=== PATIENT | female | born 1945 | race Caucasian/White ===

== ENCOUNTER 2021-08-12 11:54 | Emergency (ER) | payer MEDICARE, MEDICAID, SELFPAY | END 2021-08-12 13:46 | disposition left against medical advice (07) | PROVIDERS: Emergency Provider Emergency Medicine; PCP Internal Medicine | DX: R22.0 Localized swelling, mass and lump, head (principal) ==

== ENCOUNTER 2021-08-12 15:00 | Emergency (ER) | payer MEDICARE, MEDICAID, SELFPAY ==
[2021-08-12 16:47] VITALS: BP 153/55; PULSE 92; RESP 18; TEMP 36.8; O2SAT 100; BMI 20.2
--- NOTE | 2021-08-12 18:40 | ED_ITS ---
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 Per staff they noticed that her right-sided face was swollen. They deny any known injury or trauma. They did notice at will she was eating her breakfast she was grimacing while she was chewing. They deny any fevers, chills, difficulty breathing or difficulty swallowing. Related Data Previous Rx's Medication Instructions Recorded clindamycin HCl 300 mg capsule 300 mg PO TID #21 cap 08/12/21 Allergies Allergy/AdvReac Type Severity Reaction Status Date / Time JULIET Inhibitors Allergy Unknown UNKNOWN Verified 08/12/21 16:44 [JULIET INHIBITORS] Review of Systems Review of Systems: Yes all other systems are reviewed and are negative Constitutional: Constitutional: Reports no additional constitutional complaints, Denies body ache(s), Denies chills, Denies fever(s), Denies headache(s) and Denies weakness Eyes: Eyes: Reports no additional eye complaints and Denies change in vision ENT: Reports system reviewed and no additional complaints, except as documented, Reports dental pain, Denies dizziness, Reports facial pain, Denies headache(s), Denies nasal congestion, Denies nasal discharge and Denies neck pain Cardiovascular: Cardiovascular: Reports no additional cardiovascular complaints, Denies chest pain, Denies leg edema and Denies dyspnea Respiratory: Respiratory: Reports no additional respiratory complaints, Denies cough and Denies dyspnea Gastrointestinal: Gastrointestinal: Reports no additional gastrointestinal complaints, Denies abdominal pain, Denies diarrhea, Denies nausea and Denies vomiting Genitourinary: Genitourinary: Reports no additional female genitourinary complaints and Denies urinary incontinence Musculoskeletal: Musculoskeletal: Reports no additional musculoskeletal complaints, Denies back pain, Denies arthralgias, Denies joint swelling, Denies neck pain, Denies numbness and Denies tingling Integumentary/Breasts: Skin/Breast: Reports system reviewed and no additional complaints, except as docu and Denies rash Neurologic: Reports system reviewed and no additional complaints, except as d ocumented, Denies dizziness, Denies headache(s), Denies numbness, Denies tingling and Denies weakness [facility] Past Medical History Attestation statement: The following information was validated with the patient. Source: old records reviewed and nursing notes reviewed Medical History COVID-19 Diabetes Hyperlipidemia Hypertension Intellectual disability Osteoporosis Seizures Swallowing difficulty Social History Social History Advance Directives: No Advance Directives Information Provided: No Physical Exam Vital Signs: Vital Signs: Last Vital Signs Temp 98.2 F 08/12/21 16:47 Pulse 92 08/12/21 16:47 Resp 18 08/12/21 16:47 BP 153/55 H 08/12/21 16:47 Pulse Ox 100 08/12/21 16:47 BMI result Body Mass Index 20.2 Const: General: cooperative, healthy appearing, comfortable and no acute distress Limitations: no limitations HENMT: Other: Extensive dental caries. To the right cheek there is slight swelling and there is tenderness on exam. Unable to elicit which tooth is bothering the patient. There is no obvious fluctuance or induration that is concerning for an abscess. No trismus. Head: Yes normal to inspection Ears: hearing grossly normal bilaterally General nose exam: Normal external nose present Face and sinus: Yes normal facial exam Mouth: Normal oral and palatal mucosa present Throat: Yes posterior oropharynx normal Eyes: General: appearance normal, both eyes and all related structures Pupils: Equal, round and reactive pupils present Neck: Neck: Yes normal visual inspection, Yes full ROM and Yes no lymphadenopathy Chest: Chest palpation & inspection: normal inspection of the chest Resp: Effort & Inspection: normal respiratory effort Auscultation: clear to auscultation bilaterally Cardio: Rate: regular rate Rhythm: regular rhythm Peripheral pulses: Peripheral pulses 2+ throughout GI: Inspection: Yes normal to inspection Palpation (GI): Soft to palpation and nontender Auscultation: normal bowel sounds Back/Spine/Pelvis: Thoracic/Lumbar Spine: thoracic and lumbar spine normal to inspection Skin: General skin exam: no rashes or lesions noted Neuro: General: moves all extremities Cranial nerves: Yes Equal, round and reactive pupils present Extrem: General: Yes normal to inspection, Yes no pedal edema and Yes no calf tenderness Course Course Course Narrative: 75-year-old female nonverbal from a retirement with reports of right-sided facial swelling and some dental pain with chewing. Exam patien t had extensive dental caries. She does slight swelling and tenderness to the right cheek with no obvious abscess. Likely local cellulitis secondary to a dental infection. No fever. Patient is well-appearing and at her baseline per staff. Will start her on a course of antibiotics and have her follow-up with the dental clinic. Reviewed worrisome signs and symptoms of when to return to the emergency department. Comfortable discharge home. Medical Decision Making Medical Records Medical records reviewed: Yes I reviewed the patient's medical records. Lab Data Lab results reviewed: Yes I reviewed the patient's lab results. Discharge Plan Discharge Clinical Impression: Dental infection, Facial cellulitis Patient Disposition: Home, Self-Care Instructions: Cellulitis (ED), Toothache (ED) Additional Instructions: See dental clinic list soft diet take the antibiotic with food Prescriptions: New clindamycin HCl 300 mg capsule 300 mg PO TID Qty: 21 RF: 0 Referrals: Physician,Unknown J [Primary Care Provider] - 2 days
== END 2021-08-12 19:27 | disposition home or self-care (01) ==
LOC: HO.ED 18:38
PROVIDERS: Emergency Provider Emergency Medicine
DX: K04.7 Periapical abscess without sinus (principal); L03.211 Cellulitis of face; K02.9 Dental caries, unspecified
CPT/HCPCS: 99283

== ENCOUNTER 2021-11-21 16:04 | Outpatient (REF) | payer MEDICARE, MEDICAID, SELFPAY ==
[2021-11-21 17:35] LABS: Alanine Aminotransferase 16 U/L (0-31); Albumin Level 4.3 g/dL (3.5-5.0); Alkaline Phosphatase 87 U/L (39-117); Aspartate Amino Transferase 19 U/L (5-31); Bilirubin Direct < 0.2 mg/dL (0.0-0.5); Bilirubin Total 0.3 mg/dL (0.0-1.0); Total Protein 7.9 g/dL (6.5-8.0)
[2021-11-21 17:47] LABS: Phenytoin Dilantin 3.2 ug/mL (10.0-20.0)
== END 2021-11-21 16:05 | disposition home or self-care (01) ==
LOC: HO.LAB 16:04
PROVIDERS: PCP Internal Medicine; Visit Provider Psychiatry & Neurology Neurology
DX: G40.909 Epilepsy, unspecified, not intractable, without status epilepticus (principal); Z79.899 Other long term (current) drug therapy
CPT/HCPCS: 36415; 80076; 80185

== ENCOUNTER 2022-02-04 18:23 | Emergency (ER) | payer MEDICARE, MEDICAID, SELFPAY ==
[2022-02-04 18:27] VITALS: BP 175/71; PULSE 92; RESP 18; TEMP 37.2; O2SAT 98; BMI 20.6
[2022-02-04 18:56] LABS: MANUAL DIFF FLAG NO
[2022-02-04 19:07] LABS: Basophils Percent Auto 0.7 % (0-2); Eosinophils Absolute Auto 0.2 X10*3/uL (0.0-0.4); Eosinophils Percent Auto 3.3 % (0-4); Hematocrit 31.9 % (37.0-47.0); Hemoglobin 10.8 g/dl (12.0-16.0); Imm Gran Abs Auto 0.01 X10*3/uL (0.00-0.03); Imm Gran Pct Auto 0.2 % (0.0-0.4); Lymphocytes Absolute Auto 1.8 X10*3/uL (1.2-4.9); Lymphocytes Percent Auto 29.7 % (20-40); Mean Corpuscular HGB Conc 33.9 g/dl (31.0-35.0); Mean Corpuscular Hemoglobin 30.7 pg (27.0-33.0); Mean Corpuscular Volume 90.6 fL (80.0-98.0); Mean Platelet Volume 9.5 fL (9.4-12.3); Monocytes Absolute Auto 0.6 X10*3/uL (0.1-1.2); Monocytes Percent Auto 10.1 % (2-11); Neutrophils Absolute Auto 3.4 x10*3/uL (2.0-8.3); Platelet Count 310 X10*3/uL (160-400); Red Blood Count 3.52 X10*6/uL (4.20-5.50); Red Cell Distribution Width 12.2 % (11.0-16.0)
[2022-02-04 19:13] LABS: Alanine Aminotransferase 18 U/L (0-31); Alkaline Phosphatase 89 U/L (39-117); Anion Gap 18 (12-20); Aspartate Amino Transferase 19 U/L (5-31); Bilirubin Total 0.2 mg/dL (0.0-1.0); Blood Urea Nitrogen 15 mg/dL (9-16); Calcium 9.4 mg/dL (8.4-10.2); Carbon Dioxide 23 mmol/L (22-29); Chloride 92 mmol/L (96-108); Creatinine Clr Calc Pharmacy 35.5; Estimated Glomerular Filt Rate 52; Glucose Random 208 mg/dL (60-115); Potassium 4.4 mmol/L (3.3-5.1); Sodium 129 mmol/L (135-145); Total Protein 7.1 g/dL (6.5-8.0)
[2022-02-04 21:44] LABS: Appearance Urine HAZY; Color Urine YELLOW; Glucose Urine UA NEG (NEG); Leukocyte Esterase Urine 3+ (NEG); Nitrite Urine NEG (NEG); UACC Culture Trigger YES; Urine Blood NEG (NEG); Urine Ketones NEG (NEG); Urine Protein NEG (NEG-TRACE)
[2022-02-04 21:51] LABS: Bacteria Urine 4+ /LPF
[2022-02-04 21:52] LABS: Squamous Epithelial Cell Urine 2+ /LPF; WBC Clumps Urine NOTED
[2022-02-04 21:53] LABS: WBC Urine 30-49 /HPF (0-4)
[2022-02-04 21:54] LABS: RBC Urine 0-2 /HPF (0)
--- NOTE | 2022-02-04 22:02 | ED.FEMALEGU ---
HPI - Female Genitourinary General Chief complaint: Urogenital-Female Stated complaint: pain while urinating Time Seen by Provider: 02/04/22 21:01 Source: patient Mode of arrival: ambulatory Limitations: no limitations History of Present Illness HPI Narrative: 76 yold female presents to the ED dysuria as per daughter. Daughter states also increas urinary frequency. Patient states also midl abdominal cramping. Symptoms started today. Daughter and patient denies any chills, fever, chills, nausea, vomitting, or flank pain. Related Data Previous Rx's Medication Instructions Recorded clindamycin HCl 300 mg capsule 300 mg PO TID #21 cap 08/12/21 cefpodoxime 100 mg tablet 100 mg PO Q12H 7 Days #14 tab 02/04/22 Allergies Allergy/AdvReac Type Severity Reaction Status Date / Time JULIET Inhibitors Allergy Unknown UNKNOWN Verified 02/04/22 18:26 [JULIET INHIBITORS] Review of Systems Review of Systems: dysuria Yes all other systems are reviewed and are negative PMFSH Past Medical History Medical History COVID-19 Diabetes Hyperlipidemia Hypertension Intellectual disability Osteoporosis Seizures Swallowing difficulty Social History Social History Advance Directives: No Advance Directives Information Provided: No Physical Exam Vital Signs: Vital Signs: Last Vital Signs Temp 97.8 F 02/04/22 23:01 Pulse 76 02/04/22 23:01 Resp 16 02/04/22 23:01 BP 118/61 02/04/22 23:01 Pulse Ox 99 02/04/22 23:01 BMI result Body Mass Index 20.6 Const: General: cooperative, healthy appearing, comfortable, no acute distress, well developed, alert, awake and Physically active Orientation/consciousness: oriented to time and patient oriented x3 HEENT: Head: Yes normal to inspection, Yes No palpable skull fracture present, Yes normocephalic, Yes atraumatic, No abrasion, No Acrocyanosis present, No Coffey's sign, No contusion, No cranial bruits, No hematoma, No laceration, No occipital foramen tenderness, No palpable skull fracture, No raccoon eyes, No scalp lesion, No scalp tenderness, No Temporal artery tenderness present and No periorbital ecchymosis Eyes: General: appearance normal, both eyes and all related structures Neck: Neck: Yes normal visual inspection, Yes full ROM, Yes no lymphadenopathy, Yes no meningeal signs, Yes trachea midline, Yes supple, No anterior neck swelling and No tender Chest: Chest palpation & inspection: normal inspection of the chest and normal palpation of entire chest wall Resp: Effort & Inspection: normal respiratory effort and able to speak in complete sentences Auscultation: clear to auscultation bilaterally Cardio: Jugular venous distension: no JVD Heart sounds: S1 normal heart sound present and S2 normal heart sound present GI: Inspection: Yes normal to inspection and No abdominal wall ecchymosis Palpation (GI): Soft to palpation, not firm, nontender, no guarding and not rigid : General: No CVA tenderness and Yes no CVA tenderness Back/Spine/Pelvis: Back: no CVA tenderness, No CVA tenderness and No back tenderness Skin: General skin exam: no rashes or lesions noted and elasticity normal Neuro: General: oriented to time, patient oriented x3, gait normal, no meningeal signs and CN's II-XI intact bilaterally Cranial nerves: Yes CN's II-XII intact bilaterally Extrem: General: Yes normal to inspection, Yes full ROM, Yes capillary refill normal and Yes normal exam except as noted Psych: Appearance: grossly normal, well kempt and not disheveled Course Course Course Narrative: labs and UA ordered Reevaluation(s) Reevaluation #1: Labs are at baseline. UA shows UTI. patient discharged with antibiotics Time: 22:23 MDM - Female Genitourinary MDM Narrative Medical decision making narrative: UTI Lab Data Result diagrams: 02/04/22 18:51 02/04/22 18:51 Labs: Lab Results 02/04/22 02/04/22 02/04/22 Range/Units 18:51 18:51 21:39 WBC 6.0 (4.8-10.8) X10*3/uL RBC 3.52 L (4.20-5.50) X10*6/uL Hgb 10.8 L (12.0-16.0) g/dl Hct 31.9 L (37.0-47.0) % MCV 90.6 (80.0-98.0) fL MCH 30.7 (27.0-33.0) pg MCHC 33.9 (31.0-35.0) g/dl RDW 12.2 (11.0-16.0) % Plt Count 310 (160-400) X10*3/uL MPV 9.5 (9.4-12.3) fL Immature Gran % (Auto) 0.2 (0.0-0.4) % Neut % (Auto) 56.0 (45-73) % Lymph % (Auto) 29.7 (20-40) % [place] % (Auto) 10.1 (2-11) % Eos % (Auto) 3.3 (0-4) % Baso % (Auto) 0.7 (0-2) % Lymph # (Auto) 1.8 (1.2-4.9) X10*3/uL [place] # (Auto) 0.6 (0.1-1.2) X10*3/uL Eos # (Auto) 0.2 (0.0-0.4) X10*3/uL Baso # (Auto) 0.0 (0.0-0.2) X10*3/uL Abs Immat Gran (auto) 0.01 (0.00-0.03) X10*3/uL Absolute Neuts (auto) 3.4 (2.0-8.3) x10*3/uL Absolute Nucleated RBC 0.000 (0.0-0.012) X10*3/uL Nucleated RBC % (auto) 0.0 (0.0-0.2) /100WBC Sodium 129 L (135-145) mmol/L Potassium 4.4 (3.3-5.1) mmol/L Chloride 92 L (96-108) mmol/L Carbon Dioxide 23 (22-29) mmol/L Anion Gap 18 (12-20) BUN 15 (9-16) mg/dL Creatinine 1.03 (0.5-1.4) mg/dL Estim Creat Clear Calc 35.5 Estimated GFR 52 Random Glucose 208 H (60-115) mg/dL Calcium 9.4 (8.4-10.2) mg/dL Total Bilirubin 0.2 (0.0-1.0) mg/dL AST 19 (5-31) U/L ALT 18 (0-31) U/L Alkaline Phosphatase 89 (39-117) U/L Total Protein 7.1 (6.5-8.0) g/dL Albumin 4.0 (3.5-5.0) g/dL Urine Color YELLOW Urine Appearance HAZY Urine pH 6.0 (5.0-8.0) Ur Specific [place] 1.010 (1.005-1.025) Urine Protein NEG (NEG-TRACE) MG/DL Urine Glucose (UA) NEG (NEG) MG/DL Urine Ketones NEG (NEG) MG/DL Urine Blood NEG (NEG) Urine Nitrite NEG (NEG) Ur Leukocyte Esterase 3+ H (NEG) Urine RBC 0-2 (0) /HPF Urine WBC 30-49 H (0-4) /HPF Urine WBC Clumps NOTED Ur Squamous Epith Cells 2+ /LPF Urine Bacteria 4+ /LPF Discharge Plan Discharge Clinical Impression: Urinary tract infection Patient Disposition: Home, Self-Care Instructions: Urinary Tract Infection in Women (ED) Additional Instructions: You have a urine infection. You will be discharged with antibiotics. Return to the ED immediately for any abdominal pain, hematuria, dysuria, flank pain, fever, chills, nausea, vomitting, or any other concerning symptoms. Please follow up with PCP. ELEMENTARY LIBRARIAN can give patient medication. Prescriptions: New cefpodoxime 100 mg tablet 100 mg PO Q12H 7 Days Qty: 14 0RF Rx Instructions: must administer with a meal/food No Action clindamycin HCl 300 mg capsule 300 mg PO TID Qty: 21 0RF Interventions: ED Discharge Assessment Last Done: 02/04/22 23:02 Discharge Date/Time: 02/04/22 23:03 Print Language: Thai
[2022-02-04 23:01] VITALS: BP 118/61; PULSE 76; RESP 16; TEMP 36.6; O2SAT 99
== END 2022-02-04 23:03 | disposition home or self-care (01) ==
PROVIDERS: Emergency Provider Internal Medicine
DX: N39.0 Urinary tract infection, site not specified (principal); B96.20 Unspecified Escherichia coli [E. coli] as the cause of diseases classified elsewhere; E11.9 Type 2 diabetes mellitus without complications; I10 Essential (primary) hypertension; E78.5 Hyperlipidemia, unspecified
CPT/HCPCS: 36415; 51701; 80053; 81001; 85025; 87086; 87088; 87186; 99284

== ENCOUNTER 2022-03-13 16:49 | Emergency (ER) | payer MEDICARE, MEDICAID, SELFPAY ==
[2022-03-13 17:32] VITALS: BP 169/73; PULSE 91; RESP 18; TEMP 36.9; O2SAT 98; BMI 22.2
[2022-03-13 17:58] LABS: Hematocrit 32.1 % (37.0-47.0); Hemoglobin 10.5 g/dl (12.0-16.0); Mean Corpuscular HGB Conc 32.7 g/dl (31.0-35.0); Mean Corpuscular Hemoglobin 30.4 pg (27.0-33.0); Mean Platelet Volume 9.7 fL (9.4-12.3); Platelet Count 294 X10*3/uL (160-400); Red Blood Count 3.45 X10*6/uL (4.20-5.50); Red Cell Distribution Width 12.2 % (11.0-16.0); White Blood Count 6.1 X10*3/uL (4.8-10.8)
[2022-03-13 17:59] LABS: Anion Gap 17 (12-20); Blood Urea Nitrogen 23 mg/dL (9-16); Calcium 9.3 mg/dL (8.4-10.2); Carbon Dioxide 25 mmol/L (22-29); Chloride 93 mmol/L (96-108); Creatinine Clr Calc Pharmacy 28.6; Estimated Glomerular Filt Rate 45; Glucose Random 240 mg/dL (60-115); Potassium 4.7 mmol/L (3.3-5.1); Sodium 130 mmol/L (135-145)
[2022-03-13 18:06] LABS: B Type Natriuretic Peptide 13 pg/mL (<100); Troponin-I High Sensitivity < 3.5 ng/L (<3.5-17.0)
--- NOTE | 2022-03-13 22:51 | ECG_ITS ---
Test Reason : LETHAGRY Blood Pressure : / mmHG Vent. Rate : 083 BPM Atrial Rate : 083 BPM P-R Int : 156 ms QRS Dur : 062 ms QT Int : 362 ms P-R-T Axes : 039 018 052 degrees QTc Int : 425 ms Normal sinus rhythm Low voltage QRS Cannot rule out Anterior infarct , age undetermined Abnormal ECG When compared with ECG of 22-MAY-2020 10:37, ST elevation now present in Inferior leads Referred By: Tawnya Ryan Electronically Signed By:KARINA DAILY MD
--- NOTE | 2022-03-13 23:35 | ED.GENADULT ---
HPI - General Adult General Chief complaint: General Medical Stated complaint: dehydration Time Seen by Provider: 03/13/22 22:50 Source: patient, account leader and other Mode of arrival: EMS History of Present Illness HPI narrative: 76-year-old female who is [facility] in [facility] for several days of noticing that the patient has not been eating or drinking and has exhibited decreased urine output but PROCESSING MGR who is at her bedside states that she is at her baseline mentation although less active. Patient gives an affirmative when she is asked about fever, chills, abdominal pain, nausea/vomiting. Related Data Previous Rx's Medication Instructions Recorded clindamycin HCl 300 mg capsule 300 mg PO TID #21 caps 08/12/21 cefpodoxime 100 mg tablet 100 mg PO Q12H 7 days #14 tabs 02/04/22 cefdinir 300 mg capsule 300 mg PO BID 5 days #10 caps 03/14/22 Allergies Allergy/AdvReac Type Severity Reaction Status Date / Time JULIET Inhibitors Allergy Unknown UNKNOWN Verified 02/04/22 18:26 [JULIET INHIBITORS] Review of Systems Review of Systems: Pertinent positives and negatives as stated in the HPI 10 point review of systems is otherwise negative. [facility] Past Medical History Source: nursing notes reviewed Medical History COVID-19 Diabetes Hyperlipidemia Hypertension Intellectual disability Osteoporosis Seizures Swallowing difficulty Social History Social History Advance Directives: No Physical Exam ED Vital Signs: Vital Signs - 24 hr 03/13/22 17:32 Temperature 98.4 F Pulse Rate 91 Respiratory Rate 18 Blood Pressure 169/73 H Pulse Oximetry 98 Oxygen Delivery Method Room Air BMI result Body Mass Index 22.2 VITAL SIGNS: Reviewed. GENERAL: Well developed, well nourished, in no acute distress. HEAD: Normocephalic/atraumatic EYES: PERRLA, EOMI EARS: Ext canals without abnormality OROPHARYNX: no oral lesions noted, posterior pharynx clear, dry mucosa NECK: Supple, no adenopathy LUNGS: Normal breath sounds. No adventitious sounds or accessory muscle use. SpO2<98> CARDIOVASCULAR: Regular rate and rhythm without noted murmurs, no JVD or lower extremity edema. ABDOMEN: Soft, tenderness on palpation without rebound, non-distended with bowel sounds. MUSCULOSKELETAL: No tenderness, deformities, or effusions noted on gross inspection. EXTREMITIES: No cyanosis, clubbing or edema. SKIN: Inspection of the skin reveals no rashes NEUROLOGIC: Alert and oriented x 4. Strength and sensation to light touch were grossly intact x 4. Course Course Course Narrative: 76-year-old female with history and clinical presentation most consistent with UTI suspect concomitant dehydration. Patient also has multiple dental caries and minimal amount of teeth. No obvious dental infection noted. Review of all investigations significant for UTI and dehydration. Patient to receive 1 L of IV fluids and initial antibiotics. Both the patient and the research group director were informed of results and the plan. [facility] facility with remaining course of antibiotics. Medical Decision Making Lab Data Result diagrams: 03/13/22 17:37 03/13/22 17:37 Labs: Lab Results 03/13/22 03/13/22 03/13/22 Range/Units 17:37 17:37 17:37 WBC 6.1 (4.8-10.8) X10*3/uL RBC 3.45 L (4.20-5.50) X10*6/uL Hgb 10.5 L (12.0-16.0) g/dl Hct 32.1 L (37.0-47.0) % MCV 93.0 (80.0-98.0) fL MCH 30.4 (27.0-33.0) pg MCHC 32.7 (31.0-35.0) g/dl RDW 12.2 (11.0-16.0) % Plt Count 294 (160-400) X10*3/uL MPV 9.7 (9.4-12.3) fL Absolute Nucleated RBC 0.000 (0.0-0.012) X10*3/uL Nucleated RBC % (auto) 0.0 (0.0-0.2) /100WBC Sodium 130 L (135-145) mmol/L Potassium 4.7 (3.3-5.1) mmol/L Chloride 93 L (96-108) mmol/L Carbon Dioxide 25 (22-29) mmol/L Anion Gap 17 (12-20) BUN 23 H D (9-16) mg/dL Creatinine 1.16 (0.5-1.4) mg/dL Estim Creat Clear Calc 28.6 Estimated GFR 45 Random Glucose 240 H (60-115) mg/dL Calcium 9.3 (8.4-10.2) mg/dL Troponin I High Sens < 3.5 (<3.5-17.0) ng/L B-Natriuretic Peptide 13 (<100) pg/mL Urine Color Urine Appearance Urine pH (5.0-8.0) Ur Specific [place] (1.005-1.025) Urine Protein (NEG-TRACE) MG/DL Urine Glucose (UA) (NEG) MG/DL Urine Ketones (NEG) MG/DL Urine Blood (NEG) Urine Nitrite (NEG) Ur Leukocyte Esterase (NEG) Urine RBC (0) /HPF Urine WBC (0-4) /HPF Urine WBC Clumps Ur Squamous Epith Cells /LPF Urine Bacteria /LPF 03/14/22 Range/Units 00:37 WBC (4.8-10.8) X10*3/uL RBC (4.20-5.50) X10*6/uL Hgb (12.0-16.0) g/dl Hct (37.0-47.0) % MCV (80.0-98.0) fL MCH (27.0-33.0) pg MCHC (31.0-35.0) g/dl RDW (11.0-16.0) % Plt Count (160-400) X10*3/uL MPV (9.4-12.3) fL Absolute Nucleated RBC (0.0-0.012) X10*3/uL Nucleated RBC % (auto) (0.0-0.2) /100WBC Sodium (135-145) mmol/L Potassium (3.3-5.1) mmol/L Chloride (96-108) mmol/L Carbon Dioxide (22-29) mmol/L Anion Gap (12-20) BUN (9-16) mg/dL Creatinine (0.5-1.4) mg/dL Estim Creat Clear Calc Estimated GFR Random Glucose (60-115) mg/dL Calcium (8.4-10.2) mg/dL Troponin I High Sens (<3.5-17.0) ng/L B-Natriuretic Peptide (<100) pg/mL Urine Color YELLOW Urine Appearance CLOUDY Urine pH 6.0 (5.0-8.0) Ur Specific [place] 1.015 (1.005-1.025) Urine Protein NEG (NEG-TRACE) MG/DL Urine Glucose (UA) NEG (NEG) MG/DL Urine Ketones NEG (NEG) MG/DL Urine Blood NEG (NEG) Urine Nitrite POS H (NEG) Ur Leukocyte Esterase 2+ H (NEG) Urine RBC 0 (0) /HPF Urine WBC 15-29 H (0-4) /HPF Urine WBC Clumps NOTED Ur Squamous Epith Cells 2+ /LPF Urine Bacteria 4+ /LPF ECG Data Attestation: I personally reviewed and interpreted this ECG as follows: Prior ECG tracings: available for review Interpretation: NSR, HR -83, no STEMI, CA/QRS/QTC is within normal limits. Discharge Plan Discharge Clinical Impression: Dehydration, Acute UTI Patient Disposition: Still a Patient Instructions: Dehydration (ED), Urinary Tract Infection in Older Adults (ED) Additional Instructions: 1. Reanudar todos los medicamentos caseros seg?n lo prescrito. Contin?e bebiendo prakash agua. 2. Complete todo el ciclo de antibi?ticos. Prescriptions: New cefdinir 300 mg capsule 300 mg PO BID 5 Days Qty: 10 0RF No Action clindamycin HCl 300 mg capsule 300 mg PO TID Qty: 21 0RF cefpodoxime 100 mg tablet 100 mg PO Q12H 7 Days Qty: 14 0RF Rx Instructions: must administer with a meal/food Referrals: Antoine Dominguez III, MD [Primary Care Provider] - Print Language: Libyan
[2022-03-14 00:46] LABS: Appearance Urine CLOUDY; Color Urine YELLOW; Glucose Urine UA NEG (NEG); Leukocyte Esterase Urine 2+ (NEG); Nitrite Urine POS (NEG); Specific Gravity - Urine 1.015 (1.005-1.025); UACC Culture Trigger YES; Urine Blood NEG (NEG); Urine Ketones NEG (NEG); Urine Protein NEG (NEG-TRACE)
[2022-03-14 00:51] LABS: Bacteria Urine 4+ /LPF; RBC Urine 0 /HPF (0); Squamous Epithelial Cell Urine 2+ /LPF; WBC Clumps Urine NOTED
[2022-03-14] MEDS: 0.9 % Sodium Chloride 1,000 ML 999 ML IV (00:52)
[2022-03-14] MEDS: cefTRIAXone sodium 1 GM in 0.9 % Sodium Chloride 50 ML IV (01:52)
[2022-03-14 02:52] VITALS: BP 170/75; PULSE 84; TEMP 36.2; O2SAT 99
== END 2022-03-14 03:20 | disposition home or self-care (01) ==
PROVIDERS: Student in an Organized Health Care Education/Training Program; Emergency Provider Internal Medicine; PCP Internal Medicine
DX: N39.0 Urinary tract infection, site not specified (principal); E86.0 Dehydration; R06.02 Shortness of breath; Z79.899 Other long term (current) drug therapy
CPT/HCPCS: 36415; 80048; 81001; 83880; 84484; 85027; 87086; 87088; 87186; 93005; 96361; 96374; 99284; 99285; J0696

== ENCOUNTER 2022-07-16 17:01 | Emergency (ER) | payer MEDICARE, MEDICAID, SELFPAY ==
[2022-07-16] VITALS (7 sets, daily range): BP systolic 127–203; BP diastolic 46–105; PULSE 78–106; RESP 16–18; TEMP 36.4–36.9; O2SAT 98–100; BMI 21.4
--- NOTE | ~2022-07-16 | CT_ITS ---
EXAMINATION: NONCONTRAST HEAD CT NONCONTRAST CERVICAL SPINE CT INDICATION INFORMATION: Status post fall with head/neck injury COMPARISON: Head and C-spine CT 06/25/2019 TECHNIQUE: Separate noncontrast CT examinations of the head and cervical spine were performed. Coronal and sagittal images were created for each examination at the technologist workstation. This CT examination was performed using dose optimization techniques as appropriate, variously including the following: *Automated exposure control *Adjustment of mA and/or kV according to patient size (this includes techniques or standardized protocols for targeted exams where dose is matched to indication/reason for exam; i.e. extremities or head) *Use of iterative reconstruction technique DLP: 980 mGy-cm FINDINGS: HEAD: Unchanged 1.7 cm distally calcified extra-axial lesion overlying the posterior left temporal lobe, likely meningioma. No other intra or extra-axial fluid collection, hemorrhage, or mass. No ventriculomegaly. No midline shift or herniation. Basal cisterns are patent. Maurer-white matter differentiation is maintained. No territorial encephalomalacia. Some partial ossification of the falx cerebri and extending along the tentorial leaflets noted. Proportional prominence of the ventricles and sulcal spaces is consistent with mild volume loss. Patchy periventricular and deep white matter hypoattenuation is consistent with mild small vessel ischemic changes. No calvarial fracture or soft tissue abnormality. Hyperostosis interna. Mucosal thickening in the ethmoid and sphenoid sinuses. Mastoid air cells normally aerated. Status post bilateral lens extractions. Severe degenerative change at the left TMJ. CERVICAL SPINE: Alignment: Patient's head/neck is held in extension. No subluxation. Vertebra: No acute fracture. No prevertebral soft tissue swelling. Degenerative disc disease: Severe cervical spondylosis at C6-C7 characterized by severe disc height loss and endplate sclerosis and abundant endplate proliferative change. Bulky anterior endplate osteophytes projecting leftward at C5-C6. Advanced multilevel facet arthrosis bilaterally. Other findings: No cervical lymphadenopathy. Visualized major salivary glands and thyroid gland are unremarkable. Visualized lung apices are clear. CT/CT cervical spine wo IV con IMPRESSION: 1. No intracranial hemorrhage, calvarial fracture, or other acute intracranial abnormality. 2. No traumatic subluxation or acute cervical spine fracture. 3. Unchanged 1.7 cm calcified extra-axial lesion overlying the posterior left temporal lobe, likely calcified meningioma.
--- NOTE | ~2022-07-16 | CT_ITS ---
EXAMINATION: CT CHEST, ABDOMEN AND PELVIS WITHOUT CONTRAST. CLINICAL INFORMATION: Reason for Exam s/p fall c back/coccyx injury . COMPARISON: No pertinent prior studies are available for comparison. TECHNIQUE: Multidetector volumetric imaging was performed from the thoracic inlet through the pubic symphysis without contrast. Sagittal and coronal reformatted images were obtained on the technologist workstation. This CT examination was performed using dose optimization techniques as appropriate, variously including the following: *Automated exposure control *Adjustment of mA and/or kV according to patient size (this includes techniques or standardized protocols for targeted exams where dose is matched to indication/reason for exam; i.e. extremities or head) *Use of iterative reconstruction technique Total exam dose-length product 506 mGy-cm FINDINGS: CHEST: VASCULAR: The aorta is unremarkable; no evidence of aneurysm or periaortic hemorrhage. The central pulmonary arteries enhance normally. AORTIC ISTHMUS: Normal. MEDIASTINUM: No mediastinal fluid or hematoma. Heart size normal. No hilar or mediastinal lymphadenopathy. LUNG: No nodules, mass, or focal consolidation. PLEURA: No pleural effusion. No pneumothorax. No pleural mass or thickening. CHEST WALL/AXILLA: Unremarkable. ABDOMEN/PELVIS : LIVER : The liver is normal in size, shape, and attenuation. No focal hepatic lesion or biliary ductal dilatation is present. GALLBLADDER, AND BILIARY TREE The gallbladder is unremarkable with no evidence of radiopaque gallstones, gallbladder wall thickening, or obvious pericholecystic inflammatory changes. PANCREAS: Normal; no mass or surrounding fluid. SPLEEN: Normal size. No focal lesion. ADRENAL GLANDS: Normal; no mass. KIDNEYS AND URETERS: The kidneys are normal in size, shape, and attenuation. No hydronephrosis, hydroureter, or calculi. URINARY BLADDER: No focal mass or wall thickening seen. No bladder calculi. GASTROINTESTINAL TRACT: Stomach and small bowel non-dilated. No colonic wall thickening or pericolonic inflammatory changes. Normal appendix. VASCULAR STRUCTURES: There is no evidence of aortic or iliac injury. The inferior vena cava is intact. ACTIVE BLEEDING: No hematomas LYMPH NODES: No lymphadenopathy. PELVIC VISCERA: The vagina is distended with fluid and outlining cervix. The uterus is unremarkable. An abnormal adnexal mass is not seen. FREE FLUID: None. ABDOMINAL WALL: No significant hernia is appreciated. OSSEOUS STRUCTURES : No clavicle or scapula fracture. No displaced rib fracture seen. No sternal fracture seen.Degenerative changes are present throughout the spine. Pars defects are seen at L4 with mild grade 1 anterolisthesis. Normal sagittal alignment of the thoracic and lumbar spine. Vertebral body and disc heights are maintained; no compression fracture. No sacral, coccygeal or pelvic fracture, The visualized hips are intact. CT/CT abdomen pelvis wo IV con IMPRESSION: No evidence of an acute traumatic injury in the chest abdomen or pelvis. Incidental findings described above including degenerative changes in the spine and a fluid-filled vagina.
--- NOTE | 2022-07-16 17:25 | ECG_ITS ---
Test Reason : FALL Blood Pressure : / mmHG Vent. Rate : 084 BPM Atrial Rate : 084 BPM P-R Int : 178 ms QRS Dur : 060 ms QT Int : 360 ms P-R-T Axes : 063 027 049 degrees QTc Int : 425 ms Normal sinus rhythm RSR' or QR pattern in V1 suggests right ventricular conduction delay Low voltage QRS Borderline ECG When compared with ECG of 14-MAR-2022 00:12, No significant change was found Referred By: Shaye Arambula Electronically Signed By:RODRIGUE ROBLES MD
--- NOTE | 2022-07-16 17:28 | ED_ITS ---
HPI - Fall General Chief Complaint: Fall <BOAZ Dover - Last Filed: 07/16/22 19:02> Stated Complaint: mechanical fall hit head (-) thinners <BOAZ Dover - Last Filed: 07/16/22 19:02> Time Seen by Provider: 07/16/22 17:13 <BOAZ Dover - Last Filed: 07/16/22 19:02> Source: patient and EMS <BOAZ Dover Last Filed: 07/16/22 19:02> Mode of arrival: EMS <BOAZ Dover - Last Filed: 07/16/22 19:02> Limitations: other (patient is nonverbal and her language was nauruan ) <BOAZ Dover Last Filed: 07/16/22 19:02> History of Present Illness HPI Narrative: 76yoF who is nonverbal at baseline currently residing at [facility] c PMHx of non-insulin dependent diabetes, HTN, HLD, seizure disorder who is presenting to the ED via EMS after she had a fall prior to arrival at the [facility] that was witnessed by 1 of the caretakers. The product technician who is now at bedside reports that the patient usually uses a walker while she is in the [facility] and she can only use a wheelchair for transfers usually when she has to go to an appointment and they tried to limit the wheelchair usage while in the [facility]. Although the patient has been asking for the wheelchair since this morning. The product technician with getting her up and bring her to the living area and noticed that she has had a smell of poop so she checked her diaper and she noticed that the patient has some diarrhea and when she went to bring her to the bathroom to change her the patient just fell on her butt and then fell back and hit her head. She did not lose consciousness. There was no prolonged down time. She is not on any blood thinners. She reports she is at baseline at this time. Although the product technician at bedside reports that she may have some general weakness and that is why she has been asking for her wheelchair or has not been feeling well she believes. Lease Administration Supervisor reports that the patient has been coughing and she believes she has a chronic cough no new cough. She has not had any fevers that they have noticed, she has not been spitting up any mucus, she does not have any nasal congestion or rhinorrhea, she does not have any obvious chest pain or shortness of breath or abdominal pain. She did have 2 episodes of diarrhea today prior to arrival. They deny any other symptoms complaints or concerns at this time. Patient is noted to be hypertensive. She appears to be on hydrochlorothiazide and losartan [facility] staff member is calling [facility] to ensure that the patient received her blood pressure medication this morning. 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) <BOAZ Dover - Last Filed: 07/16/22 19:02> Fall witnessed: yes, by living facility staff <BOAZ Dover - Last Filed: 07/16/22 19:02> Place fall occurred: other (pt resides in [facility] ) <BOAZ Dover - Last Filed: 07/16/22 19:02> Loss of consciousness: none <BOAZ Dover - Last Filed: 07/16/22 19:02> Prolonged down time: no <BOAZ Dover - Last Filed: 07/16/22 19:02> Symptoms prior to fall: none <BOAZ Dover - Last Filed: 07/16/22 19:02> Context: other (see above ) <BOAZ Dover - Last Filed: 07/16/22 19:02> Location of injury: head, back and buttocks <BOAZ Dover Last Filed: 07/16/22 19:02> Related Data Home Medications: Previous Rx's Medication Instructions Recorded clindamycin HCl 300 mg capsule 300 mg PO TID #21 caps 08/12/21 cefpodoxime 100 mg tablet 100 mg PO Q12H 7 days #14 tabs 02/04/22 cefdinir 300 mg capsule 300 mg PO BID 5 days #10 caps 03/14/22 cefpodoxime 100 mg tablet 100 mg PO Q12H 7 days #14 tabs 07/17/22 <BOAZ Dover - Last Filed: 07/16/22 19:02> Allergies/Adverse Reactions: Allergies Allergy/AdvReac Type Severity Reaction Status Date / Time JULIET Inhibitors Allergy Unknown UNKNOWN Verified 07/16/22 17:34 [JULIET INHIBITORS] <BOAZ Dover - Last Filed: 07/16/22 19:02> Review of Systems Review of Systems: Constitutional : No Weight loss, No Fever, No Chills, No Night Sweats, No Fatigue, No Malaise ENT/Mouth : No Hearing loss, No Ear Pain, No Nasal Congestion, No Sinus Pain, No Hoarseness, No sore throat, No Rhinorrhea, No Swallowing Difficulty Eyes: No Eye Pain, No Swelling, No Redness, No Foreign Body, No Discharge, No Vision Changes Cardiovascular : No Chest Pain, No SOB, No Dyspnea on Exertion, No Orthopnea, No Edema, No Palpitations Respiratory : No Cough, No Sputum, No Wheezing, No Smoke Exposure, No Dyspnea Gastrointestinal : + Diarrhea, No Nausea, No Vomiting, No Constipation, No abdominal Pain, No Hematochezia, No Melena Genitourinary : no irregular bleeding, No Dysuria, No Urinary Frequency, No Hematuria, No Urinary Incontinence, No Urgency, No Flank Pain, No Urinary Flow Changes, No Hesitancy Musculoskeletal : No joint pain, No Myalgias, No Joint Swelling Skin : No Skin Lesions, No rash Neuro : + General weakness, No Focal weakness, No Numbness, No Paresthesias, No Loss of Consciousness, No Dizziness, No Headache Psych : No Anxiety/Panic, No Depression, No SI/HI/AH/VH, No Social Issues, Heme/Lymph: No Bruising, No Bleeding,No Lymphadenopathy Endocrine : No Polyuria, No Polydipsia, No Temperature Intolerance <BOAZ Dover - Last Filed: 07/16/22 19:02> Yes all other systems are reviewed and are negative <BOAZ Dover - Last Filed: 07/16/22 19:02> [facility] Past Medical History Source: old records reviewed, nursing notes reviewed and other (obtained from assisted staff member ) <BOAZ Dover - Last Filed: 07/16/22 19:02> Medical History: Medical History COVID-19 Diabetes Hyperlipidemia Hypertension Intellectual disability Osteoporosis Seizures Swallowing difficulty <BOAZ Dover - Last Filed: 07/16/22 19:02> Social History Social History: Social History Advance Directives: Yes Advance Directives Information Provided: No Advance Directives on File: No <BOAZ Dover - Last Filed: 07/16/22 19:02> Physical Exam Vital Signs: Vital Signs: Last Vital Signs Temp 97.7 F 07/17/22 00:00 Pulse 81 07/17/22 00:00 Resp 10 L 07/17/22 00:00 BP 141/56 H 07/17/22 00:00 Pulse Ox 97 07/17/22 00:00 O2 Del Method 07/17/22 00:00 BMI result Body Mass Index 21.4 vital signs have been reviewed as normal and appeared to be correct. Blood pressure 203/105. Heart rate normal. Respiration rate normal. Temperature normal. Oxygen saturation normal. <BOAZ Dover - Last Filed: 07/16/22 19:02> Vital Signs: Last Vital Signs Temp 97.7 F 07/17/22 00:00 Pulse 81 07/17/22 00:00 Resp 10 L 07/17/22 00:00 BP 141/56 H 07/17/22 00:00 Pulse Ox 97 07/17/22 00:00 O2 Del Method 07/17/22 00:00 BMI result Body Mass Index 21.4 <BOAZ Marinelli - Last Filed: 07/17/22 02:07> Appearance: Alert. Nonverbal at baseline per [facility] staff member.. No acute distress. No signs of trauma. Head: Normal external exam. Normocephalic. Atraumatic. No Coffey signs noted. No raccoon eyes noted Eyes: PERRLA. EOMI. Conjunctiva and sclera normal. Eyelids normal. ENT: EAC normal. TM's Normal. No septal hematoma noted. No hemotympanum noted. Pharynx normal. Uvula midline. Moist mucous membranes. No lesions/ulcerations or masses noted on the tongue. Normal voice. No trismus noted. No drooling noted. No muffled voice noted. Neck: Normal inspection. Neck supple. FROM. No adenopathy. Thyroid Normal. No tracheal deviation noted. No crepitus is noted. No meningeal signs. No neck mass noted. No signs of trauma noted. CVS: Normal heart rate and rhythm. Heart sound normal. Pulses normal throughout. No murmurs/rales/gallops. Respiratory: No respiratory distress. Painless inspiration. Breath sounds normal. No wheezes/rales/rhonchi noted. Chest nontender. No crepitus is noted. No accessory muscle usage noted or decreased air movement noted. No signs of trauma. Abdomen: Soft and nontender. Nondistended. No guarding. No rigidity. Bowel sounds normal in all 4 quadrants. No distention noted. No organomegaly noted. No visible injury noted. No rebound tenderness. Negative Rovsing sign. Negative obturator's sign. Negative psoas sign. Negative Martinez sign. Back: No CVA tenderness. Full range of motion noted. Nontender. No signs of trauma. Patient neuro intact bilaterally and distally on all 4 extremities. Patient's reflexes intact bilaterally and distally on all 4 extremities. No rashes/lesion/induration/fluctuance or signs of infection noted. Skin: Skin warm and dry. Normal skin color. Normal skin turgor. Psoriasis rash noted No rashes/lesions/lacerations noted. Extremities: No lower extremity edema. No calf tenderness is noted. Extremities exhibit normal range of motion and nontender. Neuro: Alert and awake and responsive. No motor deficit. No sensory deficit. Reflexes normal. No focal neuro deficits noted. CN's II-XII intact bilaterally? Vascular: + radial pulses/+ 2 distal pedal pulses/+2 dorsalis pedis b/l. Normal cap refill. No cyanosis noted to upper extremity nails and lower extremity toes nails. 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 assisted staff member reports that she fell on her buttocks and then fell back. She did not have any prolonged down time and she did not lose consciousness. She is not on any blood thinners. assisted staff manager appointment reports that she is unsure if he took her blood pressure medication this morning as patient is noted to be hypertensive. assisted staff member reports that she is at baseline. Al though she feels like she might have some general weakness or possible UTI, due to she has been asking for her wheelchair today and she normally only uses a wheelchair when she is out of the home or for transfers she normally walks with a walker. Plan: Labs, EKG, CT scan of brain/cervical spine/chest/abdomen pelvis with IV contrast, blood cultures, lactic acid, COVID/RSV/flu swab, obtain a UA by straight cath. Provide a L of fluids and re-evaluate. <BOAZ Dover - Last Filed: 07/16/22 19:02> Reevaluation(s) Reevaluation #1: - labs return patient with a mild baseline anemia which is improved when compared to prior with an H&H of 11.3/33.3. - Sodium 133. - Chloride 91. - BUN 20. - Random glucose 177. - Lactic acid 3.5. - Calcium 10.3. - Troponin 4.6. - therefore patient will have a repeat troponin. - CT scan of brain/cervical spine revealed chronic changes. - CT scan abdomen pelvis without IV contrast and CT scan of chest revealed chronic changes no acute processes noted. - still awaiting EKG, UA, COVID/RSV/flu swab. Sign out to WALDO Murphy. <BOAZ Dover - Last Filed: 07/16/22 19:02> Time: 18:53 <BOAZ Dover - Last Filed: 07/16/22 19:02> Reevaluation #2: Second troponin negative. Images negative for any trauma. Lactic acid negative. UA shows UTI. Patient to be discharged with antibiotics. Family member will being patient back to [facility]. <BOAZ Marinelli - Last Filed: 07/17/22 02:07> Time: 01:51 <BOAZ Marinelli - Last Filed: 07/17/22 02:07> Medications Administered Discontinued Medications Generic Name Dose Route Start Last Admin Trade Name Freq PRN Reason Stop Dose Admin Sodium Chloride 1,000 mls @ 999 mls/hr 07/16/22 18:45 07/16/22 21:36 Ns IVCONT 07/16/22 19:45 Infused .Q1H1M EDUARDO Infusion Ceftriaxone Sodium 1 gm/ 50 mls @ 100 mls/hr 07/16/22 20:01 07/17/22 00:02 Sodium Chloride IV 07/16/22 20:30 Infused ONCE ONE Infusion Labetalol HCl 20 mg 07/16/22 19:20 07/16/22 19:35 Labetalol Hcl 100 Mg/20 Ml Vial IVPUSH 07/16/22 19:21 20 mg ONCE ONE Administration <BOAZ Dover - Last Filed: 07/16/22 19:02> Medications Administered Discontinued Medications Generic Name Dose Route Start Last Admin Trade Name Freq PRN Reason Stop Dose Admin Sodium Chloride 1,000 mls @ 999 mls/hr 07/16/22 18:45 07/16/22 21:36 Ns IVCONT 07/16/22 19:45 Infused .Q1H1M EDUARDO Infusion Ceftriaxone Sodium 1 gm/ 50 mls @ 100 mls/hr 07/16/22 20:01 07/17/22 00:02 Sodium Chloride IV 07/16/22 20:30 Infused ONCE ONE Infusion Labetalol HCl 20 mg 07/16/22 19:20 07/16/22 19:35 Labetalol Hcl 100 Mg/20 Ml Vial IVPUSH 07/16/22 19:21 20 mg ONCE ONE Administration <BOAZ Marinelli - Last Filed: 07/17/22 02:07> [facility] - Fall Medical Records Attestation: I reviewed the patient's medical records. <BOAZ Dover - Last Filed: 07/16/22 19:02> Lab Data Attestation: I reviewed the patient's lab results. <BOAZ Dover - Last Filed: 07/16/22 19:02> Result diagrams: : 07/16/22 18:11 07/16/22 18:11 <BOAZ Dover - Last Filed: 07/16/22 19:02> Labs: Lab Results 07/16/22 07/16/22 07/16/22 Range/Units 18:11 18:11 18:11 WBC 8.2 (4.8-10.8) X10*3/uL RBC 3.64 L (4.20-5.50) X10*6/uL Hgb 11.3 L (12.0-16.0) g/dl Hct 33.3 L (37.0-47.0) % MCV 91.5 (80.0-98.0) fL MCH 31.0 (27.0-33.0) pg MCHC 33.9 (31.0-35.0) g/dl RDW 11.8 (11.0-16.0) % Plt Count 386 D (160-400) X10*3/uL MPV 9.4 (9.4-12.3) fL Immature Gran % (Auto) 0.5 H (0.0-0.4) % Neut % (Auto) 74.8 H (45-73) % Lymph % (Auto) 16.3 L (20-40) % Potter % (Auto) 7.5 (2-11) % Eos % (Auto) 0.5 (0-4) % Baso % (Auto) 0.4 (0-2) % Lymph # (Auto) 1.3 (1.2-4.9) X10*3/uL Potter # (Auto) 0.6 (0.1-1.2) X10*3/uL Eos # (Auto) 0.0 (0.0-0.4) X10*3/uL Baso # (Auto) 0.0 (0.0-0.2) X10*3/uL Abs Immat Gran (auto) 0.04 H (0.00-0.03) X10*3/uL Absolute Neuts (auto) 6.2 (2.0-8.3) x10*3/uL Absolute Nucleated RBC 0.000 (0.0-0.012) X10*3/uL Nucleated RBC % (auto) 0.0 (0.0-0.2) /100WBC PT 11.1 (10.0-13.1) SEC INR 1.0 (0.9-1.1) Sodium 133 L (135-145) mmol/L Potassium 4.5 (3.3-5.1) mmol/L Chloride 91 L (96-108) mmol/L Carbon Dioxide 29 (22-29) mmol/L Anion Gap 18 (12-20) BUN 20 H (9-16) mg/dL Creatinine 0.91 (0.5-1.4) mg/dL Estim Creat Clear Calc 36.6 Estimated GFR 60 Random Glucose 177 H (60-115) mg/dL Lactic Acid (0.5-2.0) mmol/L Lactic Acid F/U @ 2Hr (0.5-2.0) mmol/L Calcium 10.3 H D (8.4-10.2) mg/dL Magnesium 1.6 (1.6-2.6) mg/dL Total Bilirubin 0.2 (0.0-1.0) mg/dL AST 16 (5-31) U/L ALT 14 (0-31) U/L Alkaline Phosphatase 111 D (39-117) U/L Total Creatine Kinase 32 (26-140) U/L Troponin I High Sens (<3.5-17.0) ng/L Total Protein 7.8 (6.5-8.0) g/dL Albumin 4.5 (3.5-5.0) g/dL Urine Color Urine Appearance Urine pH (5.0-9.0) Ur Specific [place] (1.005-1.025) Urine Protein (Neg-Trace) mg/dL Urine Glucose (UA) (Negative) mg/dL Urine Ketones (Negative) mg/dL Urine Blood (Negative) Urine Nitrite (Negative) Ur Leukocyte Esterase (Negative) Urine RBC (0-2) /HPF Urine WBC (0-5) /HPF Ur Squamous Epith Cells (0-2) /HPF Urine Bacteria (None Seen) Hyaline Casts (0-2) /LPF Influenza Type A (PCR) (Negative) Influenza Type B (PCR) (Negative) RSV RNA Qual (PCR) (Negative) SARS-CoV-2 RNA (RT-PCR) (Negative) 07/16/22 07/16/22 07/16/22 Range/Units 18:11 18:11 18:13 WBC (4.8-10.8) X10*3/uL RBC (4.20-5.50) X10*6/uL Hgb (12.0-16.0) g/dl Hct (37.0-47.0) % MCV (80.0-98.0) fL MCH (27.0-33.0) pg MCHC (31.0-35.0) g/dl RDW (11.0-16.0) % Plt Count (160-400) X10*3/uL MPV (9.4-12.3) fL Immature Gran % (Auto) (0.0-0.4) % Neut % (Auto) (45-73) % Lymph % (Auto) (20-40) % Potter % (Auto) (2-11) % Eos % (Auto) (0-4) % Baso % (Auto) (0-2) % Lymph # (Auto) (1.2-4.9) X10*3/uL Potter # (Auto) (0.1-1.2) X10*3/uL Eos # (Auto) (0.0-0.4) X10*3/uL Baso # (Auto) (0.0-0.2) X10*3/uL Abs Immat Gran (auto) (0.00-0.03) X10*3/uL Absolute Neuts (auto) (2.0-8.3) x10*3/uL Absolute Nucleated RBC (0.0-0.012) X10*3/uL Nucleated RBC % (auto) (0.0-0.2) /100WBC PT (10.0-13.1) SEC INR (0.9-1.1) Sodium (135-145) mmol/L Potassium (3.3-5.1) mmol/L Chloride (96-108) mmol/L Carbon Dioxide (22-29) mmol/L Anion Gap (12-20) BUN (9-16) mg/dL Creatinine (0.5-1.4) mg/dL Estim Creat Clear Calc Estimated GFR Random Glucose (60-115) mg/dL Lactic Acid 3.5 H* (0.5-2.0) mmol/L Lactic Acid F/U @ 2Hr (0.5-2.0) mmol/L Calcium (8.4-10.2) mg/dL Magnesium (1.6-2.6) mg/dL Total Bilirubin (0.0-1.0) mg/dL AST (5-31) U/L ALT (0-31) U/L Alkaline Phosphatase (39-117) U/L Total Creatine Kinase (26-140) U/L Troponin I High Sens 4.6 (<3.5-17.0) ng/L Total Protein (6.5-8.0) g/dL Albumin (3.5-5.0) g/dL Urine Color Urine Appearance Urine pH (5.0-9.0) Ur Specific [place] (1.005-1.025) Urine Protein (Neg-Trace) mg/dL Urine Glucose (UA) (Negative) mg/dL Urine Ketones (Negative) mg/dL Urine Blood (Negative) Urine Nitrite (Negative) Ur Leukocyte Esterase (Negative) Urine RBC (0-2) /HPF Urine WBC (0-5) /HPF Ur Squamous Epith Cells (0-2) /HPF Urine Bacteria (None Seen) Hyaline Casts (0-2) /LPF Influenza Type A (PCR) NEGATIVE (Negative) Influenza Type B (PCR) NEGATIVE (Negative) RSV RNA Qual (PCR) NEGATIVE (Negative) SARS-CoV-2 RNA (RT-PCR) NEGATIVE (Negative) 07/16/22 07/16/22 07/16/22 Range/Units 21:52 22:37 22:37 WBC (4.8-10.8) X10*3/uL RBC (4.20-5.50) X10*6/uL Hgb (12.0-16.0) g/dl Hct (37.0-47.0) % MCV (80.0-98.0) fL MCH (27.0-33.0) pg MCHC (31.0-35.0) g/dl RDW (11.0-16.0) % Plt Count (160-400) X10*3/uL MPV (9.4-12.3) fL Immature Gran % (Auto) (0.0-0.4) % Neut % (Auto) (45-73) % Lymph % (Auto) (20-40) % Potter % (Auto) (2-11) % Eos % (Auto) (0-4) % Baso % (Auto) (0-2) % Lymph # (Auto) (1.2-4.9) X10*3/uL Potter # (Auto) (0.1-1.2) X10*3/uL Eos # (Auto) (0.0-0.4) X10*3/uL Baso # (Auto) (0.0-0.2) X10*3/uL Abs Immat Gran (auto) (0.00-0.03) X10*3/uL Absolute Neuts (auto) (2.0-8.3) x10*3/uL Absolute Nucleated RBC (0.0-0.012) X10*3/uL Nucleated RBC % (auto) (0.0-0.2) /100WBC PT (10.0-13.1) SEC INR (0.9-1.1) Sodium (135-145) mmol/L Potassium (3.3-5.1) mmol/L Chloride (96-108) mmol/L Carbon Dioxide (22-29) mmol/L Anion Gap (12-20) BUN (9-16) mg/dL Creatinine (0.5-1.4) mg/dL Estim Creat Clear Calc Estimated GFR Random Glucose (60-115) mg/dL Lactic Acid (0.5-2.0) mmol/L Lactic Acid F/U @ 2Hr 1.7 (0.5-2.0) mmol/L Calcium (8.4-10.2) mg/dL Magnesium (1.6-2.6) mg/dL Total Bilirubin (0.0-1.0) mg/dL AST (5-31) U/L ALT (0-31) U/L Alkaline Phosphatase (39-117) U/L Total Creatine Kinase (26-140) U/L Troponin I High Sens 6.0 (<3.5-17.0) ng/L Total Protein (6.5-8.0) g/dL Albumin (3.5-5.0) g/dL Urine Color Yellow Urine Appearance Cloudy Urine pH 7.5 (5.0-9.0) Ur Specific [place] 1.010 (1.005-1.025) Urine Protein Negative (Neg-Trace) mg/dL Urine Glucose (UA) Negative (Negative) mg/dL Urine Ketones Negative (Negative) mg/dL Urine Blood Negative (Negative) Urine Nitrite Positive H (Negative) Ur Leukocyte Esterase Large (3+) H (Negative) Urine RBC 3-5 H (0-2) /HPF Urine WBC >50 H (0-5) /HPF Ur Squamous Epith Cells 6-10 (0-2) /HPF Urine Bacteria 4+ (None Seen) Hyaline Casts 0-2 (0-2) /LPF Influenza Type A (PCR) (Negative) Influenza Type B (PCR) (Negative) RSV RNA Qual (PCR) (Negative) SARS-CoV-2 RNA (RT-PCR) (Negative) <BOAZ Dover - Last Filed: 07/16/22 19:02> Lab Results 07/16/22 07/16/22 07/16/22 Range/Units 18:11 18:11 18:11 WBC 8.2 (4.8-10.8) X10*3/uL RBC 3.64 L (4.20-5.50) X10*6/uL Hgb 11.3 L (12.0-16.0) g/dl Hct 33.3 L (37.0-47.0) % MCV 91.5 (80.0-98.0) fL MCH 31.0 (27.0-33.0) pg MCHC 33.9 (31.0-35.0) g/dl RDW 11.8 (11.0-16.0) % Plt Count 386 D (160-400) X10*3/uL MPV 9.4 (9.4-12.3) fL Immature Gran % (Auto) 0.5 H (0.0-0.4) % Neut % (Auto) 74.8 H (45-73) % Lymph % (Auto) 16.3 L (20-40) % Potter % (Auto) 7.5 (2-11) % Eos % (Auto) 0.5 (0-4) % Baso % (Auto) 0.4 (0-2) % Lymph # (Auto) 1.3 (1.2-4.9) X10*3/uL Potter # (Auto) 0.6 (0.1-1.2) X10*3/uL Eos # (Auto) 0.0 (0.0-0.4) X10*3/uL Baso # (Auto) 0.0 (0.0-0.2) X10*3/uL Abs Immat Gran (auto) 0.04 H (0.00-0.03) X10*3/uL Absolute Neuts (auto) 6.2 (2.0-8.3) x10*3/uL Absolute Nucleated RBC 0.000 (0.0-0.012) X10*3/uL Nucleated RBC % (auto) 0.0 (0.0-0.2) /100WBC PT 11.1 (10.0-13.1) SEC INR 1.0 (0.9-1.1) Sodium 133 L (135-145) mmol/L Potassium 4.5 (3.3-5.1) mmol/L Chloride 91 L (96-108) mmol/L Carbon Dioxide 29 (22-29) mmol/L Anion Gap 18 (12-20) BUN 20 H (9-16) mg/dL Creatinine 0.91 (0.5-1.4) mg/dL Estim Creat Clear Calc 36.6 Estimated GFR 60 Random Glucose 177 H (60-115) mg/dL Lactic Acid (0.5-2.0) mmol/L Lactic Acid F/U @ 2Hr (0.5-2.0) mmol/L Calcium 10.3 H D (8.4-10.2) mg/dL Magnesium 1.6 (1.6-2.6) mg/dL Total Bilirubin 0.2 (0.0-1.0) mg/dL AST 16 (5-31) U/L ALT 14 (0-31) U/L Alkaline Phosphatase 111 D (39-117) U/L Total Creatine Kinase 32 (26-140) U/L Troponin I High Sens (<3.5-17.0) ng/L Total Protein 7.8 (6.5-8.0) g/dL Albumin 4.5 (3.5-5.0) g/dL Urine Color Urine Appearance Urine pH (5.0-9.0) Ur Specific [place] (1.005-1.025) Urine Protein (Neg-Trace) mg/dL Urine Glucose (UA) (Negative) mg/dL Urine Ketones (Negative) mg/dL Urine Blood (Negative) Urine Nitrite (Negative) Ur Leukocyte Esterase (Negative) Urine RBC (0-2) /HPF Urine WBC (0-5) /HPF Ur Squamous Epith Cells (0-2) /HPF Urine Bacteria (None Seen) Hyaline Casts (0-2) /LPF Influenza Type A (PCR) (Negative) Influenza Type B (PCR) (Negative) RSV RNA Qual (PCR) (Negative) SARS-CoV-2 RNA (RT-PCR) (Negative) 07/16/22 07/16/22 07/16/22 Range/Units 18:11 18:11 18:13 WBC (4.8-10.8) X10*3/uL RBC (4.20-5.50) X10*6/uL Hgb (12.0-16.0) g/dl Hct (37.0-47.0) % MCV (80.0-98.0) fL MCH (27.0-33.0) pg MCHC (31.0-35.0) g/dl RDW (11.0-16.0) % Plt Count (160-400) X10*3/uL MPV (9.4-12.3) fL Immature Gran % (Auto) (0.0-0.4) % Neut % (Auto) (45-73) % Lymph % (Auto) (20-40) % Potter % (Auto) (2-11) % Eos % (Auto) (0-4) % Baso % (Auto) (0-2) % Lymph # (Auto) (1.2-4.9) X10*3/uL Potter # (Auto) (0.1-1.2) X10*3/uL Eos # (Auto) (0.0-0.4) X10*3/uL Baso # (Auto) (0.0-0.2) X10*3/uL Abs Immat Gran (auto) (0.00-0.03) X10*3/uL Absolute Neuts (auto) (2.0-8.3) x10*3/uL Absolute Nucleated RBC (0.0-0.012) X10*3/uL Nucleated RBC % (auto) (0.0-0.2) /100WBC PT (10.0-13.1) SEC INR (0.9-1.1) Sodium (135-145) mmol/L Potassium (3.3-5.1) mmol/L Chloride (96-108) mmol/L Carbon Dioxide (22-29) mmol/L Anion Gap (12-20) BUN (9-16) mg/dL Creatinine (0.5-1.4) mg/dL Estim Creat Clear Calc Estimated GFR Random Glucose (60-115) mg/dL Lactic Acid 3.5 H* (0.5-2.0) mmol/L Lactic Acid F/U @ 2Hr (0.5-2.0) mmol/L Calcium (8.4-10.2) mg/dL Magnesium (1.6-2.6) mg/dL Total Bilirubin (0.0-1.0) mg/dL AST (5-31) U/L ALT (0-31) U/L Alkaline Phosphatase (39-117) U/L Total Creatine Kinase (26-140) U/L Troponin I High Sens 4.6 (<3.5-17.0) ng/L Total Protein (6.5-8.0) g/dL Albumin (3.5-5.0) g/dL Urine Color Urine Appearance Urine pH (5.0-9.0) Ur Specific [place] (1.005-1.025) Urine Protein (Neg-Trace) mg/dL Urine Glucose (UA) (Negative) mg/dL Urine Ketones (Negative) mg/dL Urine Blood (Negative) Urine Nitrite (Negative) Ur Leukocyte Esterase (Negative) Urine RBC (0-2) /HPF Urine WBC (0-5) /HPF Ur Squamous Epith Cells (0-2) /HPF Urine Bacteria (None Seen) Hyaline Casts (0-2) /LPF Influenza Type A (PCR) NEGATIVE (Negative) Influenza Type B (PCR) NEGATIVE (Negative) RSV RNA Qual (PCR) NEGATIVE (Negative) SARS-CoV-2 RNA (RT-PCR) NEGATIVE (Negative) 07/16/22 07/16/22 07/16/22 Range/Units 21:52 22:37 22:37 WBC (4.8-10.8) X10*3/uL RBC (4.20-5.50) X10*6/uL Hgb (12.0-16.0) g/dl Hct (37.0-47.0) % MCV (80.0-98.0) fL MCH (27.0-33.0) pg MCHC (31.0-35.0) g/dl RDW (11.0-16.0) % Plt Count (160-400) X10*3/uL MPV (9.4-12.3) fL Immature Gran % (Auto) (0.0-0.4) % Neut % (Auto) (45-73) % Lymph % (Auto) (20-40) % [place] % (Auto) (2-11) % Eos % (Auto) (0-4) % Baso % (Auto) (0-2) % Lymph # (Auto) (1.2-4.9) X10*3/uL [place] # (Auto) (0.1-1.2) X10*3/uL Eos # (Auto) (0.0-0.4) X10*3/uL Baso # (Auto) (0.0-0.2) X10*3/uL Abs Immat Gran (auto) (0.00-0.03) X10*3/uL Absolute Neuts (auto) (2.0-8.3) x10*3/uL Absolute Nucleated RBC (0.0-0.012) X10*3/uL Nucleated RBC % (auto) (0.0-0.2) /100WBC PT (10.0-13.1) SEC INR (0.9-1.1) Sodium (135-145) mmol/L Potassium (3.3-5.1) mmol/L Chloride (96-108) mmol/L Carbon Dioxide (22-29) mmol/L Anion Gap (12-20) BUN (9-16) mg/dL Creatinine (0.5-1.4) mg/dL Estim Creat Clear Calc Estimated GFR Random Glucose (60-115) mg/dL Lactic Acid (0.5-2.0) mmol/L Lactic Acid F/U @ 2Hr 1.7 (0.5-2.0) mmol/L Calcium (8.4-10.2) mg/dL Magnesium (1.6-2.6) mg/dL Total Bilirubin (0.0-1.0) mg/dL AST (5-31) U/L ALT (0-31) U/L Alkaline Phosphatase (39-117) U/L Total Creatine Kinase (26-140) U/L Troponin I High Sens 6.0 (<3.5-17.0) ng/L Total Protein (6.5-8.0) g/dL Albumin (3.5-5.0) g/dL Urine Color Yellow Urine Appearance Cloudy Urine pH 7.5 (5.0-9.0) Ur Specific [place] 1.010 (1.005-1.025) Urine Protein Negative (Neg-Trace) mg/dL Urine Glucose (UA) Negative (Negative) mg/dL Urine Ketones Negative (Negative) mg/dL Urine Blood Negative (Negative) Urine Nitrite Positive H (Negative) Ur Leukocyte Esterase Large (3+) H (Negative) Urine RBC 3-5 H (0-2) /HPF Urine WBC >50 H (0-5) /HPF Ur Squamous Epith Cells 6-10 (0-2) /HPF Urine Bacteria 4+ (None Seen) Hyaline Casts 0-2 (0-2) /LPF Influenza Type A (PCR) (Negative) Influenza Type B (PCR) (Negative) RSV RNA Qual (PCR) (Negative) SARS-CoV-2 RNA (RT-PCR) (Negative) <BOAZ Marinelli - Last Filed: 07/17/22 02:07> Imaging Data CT scan of head/cervical spine/chest and abdomen pelvis without IV contrast: Attestation: I personally reviewed and interpreted this imaging study as follows: <BOAZ Dover - Last Filed: 07/16/22 19:02> Radiologist's impression: FINDINGS: HEAD: Unchanged 1.7 cm distally calcified extra-axial lesion overlying the posterior left temporal lobe, likely meningioma. No other intra or extra-axial fluid collection, hemorrhage, or mass. No ventriculomegaly. No midline shift or herniation. Basal cisterns are patent. Maurer-white matter differentiation is maintained. No territorial encephalomalacia. Some partial ossification of the falx cerebri and extending along the tentorial leaflets noted. ?Proportional prominence of the ventricles and sulcal spaces is consistent with mild volume loss. Patchy periventricular and deep white matter hypoattenuation is consistent with mild small vessel ischemic changes. No calvarial fracture or soft tissue abnormality. Hyperostosis interna. Mucosal thickening in the ethmoid and sphenoid sinuses. Mastoid air cells normally aerated. Status post bilateral lens extractions. Severe degenerative change at the left TMJ. CERVICAL SPINE: Alignment: Patient's head/neck is held in extension. No subluxation. Vertebra: No acute fracture. No prevertebral soft tissue swelling. Degenerative disc disease: Severe cervical spondylosis at C6-C7 characterized by severe disc height loss and endplate sclerosis and abundant endplate proliferative change. Bulky anterior endplate osteophytes projecting leftward at C5-C6. Advanced multilevel facet arthrosis bilaterally. Other findings: No cervical lymphadenopathy. Visualized major salivary glands and thyroid gland are unremarkable. Visualized lung apices are clear. CT/CT head/brain wo IV con IMPRESSION: 1.? No intracranial hemorrhage, calvarial fracture, or other acute intracranial abnormality. 2.? No traumatic subluxation or acute cervical spine fracture. 3.? Unchanged 1.7 cm calcified extra-axial lesion overlying the posterior left temporal lobe, likely calcified meningioma. FINDINGS: CHEST: VASCULAR: The aorta is unremarkable; no evidence of aneurysm or periaortic hemorrhage.? The central pulmonary arteries enhance normally. AORTIC ISTHMUS: Normal. MEDIASTINUM: No mediastinal fluid or hematoma. Heart size normal. No hilar or mediastinal lymphadenopathy. LUNG: No nodules, mass, or focal consolidation. PLEURA: No pleural effusion. No pneumothorax.? No pleural mass or thickening. CHEST WALL/AXILLA: Unremarkable. ABDOMEN/PELVIS : LIVER : The liver is normal in size, shape, and attenuation. No focal hepatic lesion or biliary ductal dilatation is present.? GALLBLADDER, AND BILIARY TREE The gallbladder is unremarkable with no evidence of radiopaque gallstones, gallbladder wall thickening, or obvious pericholecystic inflammatory changes. PANCREAS: Normal; no mass or surrounding fluid.? SPLEEN: Normal size.? No focal lesion.? ADRENAL GLANDS: Normal; no mass.? KIDNEYS AND URETERS: The kidneys are normal in size, shape, and attenuation. No hydronephrosis, hydroureter, or calculi. ? URINARY BLADDER: No focal mass or wall thickening seen.? No bladder calculi.? GASTROINTESTINAL TRACT: Stomach and small bowel non-dilated.? No colonic wall thickening or pericolonic inflammatory changes.? Normal appendix. VASCULAR STRUCTURES: There is no evidence of aortic or iliac injury. The inferior vena cava is intact. ACTIVE BLEEDING: No hematomas LYMPH NODES: No lymphadenopathy. ? PELVIC VISCERA: The vagina is distended with fluid and outlining cervix. The uterus is unremarkable. An abnormal adnexal mass is not seen. FREE FLUID: None. ABDOMINAL WALL: No significant hernia is appreciated.? OSSEOUS STRUCTURES : No clavicle or scapula fracture.? No displaced rib fracture seen. No sternal fracture seen.Degenerative changes are present throughout the spine. Pars defects are seen at L4 with mild grade 1 anterolisthesis. Normal sagittal alignment of the thoracic and lumbar spine.? Vertebral body and disc heights are maintained; no compression fracture. ? No sacral, coccygeal or pelvic fracture,? The visualized hips are intact. CT/CT chest wo IV con IMPRESSION: No evidence of an acute traumatic injury in the chest abdomen or pelvis. Incidental findings described above including degenerative changes in the spine and a fluid-filled vagina. ? <BOAZ Dover Last Filed: 07/16/22 19:02> Discharge Plan Discharge Clinical Impression: Fall, UTI (urinary tract infection), Hypertension <BOAZ Dover Last Filed: 07/16/22 19:02> Patient Disposition: Home, Self-Care <BOAZ Dover Last Filed: 07/16/22 19:02> Instructions: Urinary Tract Infection in Women (ED), Hypertension (ED), Fall Prevention (ED) <BOAZ Dover Last Filed: 07/16/22 19:02> Additional Instructions: Return to the ED for any abdominal pain, fever, chills, flank pain, nausea, vomiting, abdominal pain, altered mental status, slurred speech, facial droop, paralysis of extremities, chest pain, shortness of breath, headache, or any other concerning symptoms. Please follow-up with primary care provider <BOAZ Dover Last Filed: 07/16/22 19:02> Prescriptions: New cefpodoxime 100 mg tablet 100 mg PO Q12H 7 Days Qty: 14 0RF Rx Instructions: must administer with a meal/food No Action clindamycin HCl 300 mg capsule 300 mg PO TID Qty: 21 0RF cefpodoxime 100 mg tablet 100 mg PO Q12H 7 Days Qty: 14 0RF Rx Instructions: must administer with a meal/food cefdinir 300 mg capsule 300 mg PO BID 5 Days Qty: 10 0RF <BOAZ Dover Last Filed: 07/16/22 19:02> Print Language: Burkinan <BOAZ Dover Last Filed: 07/16/22 19:02>
--- NOTE | 2022-07-16 17:35 | PC.NURSE ---
Away for imaging. Will obtain EKG & labs upon return to [facility] [place]. Provider aware of elevated BP.
[2022-07-16 18:16] LABS: MANUAL DIFF FLAG NO
[2022-07-16 18:20] LABS: Prothrombin Time 11.1 SEC (10.0-13.1)
[2022-07-16 18:25] LABS: Basophils Percent Auto 0.4 % (0-2); Eosinophils Percent Auto 0.5 % (0-4); Hematocrit 33.3 % (37.0-47.0); Hemoglobin 11.3 g/dl (12.0-16.0); Imm Gran Abs Auto 0.04 X10*3/uL (0.00-0.03); Imm Gran Pct Auto 0.5 % (0.0-0.4); Lymphocytes Absolute Auto 1.3 X10*3/uL (1.2-4.9); Lymphocytes Percent Auto 16.3 % (20-40); Mean Corpuscular HGB Conc 33.9 g/dl (31.0-35.0); Mean Corpuscular Volume 91.5 fL (80.0-98.0); Mean Platelet Volume 9.4 fL (9.4-12.3); Monocytes Absolute Auto 0.6 X10*3/uL (0.1-1.2); Monocytes Percent Auto 7.5 % (2-11); Neutrophils Absolute Auto 6.2 x10*3/uL (2.0-8.3); Neutrophils Percent Auto 74.8 % (45-73); Platelet Count 386 X10*3/uL (160-400); Red Blood Count 3.64 X10*6/uL (4.20-5.50); Red Cell Distribution Width 11.8 % (11.0-16.0); White Blood Count 8.2 X10*3/uL (4.8-10.8)
--- OUTSIDE RECORDS SUMMARY | 2022-07-16 18:31 | XMS_ITS | Encounter Summary ---
:1945 Author Care Team Providers Name Role Phone Antoine Dominguez MD Primary Care Provider [phone] Reason for Visit vomiting x 1, ?abd pain vs nauseaNausea/ Vomiting Assessment and Plan Assessment Note Overview/History: 76 year old female known to but new t o provider with a history of NIDDM, HTN, HLD, osteoporosis, seizure disorder being seen today for vomiting x 1 yesterday after lunch while at day program. After t his she has been eating and drinking at her baseline with no additional vomiting. No diarrheanauseous, no fever. States at times feels nauseous, stomach aches or . Staff is concerned as they she is wait ing for dental surgery to remove multipl e fractured teeth; complains of sore throat. Does have not have any order for Tylenol so no meds given for discomfort. Urinating at baseline without incident. No grimacing with eating, urinating, reposi tioning. COVID test yesterday and today neg (rapid) Exam: Non-toxic female, in no acute dist ress; follows commands, answers simple questions; afebrile, VS WNL; Moist mucus membranes; Multiple fractures and decayed teeth but no signs of acute infection/ab cess; very difficult to visualize pharyn x but no erythema, exudate or swelling appreciated; no cervical adenopathy; Breathsounds bilat clear; S1S2 regular; abd soft, no grimacing with palpation all quad rants, no rebound, no [place]; + BS ; tr jg pretibial edema Vital Signs: 120/70; 89; 18; 98.6; 97% DDx considered, but not limited to: -Viral gastroenteritis: considered but n ot likely as x 1; eating and drinking without incident -COVID: considered due to complaints/att ends community day program -Group A strep: considered due to compla ints of sore throat but not likely as eating and drinking without sign of pain, no significant erythem -Dental abscess: considered due to appea evelin of teeth but not present on exam Work up/Results: Group A strep and COVID PCR sent Plan/Discussion: -Pharyngitis: Ordered Tylenol 160/5ml: 15ml Q6prn pain Monitor temp BID next 3 days Strep and COVID send out Follow up with PCP 3-5 days, sooner if a ny signs of increased abd pain, fever, vomiting Proper Personal Protective Equipment (PP E), including gloves, eye protection and masks were donned and doffed appropriately and all equipment cleaned using approved technique with germicidal disposable wipes prior to and after care of this pa tient according to [facility]'s infection prevention protocols. Time On Scene with Patient: 01:15:24 1. Acute pharyngitis ? streptococcus group A, culture, throa t ? acetaminophen 160 mg/5 mL (5 mL) oral solution ? unlisted lab - covid-19 (novel prieto virus) PCR Discussion Note: None recorded.Patient educational handouts: No information available. Plan of Care Patient Instructions All the above instructions written out in staff paperwork Reminders Provider Appointments None recorded. ? ? Lab Streptococcus Group a, 05/13/2022 [facility] Reference Culture, Throat Laboratories ? Unlisted Lab 05/13/2022 [facility] Refere mte Laboratories Referral None recorded. ? ? Procedures None recorded. ? ? Surgeries None recorded. ? ? Imaging None recorded. ? ? Medications Name Start Date ? ? acetaminophen 160 mg/5 mL (5 mL) oral solution ? Take 15 mL every 6 hours by oral route as needed. alendronate 70 mg tablet ? Take 1 tablet every week by oral route. cetirizine 10 mg tablet ? Children's Acetaminophen 160 mg/5 mL oral liquid ? TAKE 15 MLS EVERY 8 HOURS BY ORAL ROUTE NEEDED FOR 14 DAYS. fluticasone propionate 50 mcg/actuation nasal spray,oliveros spension ? glimepiride 2 mg tablet ? hydrochlorothiazide 25 mg tablet ? ketoconazole 2 % shampoo ? losartan 100 mg tablet ? metformin 1,000 mg tablet ? phenytoin sodium extended 100 mg capsule ? pravastatin 40 mg tablet ? Medications Administered None recorded. Vitals Blood Pressure 120/70 mm[Hg] Results Lab Results Date Name Specimen Result Interpretation Description Value Range Status Address ? 05/13/2022 Covid-19 (Novel ? Covid-19 ? (neg) F inal [facility] Coronavirus) PCR Result Reference PCR Laboratori es: [address], [place] ? ? ? Covid-19 nasal ? Final [facility] PCR Specimen Refe rence Source Laboratori es: [address], [place] 05/13/2022 Streptococcus ? Specimen throat swab ? Final [facility] Group a, Description Ref erence Culture, Throat L aboratories: [address], [place] ? ? ? Special none ? Final [facility] Requests Referenc e Laboratori es: [address], [place] ? ? ? Culture no group A ? Final [facility] felix beta Reference hemolytic Laborat ories: streptococci [address], [place] ? ? ? Report final ? Final [facility] Status 05/16/2022 Refere nce Laboratori es: [address], [place] Allergies Code Code System Name Reaction Severity Onset Jg Inhibitors Angioedema ? ? Problems None recorded. Procedures Notes: no known surgeries Vaccine List Notes: COVID vaccinated, needs Boster Social History Tobacco Smoking Status Never Smoker Does this patient have a PCP? Y Fall Risk: In your opinion (provider), N does the home or patient potentially predispose them to an increase fall risk? What is your code status? Full Code ADL: Do you need help with daily Y activities such as bathing, preparing meals, dressing, or cleaning? Within the past 12 months, the food No you bought just didn't last and you didn't have money to get more. We know from many of our patients that No covering all of their costs can be difficult at times. This can cause stress and impact health. In the past year, have you been unable to get any of the following when it was really needed? Do you have an advanced directive? Y Do you use any illicit or recreational N drugs? Would you like help connecting to None resources? What is your level of alcohol None consumption? Fall Risk: Do you feel unsteady when Y No vinay: walks with walker standing or walking? wheelchair if long distances Social Support: Do you feel safe? Y Has lack of transportation kept you No from medical appointments, meetings, work, or from getting things needed for daily living? Within the past 12 months, you worried No that your food would run out before you got money to buy more. Do you or have you ever used any other N forms of tobacco or nicotine? Excessive Alcohol or Drug Use N Functional Status Unknown. Past Encounters 05/13/2022 Acute Pharyngitis Patricia Minaya, [employer] MACHINE: [place] [address], Ph. [phone] History of Present Illness Note: <div>76 year old female known to but new to provider with a history of NIDDM, HTN, HLD, osteoporosis, seizure disorder being seen today for vomiting x 1 yesterday after lunch while at day program. After this she has been eating and drinking at her baseline with no additional vomiting. No diarrheanauseous, no fever. States at times feels nauseous, stomach aches or . Staff is concerned as they she is waiting for dental surgery to remove multiple fractured teeth; complains of sore throat. Does have not have any order for Tylenol so no meds given for discomfort. Urinating at baseline without incident. No grimacing with eating, urinating, repositioning. COVID test yesterday and today neg (rapi d)</div> Review of Systems ? *NEW General Adult ROS - Reported By: Patient Constitutional: Constitutional no fever, no chills, normal appetite Nose and Sinuses: Nose and Sinuses no rhinorrh ea Mouth and Throat: Mouth and Throat sore throat ; ? tooth ache Cardiovascular: Cardiovascular: no chest ren n; baseline pedal edema Respiratory: Respiratory: no shortness of breath, no cough Gastrointestinal: GI: no diarrhea, no melena, vomiting; X1 Urinary: Urinary no dysuria, no frequ ency, no urgency Musculoskeletal: Musculoskeletal: no extremit y pain Neurological: Neurological no headache Physical Exam ? General Adult Exam - _Upda ted01/16 Reported By: Patient Constitutional: General Appearance: healthy- appearing, well-nourished, well-developed. Level of Dis tress: NAD. Ambulation: ; in recliner Psychiatric: Mental Status: active and al ert Eyes: Lids and Conjunctivae: non-i njected, no discharge ENMT: Ears: TMs clear. Nose: nasal passages clear, no nasal discharge. Oropharynx: moist mucous membranes, no erythema, no exudates, tonsils not enlarg ed Neck: Neck: supple. Lymph Nodes: n o cervical LAD Pulmonary: Respiratory effort: no dyspn ea. Auscultation: breath sounds normal, good air movement, n o wheezing, no rales/crackles, no rhonchi Cardiovascular System: Heart Auscultation: RRR, nor mal S1, normal S2. Pulses including femoral / pedal: n ormal throughout Gastrointestinal: Bowel Sounds: normal. Inspec tion and Palpation: soft, non-distended, no tenderness , no guarding, no rebound tenderness; no gandhi's Musculoskeletal:: Joints, Bones, and Muscles: normal movement of all extremities. Extremities: no cyanosis; trace pretibial Skin: Inspection and palpation: ; pink, warm, dry
--- OUTSIDE RECORDS SUMMARY | 2022-07-16 18:31 | XMS_ITS | Continuity of Care Document ---
:1945 Author Organization [facility] Address [address] [place] [address]- Care Team Providers Name Role Phone Antoine Dominguez III, MD Primary Care Physician Encounter [facility] [place] Date(s): 06/14/22 - 07/14/22 [facility] [address] [place] [address]- Attending Physician: Francisco Gonzalez Admitting Physician: AdmtrFrancisco Referring Physician: Admtr, Ar8 Allergies, Adverse Reactions, Alerts No Known Allergies Patient Care team information Care Team PersonnelName: Antoine Dominguez III, MD Position: [facility] Ambulatory (view) Member Role: PCP Address: Address: [address] [place] [id number]
--- OUTSIDE RECORDS SUMMARY | 2022-07-16 18:31 | XMS_ITS | Continuity of Care Document ---
:1945 Author Organization [facility] Address [address] [place] [address]- Care Team Providers Name Role Phone Antoine Dominguez III, MD Primary Care Physician [place] [facility] Date[place] 06/14/22 - 06/21/22 [facility] [address] [place] [address]- Attending Physician: Omar Umana DO Referring Physician: Antoine Dominguez III, MD Allergies, Adverse Reactions, Alerts No Known Allergies Medications hydrocortisone 1% topical cream 1 application, Topically, 2 times a day, for 14 days, apply to scalp apply in a thin film to the affected skin and rub in gently and completely, # 45 Gm, 0 Refills, Acute 06/28/22 14:42:00 EDT, 06/14/22 14:42:00 EDT, Cream, [id number], [place]... Start Date: 06/14/22 Stop Date: 06/28/22 Status: Ordered Vital Signs Most recent to oldest [Reference Range]: 1 Oxygen Saturation [94-100 %] 100 % (06/14/22 2:19 PM) Pulse Rate [55-90 bpm] 96 bpm *H* (06/14/22 2:19 PM) Blood Pressure [90-138/55-84 mm Hg] 135/56 mm Hg (06/14/22 2:19 PM) Temperature [96.8-100.4 DegF] 97.8 DegF (06/14/22 2:19 PM) Mode of Delivery (Oxygen) Room air (06/14/22 2:19 PM) Blood pressure sites Arm, left (06/14/22 2:19 PM) Temperature Route Temporal (06/14/22 2:19 PM) Weight Obtained Via Standing scale (06/14/22 2:19 PM) Dry Weight Obtained Via Standing scale (06/14/22 2:19 PM) Patient Care team information PersonnelName: Alberto CAMARENA MD, Antoine Wolf Address: Address: [address] [place] [id number]
--- OUTSIDE RECORDS SUMMARY | 2022-07-16 18:31 | XMS_ITS ---
:1945 Author Care Team Providers Name Role Phone SHREYAS AMAYA MD Primary Care Provider [phone] Allergies Code Code System Name Reaction Severity Status Onset Jg Inhibitors Angioedema ? Active ? Medications Name Status Start Date Stop Date ? ? acetaminophen 160 mg/5 mL (5 mL) oral solution Active ? Not available Take 15 mL every 6 hours by oral route as needed. alendronate 70 mg tablet Active ? Not katt ilable amoxicillin 500 mg capsule Completed ? 11/17 TAKE 1 CAPSULE BY MOUTH EVERY 8 HOURS U NTIL FINISHED NEED INSURANCE/CHECK cetirizine 10 mg tablet Active ? Not avai lable Children's Acetaminophen 160 mg/5 mL oral liquid Active ? Not available TAKE 15 MLS EVERY 8 HOURS BY ORAL ROUTE NEEDED FOR 14 DAYS. clindamycin HCl 300 mg capsule Completed ? 0 04/07/2022 diclofenac 1 % topical gel Completed ? 05/13 APPLY 2 GRAMS TO THE AFFECTED AREA(S) B Y TOPICAL ROUTE 4 TIMES PER DAY NEEDED FOR PAIN FOR 5 DAYS fluticasone propionate 50 mcg/actuation nasal Active ? Not available spray,suspension glimepiride 2 mg tablet Active ? Not avai lable hydrochlorothiazide 25 mg tablet Active ? Not available ketoconazole 2 % shampoo Active ? Not katt ilable losartan 100 mg tablet Active ? Not avail able metformin 1,000 mg tablet Active ? Not av ailable penicillin V potassium 500 mg tablet Completed ? 04/07/2022 phenytoin sodium extended 100 mg capsule Active ? Not available pravastatin 40 mg tablet Active ? Not katt ilable Problems None recorded. Procedures Date Name Performed by ? 04/07/2022 XR, Pelvis, 3 or More View [facility] ([facility] [employer]) [address] [place] [id number] (Work Place) 04/07/2022 XR, Lumbosacral Spine, 2 or 3 View [facility] ([facility] [employer]) [address] [place] [address] (Work Place) Notes: no known surgeries Results Lab Results Date Name Specimen Result Interpretation Description Value Range Status Address ? 05/13/2022 Covid-19 (Novel ? Covid-19 ? (neg) F inal [facility] Coronavirus) PCR Result Reference PCR Laboratori es: [address], [place] ? ? ? Covid-19 nasal ? Final [facility] PCR Specimen Refe rence Source Laboratori es: [address], [place] 05/13/2022 Streptococcus ? Specimen throat swab ? Final [facility] Group a, Description Ref erence Culture, Throat L aboratories: [address], [place] ? ? ? Special none ? Final [facility] Requests Referenc e Laboratori es: [address], [place] ? ? ? Culture no group A ? Final [facility] felix beta Reference hemolytic Laborat ories: streptococci [address], [place] ? ? ? Report final ? Final [facility] Status 05/16/2022 Refere nce Laboratori es: [address], [place] Past Encounters 05/13/2022 Acute Pharyngitis Patricia Minaya [employer]ER SUPERVISOR: [address] [place] [address], Ph. 04/07/2022 Low Back Strain; Low Back Pain; Osteopor osis Lisha Horne PA: [address] [place] [address], Ph. 11/17/2021 Toothache Nita Bernardo PA: [address] [place] [address], Ph. [phone] Social History Tobacco Smoking Status Never Smoker Vaccine List Notes: COVID vaccinated, needs Prakasher Plan of Care Patient Instructions All the above instructions written out in staff paperwork start diclofenac gel and tylenol for pa in as directed will obtain xray of lumbar spine and pel vis to evaluation further for fracture rest if xray is without evidence of fracture contact primary care for physical therapy referral follow up if worse or if additional symp toms or if not improving in 5-7 days Reminders Provider Appointments None recorded. ? ? Lab None recorded. ? ? Referral None recorded. ? ? Procedures None recorded. ? ? Surgeries None recorded. ? ? Imaging None recorded. ? ? Vitals 05/13/2022 04:03PM D06 Established Patient Blood Pressure 120/70 mm[Hg] 04/07/2022 11:50AM D06 New Patient Blood Pressure 144/68 mm[Hg] 11/17/2021 11:36AM D06 New Patient Blood Pressure 144/76 mm[Hg]
--- OUTSIDE RECORDS SUMMARY | 2022-07-16 18:31 | XMS_ITS | Continuity of Care Document ---
:1945 Author Organization [facility] Address [address] [place] [id number]- Care Team Providers Name Role Phone Alberto CAMARENA MD, Antoine Wolf Primary Care Physician [place] [facility] [place]15[place] - 08/14/[address] [address]- Attending Physician: Francisco Gonzalez Admitting Physician: Francisco Gonzalez Referring Physician: Francisco Gonzalez
--- OUTSIDE RECORDS SUMMARY | 2022-07-16 18:31 | XMS_ITS | Continuity of Care Document ---
:1945 Author Organization [facility] Address [address] [place] [address]- Care Team Providers Name Role Phone Alberto CAMARENA MD, Antoine Wolf Primary Care Physician Encounter [facility] [place] Date(s): 07/09/21 - 08/14/[address] [address]- Attending Physician: Antoine Dominguez III, MD Admitting Physician: Antoine Dominguez III, MD Referring Physician: Antoine Dominguez III, MD
[2022-07-16 18:33] LABS: Alanine Aminotransferase 14 U/L (0-31); Albumin Level 4.5 g/dL (3.5-5.0); Alkaline Phosphatase 111 U/L (39-117); Anion Gap 18 (12-20); Aspartate Amino Transferase 16 U/L (5-31); Bilirubin Total 0.2 mg/dL (0.0-1.0); Blood Urea Nitrogen 20 mg/dL (9-16); Calcium 10.3 mg/dL (8.4-10.2); Carbon Dioxide 29 mmol/L (22-29); Chloride 91 mmol/L (96-108); Creatinine Clr Calc Pharmacy 36.6; Estimated Glomerular Filt Rate 60; Glucose Random 177 mg/dL (60-115); Lactic Acid 3.5 mmol/L (0.5-2.0); Magnesium 1.6 mg/dL (1.6-2.6); Potassium 4.5 mmol/L (3.3-5.1); Sodium 133 mmol/L (135-145); Total Protein 7.8 g/dL (6.5-8.0)
[2022-07-16 18:39] LABS: Troponin-I High Sensitivity 4.6 ng/L (<3.5-17.0)
[2022-07-16 19:13] LABS: Influenza A PCR NEGATIVE (Negative); Influenza B PCR NEGATIVE (Negative); Resp Syncy Virus RNA Qual PCR NEGATIVE (Negative); SARS COV2 PCR INHOUSE NEGATIVE (Negative)
[2022-07-16] MEDS: Labetalol HCL 100 MG/20 ML VIAL 20 MG IVPUSH (19:35)
[2022-07-16] MEDS: 0.9 % Sodium Chloride 1,000 ML 999 ML IVCONT (19:35)
[2022-07-16 20:14] LABS: Reflex Lactate? Lactic Acid Added
--- NOTE | 2022-07-16 20:29 | PC.NURSE ---
lactic was due at 2014 but iv fluids were not finished. I spoke with both the provider and the nurse. per provider no lactic until two bags of fluids are done . RN aware
--- NOTE | 2022-07-16 21:03 | PC.NURSE ---
Instructed by provider (BOAZ Jolley) to hold drawing repeat lactic acid level until Normal Saline completely infuses. IV running slowly. Pressure bag applied.
[2022-07-16] MEDS: cefTRIAXone sodium 1 GM in 0.9 % Sodium Chloride 50 ML IV (21:36)
--- NOTE | 2022-07-16 22:02 | PC.NURSE ---
Bladder scan: 261ml. Straight catheter inserted and drained 260ml of pale yellow/clear urine. Urine specimen collected & sent to lab for analysis. Awaiting results. Pt tolerated procedure well. Normal saline has infused, antibiotics infusing as ordered. IV access in left wrist patent & functioning well. custodial staff member (Maddy) at bedside.
[2022-07-16 22:10] LABS: Appearance Urine Cloudy; Color Urine Yellow; Glucose Urine UA Negative (Negative); Leukocyte Esterase Urine Large (3+) (Negative); Nitrite Urine Positive (Negative); PH 7.5 (5.0-9.0); UMIC TRIGGER UACC YES; Urine Blood Negative (Negative); Urine Ketones Negative (Negative); Urine Protein Negative (Neg-Trace)
[2022-07-16 22:36] LABS: Bacteria Urine 4+ (None Seen); Hyaline Casts Urine 0-2 /LPF (0-2); UACC Culture Trigger YES; WBC Urine >50 /HPF (0-5)
[2022-07-16 22:54] LABS: ~Lactic Acid-LAB USE ONLY 1.7 mmol/L (0.5-2.0)
[2022-07-17] VITALS: BP 141/56; PULSE 81; RESP 10; TEMP 36.5; O2SAT 97
[2022-07-17 02:40] VITALS: BP 121/64; PULSE 69; RESP 16; TEMP 36.7; O2SAT 95
== END 2022-07-17 02:44 | disposition home or self-care (01) ==
PROVIDERS: Physician Assistant; Physician Assistant Medical; Emergency Provider Emergency Medicine Emergency Medical Services; PCP Internal Medicine
DX: I10 Essential (primary) hypertension (principal); N39.0 Urinary tract infection, site not specified; B96.20 Unspecified Escherichia coli [E. coli] as the cause of diseases classified elsewhere; R53.1 Weakness; R19.7 Diarrhea, unspecified; Z20.822 Contact with and (suspected) exposure to COVID-19; Z91.81 History of falling; E11.9 Type 2 diabetes mellitus without complications; E78.5 Hyperlipidemia, unspecified
CPT/HCPCS: 0241U; 36415; 51701; 51798; 70450; 71250; 72125; 74176; 80053; 81001; 81003; 82550; 83605; 83735; 84484; 85025; 85610; 87040; 87086; 87088; 87186; 93005; 96361; 96365; 96366; 96375; 99285; J0696

== ENCOUNTER 2022-08-30 13:04 | Emergency (ER) | payer MEDICARE, MEDICAID, SELFPAY ==
--- NOTE | ~2022-08-30 | XR_ITS ---
EXAMINATION: XR chest 2V CLINICAL INFORMATION: Reason for Exam cough / SOB COMPARISON: 2019 TECHNIQUE: XR chest 2V Lungs and Bethanie: Both lungs are clear. Pleura: Normal. Costophrenic angles are sharp. No pneumothorax. Heart: The heart is normal in size. Mediastinum: The mediastinum is within normal limits.. Bones: Skeletal structures included are normal for patient's age. XR/XR chest 2V IMPRESSION: No radiographic evidence of acute infiltrates or failure.
--- NOTE | 2022-08-30 13:10 | ED.GENADULT ---
HPI - General Adult General Chief complaint: Upper Respiratory Symptoms <BOAZ Renee - Last Filed: 08/30/22 13:12> Stated complaint: respiratory issues <BOAZ Renee - Last Filed: 08/30/22 13:12> Time Seen by Provider: 08/30/22 15:39 <BOAZ Renee - Last Filed: 08/30/22 13:12> Source: patient <BOAZ Renee - Last Filed: 08/30/22 13:12> Mode of arrival: wheelchair <BOAZ Renee - Last Filed: 08/30/22 13:12> Limitations: no limitations <BOAZ Renee - Last Filed: 08/30/22 13:12> language barrier (Turkmen-speaking/non verbal at baseline ) <BOAZ Dover - Last Filed: 08/30/22 17:41> History of Present Illness HPI narrative: 76yoF who is nonverbal at baseline currently residing at detention c PMHx of non-insulin dependent diabetes, HTN, HLD, seizure disorder who is presenting to the ED c spiral gear generator at bedside from detention after the detention noticed over the past 2-3 days that she has had decreased appetite generalized fatigue/malaise, nasal congestion/rhinorrhea with a productive cough therefore they sent her here for further evaluation treatment. They deny any measured fevers. They report that she has not fallen. They deny any recent travel or sick contacts that they are aware of. <BOAZ Dover - Last Filed: 08/30/22 17:41> MD complaint: URI symptoms <BOAZ Dover - Last Filed: 08/30/22 17:41> Onset (ago): day(s) (For the past few days worse today) <BOAZ Dover - Last Filed: 08/30/22 17:41> Related Data Home medications: Previous Rx's Medication Instructions Recorded clindamycin HCl 300 mg capsule 300 mg PO TID #21 caps 08/12/21 cefpodoxime 100 mg tablet 100 mg PO Q12H 7 days #14 tabs 02/04/22 cefdinir 300 mg capsule 300 mg PO BID 5 days #10 caps 03/14/22 cefpodoxime 100 mg tablet 100 mg PO Q12H 7 days #14 tabs 07/17/22 oseltamivir 75 mg capsule (Tamiflu) 75 mg PO BID 5 days #10 caps 08/30/22 <BOAZ Renee - Last Filed: 08/30/22 13:12> Allergies/adverse reactions: Allergies Allergy/AdvReac Type Severity Reaction Status Date / Time JULIET Inhibitors Allergy Unknown UNKNOWN Verified 08/30/22 13:09 [JULIET INHIBITORS] <BOAZ Renee - Last Filed: 08/30/22 13:12> Review of Systems Review of Systems: Constitutional : + chills/fatigue/malaise, No Weight loss, No Fever ENT/Mouth : No Hearing loss, No Ear Pain, + Nasal Congestion, No Sinus Pain, No Hoarseness, No sore throat, + Rhinorrhea, No Swallowing Difficulty Eyes: No Eye Pain, No Swelling, No Redness, No Foreign Body, No Discharge, No Vision Changes Cardiovascular : No Chest Pain, No SOB, No Dyspnea on Exertion, No Orthopnea, No Edema, No Palpitations Respiratory : + Cough, + Sputum, No Wheezing, No Smoke Exposure, No Dyspnea Gastrointestinal : No Nausea, No Vomiting, No Diarrhea, No Constipation, No abdominal Pain, No Hematochezia, No Melena Genitourinary : no irregular bleeding, No Dysuria, No Urinary Frequency, No Hematuria, No Urinary Incontinence, No Urgency, No Flank Pain, No Urinary Flow Changes, No Hesitancy Musculoskeletal : No joint pain, + Myalgias, No Joint Swelling Skin : No Skin Lesions, No rash Neuro : No Weakness, No Numbness, No Paresthesias, No Loss of Consciousness, No Dizziness, No Headache Psych : No Anxiety/Panic, No Depression, No SI/HI/AH/VH, No Social Issues, Heme/Lymph: No Bruising, No Bleeding,No Lymphadenopathy Endocrine : No Polyuria, No Polydipsia, No Temperature Intolerance <BOAZ Dover - Last Filed: 08/30/22 17:41> Yes all other systems are reviewed and are negative <BOAZ Dover - Last Filed: 08/30/22 17:41> [facility] Past Medical History Attestation statement: The following information was validated with the patient. <BOAZ Dover - Last Filed: 08/30/22 17:41> Source: old records reviewed, nursing notes reviewed and other (from caregiver at detention ) <BOAZ Dover - Last Filed: 08/30/22 17:41> Medical History: Medical History COVID-19 Diabetes Hyperlipidemia Hypertension Intellectual disability Osteoporosis Seizures Swallowing difficulty <BOAZ Renee - Last Filed: 08/30/22 13:12> Social History Social History: Social History Advance Directives: Yes Advance Directives Information Provided: Yes Advance Directives on File: No <BOAZ Renee - Last Filed: 08/30/22 13:12> Physical Exam ED Vital Signs: Vital Signs - 24 hr 08/30/22 13:11 Temperature 97.9 F Pulse Rate 99 Respiratory Rate 16 Blood Pressure 148/88 H Pulse Oximetry 98 Oxygen Delivery Method Room Air BMI result Body Mass Index 22.2 <BOAZ Renee - Last Filed: 08/30/22 13:12> Vital Signs - 24 hr 08/30/22 13:11 Temperature 97.9 F Pulse Rate 99 Respiratory Rate 16 Blood Pressure 148/88 H Pulse Oximetry 98 Oxygen Delivery Method Room Air BMI result Body Mass Index 22.2 vital signs have been reviewed as normal and appeared to be correct. Blood pressure normal. Heart rate normal. Respiration rate normal. Temperature normal. Oxygen saturation normal. <BOAZ Dover - Last Filed: 08/30/22 17:41> Appearance: Alert. Nonverbal at baseline per detention staff member. No signs of trauma. No acute distress. Head: Normal external exam. Normocephalic. Atraumatic. Eyes: PERRLA. EOMI. Conjunctiva and sclera normal. Eyelids normal. ENT: EAC normal. TM's Normal. Pharynx normal. Uvula midline. Moist mucous membranes. No lesions/ulcerations or masses noted on the tongue. Normal voice. No trismus noted. No drooling noted. No muffled voice noted. Neck: Normal inspection. Neck supple. FROM. No adenopathy. Thyroid Normal. No tracheal deviation noted. No crepitus is noted. No meningeal signs. No neck mass noted. No signs of trauma noted. CVS: Normal heart rate and rhythm. Heart sound normal. Pulses normal throughout. No murmurs/rales/gallops. Respiratory: No respiratory distress. Painless inspiration. Breath sounds normal. No wheezes/rales/rhonchi noted. Chest nontender. No crepitus is noted. No signs of trauma noted. No accessory muscle usage noted or decreased air movement noted. No signs of trauma. Abdomen: Soft and nontender. Bowel sounds normal in all 4 quadrants. No distention noted. No organomegaly noted. No visible injury noted. Back: No CVA tenderness. Full range of motion noted. Nontender. No signs of trauma. Patient neuro intact bilaterally and distally on all 4 extremities. Patient's reflexes intact bilaterally and distally on all 4 extremities. No rashes/lesion/induration/fluctuance or signs of infection noted. Skin: Skin warm and dry. Normal skin color. Normal skin turgor. No rashes/lesions/lacerations noted. Extremities: No lower extremity edema. No calf tenderness is noted. Extremities exhibit normal range of motion and nontender. Neuro: Oriented X 3. No motor deficit. No sensory deficit. Reflexes normal. No focal neuro deficits noted. CN's II-XII intact bilaterally? Vascular: + radial pulses. Normal cap refill. No cyanosis noted to upper extremity nails. <BOAZ Dover - Last Filed: 08/30/22 17:41> Course Course Course Narrative: RME performed by Ashanti Aggarwal PA-C. Patient is a 76 year old female presenting to the emergency department with a cough. Patient lives in a detention and is here with staff. Staff states that someone else in the house has bronchitis. Labs, imaging, and COVID/Influenza/RSV ordered. Patient placed back in the waiting room pending results and room availability. <BOAZ Renee - Last Filed: 08/30/22 13:12> Reevaluation(s) Reevaluation #1: 76yoF who is nonverbal at baseline currently residing at detention c PMHx of non-insulin dependent diabetes, HTN, HLD, seizure disorder who is presenting to the ED c spiral gear generator at bedside from detention after the detention noticed over the past 2-3 days that she has had decreased appetite generalized fatigue/malaise, nasal congestion/rhinorrhea with a productive cough therefore they sent her here for further evaluation treatment. They deny any measured fevers. They report that she has not fallen. They deny any recent travel or sick contacts that they are aware of. Patient's blood sugar was 57 therefore we gave her p.o. fluids and a sandwich and she ate that and drink the fluids. Otherwise labs are reviewed patient mild baseline anemia which is similar compared to prior. Chronic hyponatremia at 01:31 this is similar compared to prior. Chloride 95. BUN 17. Otherwise all other labs are within normal limits. Patient is positive for influenza negative for COVID/RSV/strep. Patient's chest x-ray within normal limits no acute processes noted I noticed that the patient has had UTIs in the past although detention staff member reports that she has not been complaining of urinary symptoms she has not fallen otherwise she is at her baseline. I did perform a bladder scan and she had 0 mL in her urine although she did use the bathroom approximately once or twice and we are unable to get the urine due to patient had some loose stools. Therefore at this time patient most likely only influenza A. Will DC home with Tamiflu and instructions return if any new or worsening symptoms to follow up with primary care provider. Patient with staff member at bedside understand agree this plan. <BOAZ Dovre - Last Filed: 08/30/22 17:41> Time: 17:39 <BOAZ Dover - Last Filed: 08/30/22 17:41> Medical Decision Making Lab Data MDM Lab Attestation statement: I reviewed the patient's lab results. <BOAZ Dover - Last Filed: 08/30/22 17:41> Result Diagrams: 08/30/22 14:26 08/30/22 14:26 <BOAZ Renee - Last Filed: 08/30/22 13:12> Labs: Lab Results 08/30/22 08/30/22 08/30/22 Range/Units 14:26 14:26 14:26 WBC 5.9 (4.8-10.8) X10*3/uL RBC 3.71 L (4.20-5.50) X10*6/uL Hgb 11.4 L (12.0-16.0) g/dl Hct 34.2 L (37.0-47.0) % MCV 92.2 (80.0-98.0) fL MCH 30.7 (27.0-33.0) pg MCHC 33.3 (31.0-35.0) g/dl RDW 12.1 (11.0-16.0) % Plt Count 281 D (160-400) X10*3/uL MPV 9.5 (9.4-12.3) fL Immature Gran % (Auto) 0.2 (0.0-0.4) % Neut % (Auto) 59.1 (45-73) % Lymph % (Auto) 25.2 (20-40) % Andrews % (Auto) 13.3 H (2-11) % Eos % (Auto) 1.7 (0-4) % Baso % (Auto) 0.5 (0-2) % Lymph # (Auto) 1.5 (1.2-4.9) X10*3/uL Andrews # (Auto) 0.8 (0.1-1.2) X10*3/uL Eos # (Auto) 0.1 (0.0-0.4) X10*3/uL Baso # (Auto) 0.0 (0.0-0.2) X10*3/uL Abs Immat Gran (auto) 0.01 (0.00-0.03) X10*3/uL Absolute Neuts (auto) 3.5 (2.0-8.3) x10*3/uL Absolute Nucleated RBC 0.000 (0.0-0.012) X10*3/uL Nucleated RBC % (auto) 0.0 (0.0-0.2) /100WBC Sodium 131 L (135-145) mmol/L Potassium 4.1 (3.3-5.1) mmol/L Chloride 95 L (96-108) mmol/L Carbon Dioxide 25 (22-29) mmol/L Anion Gap 15 (12-20) BUN 17 H (9-16) mg/dL Creatinine 0.79 (0.5-1.4) mg/dL Estim Creat Clear Calc 42.1 Estimated GFR > 60 POC Glucose (60-115) mg/dL Random Glucose 57 L* (60-115) mg/dL Calcium 9.7 (8.4-10.2) mg/dL Magnesium 1.6 (1.6-2.6) mg/dL Total Bilirubin 0.3 (0.0-1.0) mg/dL AST 22 (5-31) U/L ALT 18 (0-31) U/L Alkaline Phosphatase 98 (39-117) U/L Total Protein 7.3 (6.5-8.0) g/dL Albumin 4.2 (3.5-5.0) g/dL Influenza Type A (PCR) (Negative) Influenza Type B (PCR) (Negative) RSV RNA Qual (PCR) (Negative) SARS-CoV-2 RNA (RT-PCR) (Negative) S. pyogenes GrpA REESE Negative (Negative) 08/30/22 08/30/22 Range/Units 14:26 17:45 WBC (4.8-10.8) X10*3/uL RBC (4.20-5.50) X10*6/uL Hgb (12.0-16.0) g/dl Hct (37.0-47.0) % MCV (80.0-98.0) fL MCH (27.0-33.0) pg MCHC (31.0-35.0) g/dl RDW (11.0-16.0) % Plt Count (160-400) X10*3/uL MPV (9.4-12.3) fL Immature Gran % (Auto) (0.0-0.4) % Neut % (Auto) (45-73) % Lymph % (Auto) (20-40) % Andrews % (Auto) (2-11) % Eos % (Auto) (0-4) % Baso % (Auto) (0-2) % Lymph # (Auto) (1.2-4.9) X10*3/uL Andrews # (Auto) (0.1-1.2) X10*3/uL Eos # (Auto) (0.0-0.4) X10*3/uL Baso # (Auto) (0.0-0.2) X10*3/uL Abs Immat Gran (auto) (0.00-0.03) X10*3/uL Absolute Neuts (auto) (2.0-8.3) x10*3/uL Absolute Nucleated RBC (0.0-0.012) X10*3/uL Nucleated RBC % (auto) (0.0-0.2) /100WBC Sodium (135-145) mmol/L Potassium (3.3-5.1) mmol/L Chloride (96-108) mmol/L Carbon Dioxide (22-29) mmol/L Anion Gap (12-20) BUN (9-16) mg/dL Creatinine (0.5-1.4) mg/dL Estim Creat Clear Calc Estimated GFR POC Glucose 256 H (60-115) mg/dL Random Glucose (60-115) mg/dL Calcium (8.4-10.2) mg/dL Magnesium (1.6-2.6) mg/dL Total Bilirubin (0.0-1.0) mg/dL AST (5-31) U/L ALT (0-31) U/L Alkaline Phosphatase (39-117) U/L Total Protein (6.5-8.0) g/dL Albumin (3.5-5.0) g/dL Influenza Type A (PCR) POSITIVE A (Negative) Influenza Type B (PCR) NEGATIVE (Negative) RSV RNA Qual (PCR) NEGATIVE (Negative) SARS-CoV-2 RNA (RT-PCR) NEGATIVE (Negative) S. pyogenes GrpA REESE (Negative) <BOAZ Renee - Last Filed: 08/30/22 13:12> Lab Results 08/30/22 08/30/22 08/30/22 Range/Units 14:26 14:26 14:26 WBC 5.9 (4.8-10.8) X10*3/uL RBC 3.71 L (4.20-5.50) X10*6/uL Hgb 11.4 L (12.0-16.0) g/dl Hct 34.2 L (37.0-47.0) % MCV 92.2 (80.0-98.0) fL MCH 30.7 (27.0-33.0) pg MCHC 33.3 (31.0-35.0) g/dl RDW 12.1 (11.0-16.0) % Plt Count 281 D (160-400) X10*3/uL MPV 9.5 (9.4-12.3) fL Immature Gran % (Auto) 0.2 (0.0-0.4) % Neut % (Auto) 59.1 (45-73) % Lymph % (Auto) 25.2 (20-40) % Andrews % (Auto) 13.3 H (2-11) % Eos % (Auto) 1.7 (0-4) % Baso % (Auto) 0.5 (0-2) % Lymph # (Auto) 1.5 (1.2-4.9) X10*3/uL Andrews # (Auto) 0.8 (0.1-1.2) X10*3/uL Eos # (Auto) 0.1 (0.0-0.4) X10*3/uL Baso # (Auto) 0.0 (0.0-0.2) X10*3/uL Abs Immat Gran (auto) 0.01 (0.00-0.03) X10*3/uL Absolute Neuts (auto) 3.5 (2.0-8.3) x10*3/uL Absolute Nucleated RBC 0.000 (0.0-0.012) X10*3/uL Nucleated RBC % (auto) 0.0 (0.0-0.2) /100WBC Sodium 131 L (135-145) mmol/L Potassium 4.1 (3.3-5.1) mmol/L Chloride 95 L (96-108) mmol/L Carbon Dioxide 25 (22-29) mmol/L Anion Gap 15 (12-20) BUN 17 H (9-16) mg/dL Creatinine 0.79 (0.5-1.4) mg/dL Estim Creat Clear Calc 42.1 Estimated GFR > 60 POC Glucose (60-115) mg/dL Random Glucose 57 L* (60-115) mg/dL Calcium 9.7 (8.4-10.2) mg/dL Magnesium 1.6 (1.6-2.6) mg/dL Total Bilirubin 0.3 (0.0-1.0) mg/dL AST 22 (5-31) U/L ALT 18 (0-31) U/L Alkaline Phosphatase 98 (39-117) U/L Total Protein 7.3 (6.5-8.0) g/dL Albumin 4.2 (3.5-5.0) g/dL Influenza Type A (PCR) (Negative) Influenza Type B (PCR) (Negative) RSV RNA Qual (PCR) (Negative) SARS-CoV-2 RNA (RT-PCR) (Negative) S. pyogenes GrpA REESE Negative (Negative) 08/30/22 08/30/22 Range/Units 14:26 17:45 WBC (4.8-10.8) X10*3/uL RBC (4.20-5.50) X10*6/uL Hgb (12.0-16.0) g/dl Hct (37.0-47.0) % MCV (80.0-98.0) fL MCH (27.0-33.0) pg MCHC (31.0-35.0) g/dl RDW (11.0-16.0) % Plt Count (160-400) X10*3/uL MPV (9.4-12.3) fL Immature Gran % (Auto) (0.0-0.4) % Neut % (Auto) (45-73) % Lymph % (Auto) (20-40) % Andrews % (Auto) (2-11) % Eos % (Auto) (0-4) % Baso % (Auto) (0-2) % Lymph # (Auto) (1.2-4.9) X10*3/uL Andrews # (Auto) (0.1-1.2) X10*3/uL Eos # (Auto) (0.0-0.4) X10*3/uL Baso # (Auto) (0.0-0.2) X10*3/uL Abs Immat Gran (auto) (0.00-0.03) X10*3/uL Absolute Neuts (auto) (2.0-8.3) x10*3/uL Absolute Nucleated RBC (0.0-0.012) X10*3/uL Nucleated RBC % (auto) (0.0-0.2) /100WBC Sodium (135-145) mmol/L Potassium (3.3-5.1) mmol/L Chloride (96-108) mmol/L Carbon Dioxide (22-29) mmol/L Anion Gap (12-20) BUN (9-16) mg/dL Creatinine (0.5-1.4) mg/dL Estim Creat Clear Calc Estimated GFR POC Glucose 256 H (60-115) mg/dL Random Glucose (60-115) mg/dL Calcium (8.4-10.2) mg/dL Magnesium (1.6-2.6) mg/dL Total Bilirubin (0.0-1.0) mg/dL AST (5-31) U/L ALT (0-31) U/L Alkaline Phosphatase (39-117) U/L Total Protein (6.5-8.0) g/dL Albumin (3.5-5.0) g/dL Influenza Type A (PCR) POSITIVE A (Negative) Influenza Type B (PCR) NEGATIVE (Negative) RSV RNA Qual (PCR) NEGATIVE (Negative) SARS-CoV-2 RNA (RT-PCR) NEGATIVE (Negative) S. pyogenes GrpA REESE (Negative) <BOAZ Dover - Last Filed: 08/30/22 17:41> Independent Interpretation Interpretation: Chest x-ray TECHNIQUE: XR chest 2V Lungs and Bethanie: Both lungs are clear. Pleura: Normal. Costophrenic angles are sharp. No pneumothorax. Heart: The heart is normal in size. Mediastinum: The mediastinum is within normal limits.. Bones: Skeletal structures included are normal for patient's age. XR/XR chest 2V IMPRESSION: No radiographic evidence of acute infiltrates or failure. <BOAZ Dover - Last Filed: 08/30/22 17:41> Radiology Impression Discussion of test interpretation with radiology: I have reviewed the radiologist's reading. <BOAZ Dover - Last Filed: 08/30/22 17:41> Independent Historian Clinical information obtained from an independent historian. History obtained from or confirmed by: Other ([facility] staff member) <BOAZ Dover - Last Filed: 08/30/22 17:41> External Record Review External record reviewed: Inpatient record, Office record, Outpatient record, Prior outpatient labs, Prior outpatient radiology, Primary care record and Outside ED record <BOAZ Dover Last Filed: 08/30/22 17:41> Prescription Management I considered prescription management with: Antibiotic <BOAZ Dover Last Filed: 08/30/22 17:41> Discharge Plan Discharge Clinical Impression: Influenza A <BOAZ Renee - Last Filed: 08/30/22 13:12> Patient Disposition: Home, Self-Care <BOAZ Renee - Last Filed: 08/30/22 13:12> Instructions: Influenza (ED) <BOAZ Renee - Last Filed: 08/30/22 13:12> Prescriptions: New oseltamivir [Tamiflu] 75 mg capsule 75 mg PO BID 5 Days Qty: 10 0RF No Action clindamycin HCl 300 mg capsule 300 mg PO TID Qty: 21 0RF cefpodoxime 100 mg tablet 100 mg PO Q12H 7 Days Qty: 14 0RF Rx Instructions: must administer with a meal/food cefdinir 300 mg capsule 300 mg PO BID 5 Days Qty: 10 0RF cefpodoxime 100 mg tablet 100 mg PO Q12H 7 Days Qty: 14 0RF Rx Instructions: must administer with a meal/food <BOAZ Renee - Last Filed: 08/30/22 13:12> Referrals: Antoine Dominguez III, MD [Primary Care Provider] - 5 days <BOAZ Renee - Last Filed: 08/30/22 13:12> Interventions: ED Discharge Assessment Last Done: 08/30/22 17:58 <BOAZ Renee - Last Filed: 08/30/22 13:12> Discharge Date/Time: 08/30/22 17:59 <BOAZ Renee - Last Filed: 08/30/22 13:12>
[2022-08-30 13:11] VITALS: BP 148/88; PULSE 99; RESP 16; TEMP 36.6; O2SAT 98; BMI 22.2
[2022-08-30 14:36] LABS: MANUAL DIFF FLAG NO
[2022-08-30 14:37] LABS: Basophils Percent Auto 0.5 % (0-2); Eosinophils Absolute Auto 0.1 X10*3/uL (0.0-0.4); Eosinophils Percent Auto 1.7 % (0-4); Hematocrit 34.2 % (37.0-47.0); Hemoglobin 11.4 g/dl (12.0-16.0); Imm Gran Abs Auto 0.01 X10*3/uL (0.00-0.03); Imm Gran Pct Auto 0.2 % (0.0-0.4); Lymphocytes Absolute Auto 1.5 X10*3/uL (1.2-4.9); Lymphocytes Percent Auto 25.2 % (20-40); Mean Corpuscular HGB Conc 33.3 g/dl (31.0-35.0); Mean Corpuscular Hemoglobin 30.7 pg (27.0-33.0); Mean Corpuscular Volume 92.2 fL (80.0-98.0); Mean Platelet Volume 9.5 fL (9.4-12.3); Monocytes Absolute Auto 0.8 X10*3/uL (0.1-1.2); Monocytes Percent Auto 13.3 % (2-11); Neutrophils Absolute Auto 3.5 x10*3/uL (2.0-8.3); Neutrophils Percent Auto 59.1 % (45-73); Platelet Count 281 X10*3/uL (160-400); Red Blood Count 3.71 X10*6/uL (4.20-5.50); Red Cell Distribution Width 12.1 % (11.0-16.0); White Blood Count 5.9 X10*3/uL (4.8-10.8)
[2022-08-30 15:00] LABS: IDNOW Serial# 08D9AD1C; Strep A Nucleic Acid Negative (Negative)
[2022-08-30 15:15] LABS: Influenza A PCR POSITIVE (Negative); Influenza B PCR NEGATIVE (Negative); Resp Syncy Virus RNA Qual PCR NEGATIVE (Negative); SARS COV2 PCR INHOUSE NEGATIVE (Negative)
[2022-08-30 15:26] LABS: Alanine Aminotransferase 18 U/L (0-31); Albumin Level 4.2 g/dL (3.5-5.0); Alkaline Phosphatase 98 U/L (39-117); Anion Gap 15 (12-20); Aspartate Amino Transferase 22 U/L (5-31); Bilirubin Total 0.3 mg/dL (0.0-1.0); Blood Urea Nitrogen 17 mg/dL (9-16); Calcium 9.7 mg/dL (8.4-10.2); Carbon Dioxide 25 mmol/L (22-29); Chloride 95 mmol/L (96-108); Creatinine Clr Calc Pharmacy 42.1; Estimated Glomerular Filt Rate > 60; Glucose Random 57 mg/dL (60-115); Magnesium 1.6 mg/dL (1.6-2.6); Potassium 4.1 mmol/L (3.3-5.1); Sodium 131 mmol/L (135-145); Total Protein 7.3 g/dL (6.5-8.0)
--- NOTE | 2022-08-30 15:39 | PC.NURSE ---
pt POC 57, pt alert and at baseline- pt given orange juice and florentin crackers- eating without difficulty
[2022-08-30 17:49] LABS: Glucose, Whole Blood 256 mg/dL (60-115)
== END 2022-08-30 17:59 | disposition home or self-care (01) ==
PROVIDERS: Physician Assistant Medical; Emergency Provider Emergency Medicine; PCP Internal Medicine
DX: J11.1 Influenza due to unidentified influenza virus with other respiratory manifestations (principal); E11.9 Type 2 diabetes mellitus without complications; I10 Essential (primary) hypertension; E78.5 Hyperlipidemia, unspecified; Z20.822 Contact with and (suspected) exposure to COVID-19; F79 Unspecified intellectual disabilities; Z87.440 Personal history of urinary (tract) infections
CPT/HCPCS: 0241U; 51798; 71046; 80053; 82947; 83735; 85025; 87651; 99282; 99283

== ENCOUNTER 2022-10-31 18:39 | Inpatient (IN) | payer MEDICARE, MEDICAID, SELFPAY ==
--- NOTE | ~2022-10-31 | XR_ITS ---
EXAMINATION: XR CHEST CLINICAL INFORMATION: Fever COMPARISON: 08/30/2022 TECHNIQUE: Frontal view of the chest was obtained. FINDINGS: The lungs are hypoinflated which limits evaluation. No definite consolidation is seen. No evidence of pneumothorax, significant pleural effusion, or overt pulmonary edema. The cardiomediastinal contour is unremarkable. Degenerative changes are noted in the spine. XR/XR chest 1V IMPRESSION: Low lung volumes without definite consolidation.
[2022-10-31 18:45] VITALS: BP 110/47; BP 137/68; PULSE 105; PULSE 108; RESP 16; TEMP 37.2; O2SAT 97; BMI 23.6
[2022-10-31 21:45] VITALS: BP 113/47; PULSE 103; RESP 24; TEMP 38.9; O2SAT 95
[2022-10-31 21:58] LABS: Hematocrit 30.9 % (37.0-47.0); Hemoglobin 10.7 g/dl (12.0-16.0); Imm Gran Abs Auto 0.01 X10*3/uL (0.00-0.03); Imm Gran Pct Auto 0.3 % (0.0-0.4); MANUAL DIFF FLAG SCAN; Mean Corpuscular HGB Conc 34.6 g/dl (31.0-35.0); PLT CLUMP 1; SCAN SMEAR FLAG 1
[2022-10-31 22:00] LABS: Eosinophils Absolute Auto 0.6 X10*3/uL (0.0-0.4); Eosinophils Percent Auto 15.1 % (0-4); Lymphocytes Absolute Auto 0.3 X10*3/uL (1.2-4.9); Lymphocytes Percent Auto 8.9 % (20-40); Mean Corpuscular Hemoglobin 30.5 pg (27.0-33.0); Mean Platelet Volume 10.2 fL (9.4-12.3); Monocytes Absolute Auto 0.5 X10*3/uL (0.1-1.2); Neutrophils Absolute Auto 2.5 x10*3/uL (2.0-8.3); Neutrophils Percent Auto 63.7 % (45-73); Red Blood Count 3.51 X10*6/uL (4.20-5.50); Red Cell Distribution Width 12.2 % (11.0-16.0)
[2022-10-31 22:09] LABS: Platelet Count 173 X10*3/uL (160-400)
[2022-10-31 22:10] LABS: White Blood Count 3.8 X10*3/uL (4.8-10.8)
--- NOTE | 2022-10-31 22:19 | ECG_ITS ---
Test Reason : WEAKNESS Blood Pressure : / mmHG Vent. Rate : 103 BPM Atrial Rate : 103 BPM P-R Int : 150 ms QRS Dur : 064 ms QT Int : 316 ms P-R-T Axes : 044 019 057 degrees QTc Int : 413 ms Sinus tachycardia Otherwise normal ECG When compared with ECG of 16-JUL-2022 20:02, No significant change was found Referred By: Ayala Hodge Electronically Signed By:KARINA DAILY MD
[2022-10-31 22:20] LABS: SLIDE REVIEW VERIFIED
--- NOTE | 2022-10-31 22:22 | ED_ITS ---
HPI - General Adult General Chief complaint: General Medical Stated complaint: Not eating/ weak Time Seen by Provider: 10/31/22 19:54 Source: EMS and other ([facility] staff) Mode of arrival: EMS Limitations: altered mental status History of Present Illness HPI narrative: [facility] a [facility]. Patient usually he is able to answer yes no questions, assist the staff to switch her from a wheelchair to bed. Over last 5 days, patient has been too weak to do so. Five days ago, patient was diagnosed with a UTI, treated with Bactrim. However, the staff has noticed that the patient is not improving and actually getting much weaker. Yesterday, patient had 1 episode of diarrhea, no vomiting. Today, patient has not been answering any questions, she is awake. Patient usually get s very excited about drinking coffee. However, today she was trying to reach but unable to lift a cup due to weakness. Related Data Previous Rx's Medication Instructions Recorded clindamycin HCl 300 mg capsule 300 mg PO TID #21 caps 08/12/21 cefpodoxime 100 mg tablet 100 mg PO Q12H 7 days #14 tabs 02/04/22 cefdinir 300 mg capsule 300 mg PO BID 5 days #10 caps 03/14/22 cefpodoxime 100 mg tablet 100 mg PO Q12H 7 days #14 tabs 07/17/22 oseltamivir 75 mg capsule (Tamiflu) 75 mg PO BID 5 days #10 caps 08/30/22 Allergies Allergy/AdvReac Type Severity Reaction Status Date / Time JULIET Inhibitors Allergy Unknown UNKNOWN Verified 08/30/22 13:09 [JULIET INHIBITORS] Review of Systems Review of Systems: Yes Unobtainable due to mental condition [facility] Past Medical History Medical History COVID-19 Diabetes Hyperlipidemia Hypertension Intellectual disability Osteoporosis Seizures Swallowing difficulty Social History Social History Advance Directives: No Advance Directives Information Provided: Yes Physical Exam ED Vital Signs: Vital Signs - 24 hr 10/31/22 18:45 Temperature 98.9 F Pulse Rate 105 H Respiratory Rate 16 Blood Pressure 110/47 L Pulse Oximetry 97 Oxygen Delivery Method Room Air BMI result Body Mass Index 23.6 Const Other: Appearance: Alert. Lethargic, opens her eyes on command. Eyes: Pupils equal, round and reactive to light. ENT: Pharynx normal. Oral mucosa seems a bit dry Neck: Normal inspection. Neck supple. No lymph nodes noted. No crepitus CVS: Normal heart rate and rhythm. Pulses normal. Normal S1 and S2 Respiratory: No respiratory distress. Breath sounds normal. No Wheezing. No rales Abdomen: Soft and nontender. No rigidity. No distention. Skin: Skin very warm to touch. Suspect patient has fever Extremities: No lower extremity edema. No Lacerations. No Rash Neuro: Unable to participate in cranial nerve assessment Psych: calm Course Course Course Narrative: -all of patient's vitals, labs pending. Medical Decision Making Medical Decision Making [facility] Narrative: -22:15 I was informed by the patient's nurse that the patient has a fever, rectal temperature of 102 degrees. -patient being given 2 L of normal saline. All of the labs are pending. Patient likely has a UTI. Patient covered with ceftriaxone -patient had a sodium of 129, patient has history of chronic hyponatremia -patient's urine is positive for UTI, patient has already been covered with IV fluids and ceftriaxone. -also, patient being admitted for failure to thrive Differential Diagnosis Differential Diagnoses: The differential diagnosis associated with the presentation includes (uti, encephalopathy) Admission/Observation Consideration of admission/observation: Escalation of care including admission/observation considered Consult Healthcare Provider Management of the patient was discussed with: Hospitalist Lab Data [facility] Lab Attestation statement: I reviewed the patient's lab results. 10/31/22 21:51 10/31/22 21:51 Labs: Lab Results 10/31/22 10/31/22 10/31/22 Range/Units 21:51 21:51 22:15 WBC 3.8 L (4.8-10.8) X10*3/uL RBC 3.51 L (4.20-5.50) X10*6/uL Hgb 10.7 L (12.0-16.0) g/dl Hct 30.9 L (37.0-47.0) % MCV 88.0 (80.0-98.0) fL MCH 30.5 (27.0-33.0) pg MCHC 34.6 (31.0-35.0) g/dl RDW 12.2 (11.0-16.0) % Plt Count 173 D (160-400) X10*3/uL MPV 10.2 (9.4-12.3) fL Immature Gran % (Auto) 0.3 (0.0-0.4) % Neut % (Auto) 63.7 (45-73) % Lymph % (Auto) 8.9 L (20-40) % [place] % (Auto) 12.0 H (2-11) % Eos % (Auto) 15.1 H (0-4) % Baso % (Auto) 0.0 (0-2) % Lymph # (Auto) 0.3 L (1.2-4.9) X10*3/uL [place] # (Auto) 0.5 (0.1-1.2) X10*3/uL Eos # (Auto) 0.6 H (0.0-0.4) X10*3/uL Baso # (Auto) 0.0 (0.0-0.2) X10*3/uL Abs Immat Gran (auto) 0.01 (0.00-0.03) X10*3/uL Absolute Neuts (auto) 2.5 (2.0-8.3) x10*3/uL Absolute Nucleated RBC 0.000 (0.0-0.012) X10*3/uL Nucleated RBC % (auto) 0.0 (0.0-0.2) /100WBC Smear Tech's Comments VERIFIED Sodium 129 L (135-145) mmol/L Potassium 4.2 (3.3-5.1) mmol/L Chloride 96 (96-108) mmol/L Carbon Dioxide 22 (22-29) mmol/L Anion Gap 15 (12-20) BUN 27 H (9-16) mg/dL Creatinine 1.26 (0.5-1.4) mg/dL Estim Creat Clear Calc 28.1 Estimated GFR 41 Random Glucose 72 (60-115) mg/dL Calcium 8.7 D (8.4-10.2) mg/dL Total Bilirubin 0.2 (0.0-1.0) mg/dL AST 81 H (5-31) U/L ALT 60 H (0-31) U/L Alkaline Phosphatase 71 (39-117) U/L Total Protein 6.4 L (6.5-8.0) g/dL Albumin 3.6 (3.5-5.0) g/dL Urine Color Yellow Urine Appearance Hazy Urine pH 7.0 (5.0-9.0) Ur Specific [place] 1.020 (1.005-1.025) Urine Protein Trace (Neg-Trace) mg/dL Urine Glucose (UA) Negative (Negative) mg/dL Urine Ketones Negative (Negative) mg/dL Urine Blood Negative (Negative) Urine Nitrite Negative (Negative) Ur Leukocyte Esterase Moderate (2+) H (Negative) Urine RBC >20 H (0-2) /HPF Urine WBC 21-50 H (0-5) /HPF Ur Squamous Epith Cells 0-2 (0-2) /HPF Urine Bacteria 4+ (None Seen) Hyaline Casts 0-2 (0-2) /LPF Independent Interpretation I performed an independent interpretation of an: EKG (EKG my interpretation: Sinus rhythm, heart 103, no ST segment depression or elevation, no T-wave inversion, QTC 413) Radiology Impression Discussion of test interpretation with radiology: I have reviewed the radiologist's reading. Radiologist Impression: FINDINGS: The lungs are hypoinflated which limits evaluation. No definite consolidation is seen. No evidence of pneumothorax, significant pleural effusion, or overt pulmonary edema. The cardiomediastinal contour is unremarkable. Degenerative changes are noted in the spine. XR/XR chest 1V IMPRESSION: Low lung volumes without definite consolidation. Discharge Plan Discharge Clinical Impression: Acute UTI, Adult failure to thrive Patient Disposition: Admitted As Inpatient Prescriptions: No Action clindamycin HCl 300 mg capsule 300 mg PO TID Qty: 21 0RF cefpodoxime 100 mg tablet 100 mg PO Q12H 7 Days Qty: 14 0RF Rx Instructions: must administer with a meal/food cefdinir 300 mg capsule 300 mg PO BID 5 Days Qty: 10 0RF cefpodoxime 100 mg tablet 100 mg PO Q12H 7 Days Qty: 14 0RF Rx Instructions: must administer with a meal/food oseltamivir [Tamiflu] 75 mg capsule 75 mg PO BID 5 Days Qty: 10 0RF
[2022-10-31 22:24] LABS: Alanine Aminotransferase 60 U/L (0-31); Albumin Level 3.6 g/dL (3.5-5.0); Alkaline Phosphatase 71 U/L (39-117); Anion Gap 15 (12-20); Aspartate Amino Transferase 81 U/L (5-31); Bilirubin Total 0.2 mg/dL (0.0-1.0); Blood Urea Nitrogen 27 mg/dL (9-16); Calcium 8.7 mg/dL (8.4-10.2); Carbon Dioxide 22 mmol/L (22-29); Chloride 96 mmol/L (96-108); Creatinine Clr Calc Pharmacy 28.1; Estimated Glomerular Filt Rate 41; Glucose Random 72 mg/dL (60-115); Potassium 4.2 mmol/L (3.3-5.1); Sodium 129 mmol/L (135-145); Total Protein 6.4 g/dL (6.5-8.0)
[2022-10-31 22:25] LABS: Appearance Urine Hazy; Color Urine Yellow; Glucose Urine UA Negative (Negative); Leukocyte Esterase Urine Moderate (2+) (Negative); Nitrite Urine Negative (Negative); UMIC TRIGGER UACC YES; Urine Blood Negative (Negative); Urine Ketones Negative (Negative); Urine Protein Trace mg/dL (Neg-Trace)
[2022-10-31 22:33] LABS: Bacteria Urine 4+ (None Seen); Hyaline Casts Urine 0-2 /LPF (0-2); RBC Urine >20 /HPF (0-2); Squamous Epithelial Cell Urine 0-2 /HPF (0-2); UACC Culture Trigger YES; WBC Urine 21-50 /HPF (0-5)
--- NOTE | 2022-10-31 23:00 | PC.NURSE ---
This law writer assumed care of this Pt at 1900. Pt awake and alert,not verbal at this time. alf staff at bedside, reports Pt is able to answer yes or no questions and make needs known like food and BR. Staff member also reports increase weakness. IV placed, blood work collected and sent to lab. Pt warm to touch, rectal temp 102.0, Dr. Hodge notified. Straight cath urine sample obtained, draining yellow urine with thick white sediment. Pt skin is intact.
[2022-10-31] MEDS: cefTRIAXone sodium 1 GM in 0.9 % Sodium Chloride 50 ML IV (23:33)
[2022-10-31] MEDS: 0.9 % Sodium Chloride 2,000 ML 999 ML IVCONT (23:33)
--- NOTE | 2022-10-31 23:40 | PM.IMHP ---
History of Present Illness Date of Service: 10/31/22 Chief Complaint: UTI This is a 77-year-old female with pertinent history of enj-xhhjdye-hggueiibs diabetes mellitus, essential hypertension, seizure disorder on Dilantin, mixed hyperlipidemia was brought to the emergency department for evaluation of lethargy. Patient was diagnosed with UTI 5 days ago and was on Bactrim. However nursing staff noted that patient continue to be weak and was not responding to questions. At baseline patient is not conversational but responds in one-word answers. Heparin Lenora patient was not responding prior to being brought to the ER. Also had episode of diarrhea and vomiting. Nursing staff did report fevers and chills. Unable to obtain review of systems. In the emergency department, patient was found to be septic and urine was concerning for UTI Review of Systems Review of Systems: Yes Unobtainable due to mental status [facility] Medical History COVID-19 Diabetes Hyperlipidemia Hypertension Intellectual disability Osteoporosis Seizures Swallowing difficulty Social History Advance Directives: No Advance Directives Information Provided: Yes Meds Allergies Allergy/AdvReac Type Severity Reaction Status Date / Time JULIET Inhibitors Allergy Unknown UNKNOWN Verified 08/30/22 13:09 [JULIET INHIBITORS] Active Medications: Current Medications Sodium Chloride (Ns) 2,000 mls @ 999 mls/hr IVCONT .Q2H1M ONE Stop: 11/01/22 00:18 Last Admin: 10/31/22 23:33 Dose: 999 mls/hr Physical Exam Vital Signs and Narrative: Vital Signs: Last Vital Signs Temp 102.0 F H 10/31/22 21:45 Pulse 103 H 10/31/22 21:45 Resp 24 H 10/31/22 21:45 BP 113/47 L 10/31/22 21:45 Pulse Ox 95 10/31/22 21:45 O2 Del Method 10/31/22 21:45 BMI result Body Mass Index 23.6 Elderly female lying in bed in no distress Neck supple, no JVD Tachycardic with regular rhythm, S1-S2 heard Regular breath sounds bilaterally, no wheezing or crackles appreciated Abdomen soft nontender, no guarding, no rigidity Patient is awake, and occasionally in nodes in response to questions, non conversational Psych: Normal mood No pedal edema Results Labs 10/31/22 21:51 10/31/22 21:51 Labs: Laboratory Results - last 24 hr 10/31/22 10/31/22 10/31/22 21:51 21:51 22:15 MCV 88.0 MCH 30.5 MCHC 34.6 RDW 12.2 Plt Count 173 D MPV 10.2 Immature Gran % (Auto) 0.3 Neut % (Auto) 63.7 Lymph % (Auto) 8.9 L [place] % (Auto) 12.0 H Eos % (Auto) 15.1 H Baso % (Auto) 0.0 Lymph # (Auto) 0.3 L [place] # (Auto) 0.5 Eos # (Auto) 0.6 H Baso # (Auto) 0.0 Abs Immat Gran (auto) 0.01 Absolute Neuts (auto) 2.5 Absolute Nucleated RBC 0.000 Nucleated RBC % (auto) 0.0 Smear Tech's Comments VERIFIED Anion Gap 15 Estim Creat Clear Calc 28.1 Estimated GFR 41 Random Glucose 72 Calcium 8.7 D Total Bilirubin 0.2 Direct Bilirubin AST 81 H ALT 60 H Alkaline Phosphatase 71 Total Protein 6.4 L Albumin 3.6 Urine Color Yellow Urine Appearance Hazy Urine pH 7.0 Ur Specific [place] 1.020 Urine Protein Trace Urine Glucose (UA) Negative Urine Ketones Negative Urine Blood Negative Urine Nitrite Negative Ur Leukocyte Esterase Moderate (2+) H Urine RBC >20 H Urine WBC 21-50 H Ur Squamous Epith Cells 0-2 Urine Bacteria 4+ Hyaline Casts 0-2 10/31/22 23:19 MCV MCH MCHC RDW Plt Count MPV Immature Gran % (Auto) Neut % (Auto) Lymph % (Auto) [place] % (Auto) Eos % (Auto) Baso % (Auto) Lymph # (Auto) [place] # (Auto) Eos # (Auto) Baso # (Auto) Abs Immat Gran (auto) Absolute Neuts (auto) Absolute Nucleated RBC Nucleated RBC % (auto) Smear Tech's Comments Anion Gap Estim Creat Clear Calc Estimated GFR Random Glucose Calcium Total Bilirubin Cancelled Direct Bilirubin Cancelled AST Cancelled ALT Cancelled Alkaline Phosphatase Cancelled Total Protein Cancelled Albumin Cancelled Urine Color Urine Appearance Urine pH Ur Specific [place] Urine Protein Urine Glucose (UA) Urine Ketones Urine Blood Urine Nitrite Ur Leukocyte Esterase Urine RBC Urine WBC Ur Squamous Epith Cells Urine Bacteria Hyaline Casts Imaging Radiologist's Impressions: Impressions Chest X-Ray 10/31/22 22:44 IMPRESSION: Low lung volumes without definite consolidation. Assessment and Plan (1) Acute UTI: Status: Acute Plan This is a 77-year-old female with pertinent history of tpp-msxwxkr-ldxqzwkox diabetes mellitus, essential hypertension, seizure disorder on Dilantin, mixed hyperlipidemia was brought to the emergency department for evaluation of lethargy. #. Sepsis due to acute UTI: Failed p.o. antibiotics. Will admit and initiate empiric Rocephin. Lactic acid and blood cultures obtained. Follow urine culture #. Acute metabolic encephalopathy in the setting of above #. Mild hyponatremia, likely hypovolemic: Monitor sodium with fluid resuscitation #. Essential hypertension: Hold p.o. antihypertensives in the setting of sepsis #. Seizure disorder on Dilantin #. Izt-pbdhrhi-vhcfidpry diabetes mellitus: Initiate Accu-Cheks with sliding scale insulin every 6 hours #. Chronic normocytic anemia Med rec pending DVT prophylaxis: Lovenox 30 mg daily Full code NPO until mentation improves Admit as inpatient and will require two night minimum hospital stay for IV antibiotics Time Spent With Patient Time: Total time managing care of this patient today ____ minutes. Quality Stroke Does the patient have a stroke diagnosis?: No VTE Prior VTE?: No VTE Risk Level:: Medical - moderate - high VTE Device Contraindication: Treatment Not Indicated VTE Drug Contraindication: N/A - Med Ordered
[2022-10-31 23:43] LABS: Lactic Acid 1.7 mmol/L (0.5-2.0)
[2022-10-31 23:51] LABS: Bilirubin Direct < 0.2 mg/dL (0.0-0.5)
[2022-10-31 23:52] LABS: Troponin-I High Sensitivity 7.8 ng/L (<3.5-17.0)
[2022-10-31 23:54] LABS: COVID-19 Test Negative (Negative); IDNOW Serial# 6674DD1D
[2022-11-01] MEDS: Enoxaparin Sodium 30 MG/0.3 ML SYRINGE SUBCUT ×2 (00:37→23:55)
[2022-11-01 00:39] LABS: Glucose, Whole Blood 61 mg/dL (60-115)
[2022-11-01 01:00] VITALS: BP 146/50; PULSE 98; RESP 17; TEMP 38.3; O2SAT 97
[2022-11-01] MEDS: Glucose Gel 15 GM GEL..GRAM. PO (01:06)
--- NOTE | 2022-11-01 01:34 | PC.NURSE ---
Pt POC 61, no insulin coverage needed. Glucose gel given, Pt tolerated well. Med effectiveness, increase POC to 80.
[2022-11-01 01:37] LABS: Glucose, Whole Blood 80 mg/dL (60-115)
[2022-11-01] MEDS: Acetaminophen 325 MG TABLET 650 MG PO ×2 (01:58→20:58)
[2022-11-01 03:00] VITALS: BP 128/56; PULSE 84; RESP 20; TEMP 37.5
--- NOTE | 2022-11-01 04:42 | PC.NURSE ---
Incontinent care provided. Pt repositioned. shelter staff member at bedside.
[2022-11-01 06:20] LABS: Glucose, Whole Blood 62 mg/dL (60-115)
[2022-11-01 06:29] LABS: MANUAL DIFF FLAG NO
[2022-11-01] MEDS: Dextrose 50 % 25 GM/50 ML SYRINGE IVPUSH (06:30)
--- NOTE | 2022-11-01 06:33 | PC.NURSE ---
Pt sleeping at this time, POC 62. IV dextrose given. Will CTM.
[2022-11-01 06:35] LABS: Eosinophils Absolute Auto 0.6 X10*3/uL (0.0-0.4); Eosinophils Percent Auto 18.5 % (0-4); Hematocrit 29.5 % (37.0-47.0); Hemoglobin 10.1 g/dl (12.0-16.0); Imm Gran Abs Auto 0.01 X10*3/uL (0.00-0.03); Imm Gran Pct Auto 0.3 % (0.0-0.4); Lymphocytes Absolute Auto 0.5 X10*3/uL (1.2-4.9); Lymphocytes Percent Auto 17.2 % (20-40); Mean Corpuscular HGB Conc 34.2 g/dl (31.0-35.0); Mean Corpuscular Hemoglobin 30.5 pg (27.0-33.0); Mean Corpuscular Volume 89.1 fL (80.0-98.0); Mean Platelet Volume 9.8 fL (9.4-12.3); Monocytes Absolute Auto 0.4 X10*3/uL (0.1-1.2); Monocytes Percent Auto 13.1 % (2-11); Neutrophils Absolute Auto 1.5 x10*3/uL (2.0-8.3); Neutrophils Percent Auto 50.9 % (45-73); Platelet Count 185 X10*3/uL (160-400); Red Blood Count 3.31 X10*6/uL (4.20-5.50); Red Cell Distribution Width 12.2 % (11.0-16.0)
[2022-11-01 06:49] LABS: Glucose, Whole Blood 218 mg/dL (60-115)
[2022-11-01 06:50] LABS: Anion Gap 13 (12-20); Blood Urea Nitrogen 23 mg/dL (9-16); Calcium 7.7 mg/dL (8.4-10.2); Carbon Dioxide 21 mmol/L (22-29); Chloride 102 mmol/L (96-108); Creatinine Clr Calc Pharmacy 36.6; Estimated Glomerular Filt Rate 55; Glucose Random 71 mg/dL (60-115); Potassium 3.9 mmol/L (3.3-5.1); Sodium 132 mmol/L (135-145)
[2022-11-01 07:23] VITALS: BP 163/70; PULSE 81; RESP 12; TEMP 36.4; O2SAT 99
--- NOTE | 2022-11-01 09:09 | PHA.MEDREC ---
Pharmacy Consult ? Medication Reconciliation Pharmacy has completed the medication reconciliation. med rec completed. spoke with patients family member. patient is currently on bactrim SS and family member says she has 2 doses remaining and was last taken 10/31/22 in the AM.
--- NOTE | 2022-11-01 10:22 | PC.NURSE ---
pt incontinent of stool and urine. cleaned, linens chagned and pt repositioned with a pillow between her legs
[2022-11-01] MEDS: 0.9 % Sodium Chloride Flush 3 ML SYRINGE IVFLUSH ×3 (10:56→20:59)
[2022-11-01 13:17] LABS: Glucose, Whole Blood 100 mg/dL (60-115)
--- NOTE | 2022-11-01 14:08 | HO.PM.IMPN ---
Subjective Subjective Date of Service: 11/01/22 Review of Systems follow-up sepsis secondary to UTI mostly nonverbal Review of Systems: Yes Unobtainable due to mental status Physical Exam Vital Signs: Vital Signs: Last Vital Signs Temp 97.6 F 11/01/22 07:23 Pulse 81 11/01/22 07:23 Resp 12 11/01/22 07:23 BP 163/70 H 11/01/22 07:23 Pulse Ox 99 11/01/22 07:23 O2 Del Method 11/01/22 07:23 BMI result Body Mass Index 23.6 Appearing in no acute distress lung sounds are clear to auscultation heart regular rate rhythm, clear S1, S2 positive bowel sounds, abdomen is soft, nontender neuro patient is alert x3, no focal deficits Objective Data Active Medications Acetaminophen (Acetaminophen 325 Mg Tablet) 650 mg PO Q6H PRN PRN Reason: Pain, Mild (Pain Scale 1-3) Last Admin: 11/01/22 01:58 Dose: 650 mg Documented By: ANATOLY Dextrose (Dextrose 50 % 25 Gm/50 Ml Syringe) 25 gm IVPUSH Q15M PRN; Protocol PRN Reason: per Hypoglycemia Standing Ord. Last Admin: 11/01/22 06:30 Dose: 25 gm Documented By: ANATOLY Enoxaparin Sodium (Enoxaparin Sodium 30 Mg/0.3 Ml Syringe) 30 mg SUBCUT Q24H EDUARDO Last Admin: 11/01/22 00:37 Dose: 30 mg Documented By: ANATOLY Glucose (Glucose Gel 15 Gm Gel..Gram.) 15 gm PO Q15M PRN; Protocol PRN Reason: per Hypoglycemia Standing Ord. Last Admin: 11/01/22 01:06 Dose: 15 gm Documented By: ANATOLY Ceftriaxone Sodium 1 gm/ (Sodium Chloride) 50 mls @ 100 mls/hr IV Q24H EDUARDO Insulin Human Lispro (Insulin Lispro 100 Unit/Ml 3 Ml Vial) 0 unit SUBCUT Q6H [facility]; Protocol Last Admin: 11/01/22 13:37 Dose: Not Given Documented By: PEYTON Non-Admin Reason: No Insulin Coverage Melatonin (Melatonin 3 Mg Tablet) 6 mg PO BEDTIME PRN PRN Reason: Insomnia Ondansetron HCl (Ondansetron Hcl 4 Mg/2 Ml Vial) 4 mg IVPUSH Q8H PRN PRN Reason: Nausea and Vomiting Pharmacy Consult (Consult Rx Perform Med Rec) 1 each MISCELLANE ONCE PRN PRN Reason: Consult order Sodium Chloride (0.9 % Sodium Chloride Flush 3 Ml Syringe) 3 ml IVFLUSH QSHIFT [facility] Last Admin: 11/01/22 10:56 Dose: 3 ml Documented By: PEYTON Labs 11/01/22 05:35 11/01/22 05:35 Labs: Laboratory Results - last 24 hr 10/31/22 10/31/22 10/31/22 21:51 21:51 22:15 MCV 88.0 MCH 30.5 MCHC 34.6 RDW 12.2 Plt Count 173 D MPV 10.2 Immature Gran % (Auto) 0.3 Neut % (Auto) 63.7 Lymph % (Auto) 8.9 L [place] % (Auto) 12.0 H Eos % (Auto) 15.1 H Baso % (Auto) 0.0 Lymph # (Auto) 0.3 L [place] # (Auto) 0.5 Eos # (Auto) 0.6 H Baso # (Auto) 0.0 Abs Immat Gran (auto) 0.01 Absolute Neuts (auto) 2.5 Absolute Nucleated RBC 0.000 Nucleated RBC % (auto) 0.0 Smear Tech's Comments VERIFIED Anion Gap 15 Estim Creat Clear Calc 28.1 Estimated GFR 41 POC Glucose Random Glucose 72 Lactic Acid Calcium 8.7 D Total Bilirubin 0.2 Direct Bilirubin < 0.2 AST 81 H ALT 60 H Alkaline Phosphatase 71 Troponin I High Sens Total Protein 6.4 L Albumin 3.6 Urine Color Yellow Urine Appearance Hazy Urine pH 7.0 Ur Specific [place] 1.020 Urine Protein Trace Urine Glucose (UA) Negative Urine Ketones Negative Urine Blood Negative Urine Nitrite Negative Ur Leukocyte Esterase Moderate (2+) H Urine RBC >20 H Urine WBC 21-50 H Ur Squamous Epith Cells 0-2 Urine Bacteria 4+ Hyaline Casts 0-2 COVID-19 ([facility]) COVID-19 Clin Com 10/31/22 10/31/22 10/31/22 22:59 23:19 23:19 MCV MCH MCHC RDW Plt Count MPV Immature Gran % (Auto) Neut % (Auto) Lymph % (Auto) [place] % (Auto) Eos % (Auto) Baso % (Auto) Lymph # (Auto) [place] # (Auto) Eos # (Auto) Baso # (Auto) Abs Immat Gran (auto) Absolute Neuts (auto) Absolute Nucleated RBC Nucleated RBC % (auto) Smear Tech's Comments Anion Gap Estim Creat Clear Calc Estimated GFR POC Glucose Random Glucose Lactic Acid 1.7 Calcium Total Bilirubin Cancelled Direct Bilirubin Cancelled AST Cancelled ALT Cancelled Alkaline Phosphatase Cancelled Troponin I High Sens Total Protein Cancelled Albumin Cancelled Urine Color Urine Appearance Urine pH Ur Specific [place] Urine Protein Urine Glucose (UA) Urine Ketones Urine Blood Urine Nitrite Ur Leukocyte Esterase Urine RBC Urine WBC Ur Squamous Epith Cells Urine Bacteria Hyaline Casts COVID-19 ([facility]) Negative COVID-19 Clin Com See Note 10/31/22 11/01/22 11/01/22 23:19 00:36 01:32 MCV MCH MCHC RDW Plt Count MPV Immature Gran % (Auto) Neut % (Auto) Lymph % (Auto) [place] % (Auto) Eos % (Auto) Baso % (Auto) Lymph # (Auto) [place] # (Auto) Eos # (Auto) Baso # (Auto) Abs Immat Gran (auto) Absolute Neuts (auto) Absolute Nucleated RBC Nucleated RBC % (auto) Smear Tech's Comments Anion Gap Estim Creat Clear Calc Estimated GFR POC Glucose 61 80 Random Glucose Lactic Acid Calcium Total Bilirubin Direct Bilirubin AST ALT Alkaline Phosphatase Troponin I High Sens 7.8 Total Protein Albumin Urine Color Urine Appearance Urine pH Ur Specific [place] Urine Protein Urine Glucose (UA) Urine Ketones Urine Blood Urine Nitrite Ur Leukocyte Esterase Urine RBC Urine WBC Ur Squamous Epith Cells Urine Bacteria Hyaline Casts COVID-19 ([facility]) COVID-19 Clin Com 11/01/22 11/01/22 11/01/22 05:35 05:35 06:16 MCV 89.1 MCH 30.5 MCHC 34.2 RDW 12.2 Plt Count 185 MPV 9.8 Immature Gran % (Auto) 0.3 Neut % (Auto) 50.9 Lymph % (Auto) 17.2 L [place] % (Auto) 13.1 H Eos % (Auto) 18.5 H Baso % (Auto) 0.0 Lymph # (Auto) 0.5 L [place] # (Auto) 0.4 Eos # (Auto) 0.6 H Baso # (Auto) 0.0 Abs Immat Gran (auto) 0.01 Absolute Neuts (auto) 1.5 L Absolute Nucleated RBC 0.000 Nucleated RBC % (auto) 0.0 Smear Tech's Comments Anion Gap 13 Estim Creat Clear Calc 36.6 Estimated GFR 55 POC Glucose 62 Random Glucose 71 Lactic Acid Calcium 7.7 L D Total Bilirubin Direct Bilirubin AST ALT Alkaline Phosphatase Troponin I High Sens Total Protein Albumin Urine Color Urine Appearance Urine pH Ur Specific [place] Urine Protein Urine Glucose (UA) Urine Ketones Urine Blood Urine Nitrite Ur Leukocyte Esterase Urine RBC Urine WBC Ur Squamous Epith Cells Urine Bacteria Hyaline Casts COVID-19 ([facility]) COVID-19 Clin Com 11/01/22 11/01/22 06:46 13:11 MCV MCH MCHC RDW Plt Count MPV Immature Gran % (Auto) Neut % (Auto) Lymph % (Auto) [place] % (Auto) Eos % (Auto) Baso % (Auto) Lymph # (Auto) [place] # (Auto) Eos # (Auto) Baso # (Auto) Abs Immat Gran (auto) Absolute Neuts (auto) Absolute Nucleated RBC Nucleated RBC % (auto) Smear Tech's Comments Anion Gap Estim Creat Clear Calc Estimated GFR POC Glucose 218 H 100 Random Glucose Lactic Acid Calcium Total Bilirubin Direct Bilirubin AST ALT Alkaline Phosphatase Troponin I High Sens Total Protein Albumin Urine Color Urine Appearance Urine pH Ur Specific [place] Urine Protein Urine Glucose (UA) Urine Ketones Urine Blood Urine Nitrite Ur Leukocyte Esterase Urine RBC Urine WBC Ur Squamous Epith Cells Urine Bacteria Hyaline Casts COVID-19 ([facility]) COVID-19 Clin Com Microbiology Microbiology Results: Microbiology 10/31/22 22:30 Urine Culture - Preliminary Urine Catheterized - Crum Catheter Culture too young to evaluate. Assessment and Plan (1) Acute UTI: Status: Acute Plan This is a 77-year-old female with pertinent history of mxs-dpgjtkg-cplfdycxv diabetes mellitus, essential hypertension, seizure disorder on Dilantin, mixed hyperlipidemia was brought to the emergency department for evaluation of lethargy. Sepsis due to acute UTI Failed p.o. antibiotics.? Continue Rocephin Follow urine culture? Acute metabolic encephalopathy in the setting of above Mild hyponatremia, likely hypovolemic Monitor sodium with fluid resuscitation hold HCTZ Essential hypertension continue home medications Seizure disorder Dilantin Seizure precautions Xpl-pmvxgkt-dicevbsxa diabetes mellitus ada diet, ss Chronic normocytic anemia DVT prophylaxis: Lovenox 30 mg daily attending and Dr. Orr NPO until mentation improves continued hospital stay for IV antibiotics Time Spent With Patient Time: Total time managing care of this patient today ____ minutes. Quality Stroke Does the patient have a stroke diagnosis?: No VTE Prior VTE?: No VTE Risk Level:: Medical - moderate - high VTE Device Contraindication: Treatment Not Indicated VTE Drug Contraindication: N/A - Med Ordered
[2022-11-01 15:13] VITALS: PULSE 90; RESP 12; TEMP 37.7; O2SAT 95
--- NOTE | 2022-11-01 15:21 | PC.NURSE ---
pts niece/hcp and pts [facility] staff at bedside. reporting pt is stating that she is hungry. pt more awake and alert than she was last night - per her HCP and staff pt appears to be at her baseline. will reach out to Angelica Baca about ? RN bed side swallow for pt
--- NOTE | 2022-11-01 15:39 | PC.NURSE ---
completed bedside swallow eval. pt passed. pt does appear to have delayed swallowing, with each mouthful of water offered she would reposition her head prior to swallowing it. pt however did swallow completely and was able to cough following without wetness/gurgling.
--- NOTE | 2022-11-01 15:46 | PC.NURSE ---
rash noted to pts lower abdomen and upper thig area - pts bedside staff report this is something new for her. rash is not itchy in nature. notified Angelica Teixeira via [employer] connect and photograph sent.
[2022-11-01 16:00] VITALS: BP 163/68; PULSE 94; RESP 20; TEMP 36.8; O2SAT 97
[2022-11-01] MEDS: amLODIPine Besylate 2.5 MG TABLET PO (17:27)
[2022-11-01 17:30] LABS: Glucose, Whole Blood 128 mg/dL (60-115)
[2022-11-01 19:49] VITALS: BP 154/81; PULSE 89; RESP 20; TEMP 36.3; O2SAT 98
[2022-11-01 20:23] LABS: Glucose, Whole Blood 121 mg/dL (60-115)
[2022-11-01] MEDS: Pravastatin Sodium 40 MG TABLET PO (20:58)
[2022-11-01] MEDS: cefTRIAXone sodium 1 GM in 0.9 % Sodium Chloride 50 ML IV (23:51)
[2022-11-02 01:19] LABS: Glucose, Whole Blood 98 mg/dL (60-115)
[2022-11-02 03:24] VITALS: BP 150/64; PULSE 76; RESP 15; TEMP 36.4; O2SAT 97
[2022-11-02 05:41] LABS: Hematocrit 31.6 % (37.0-47.0); Hemoglobin 10.8 g/dl (12.0-16.0); Mean Corpuscular HGB Conc 34.2 g/dl (31.0-35.0); Mean Corpuscular Volume 87.8 fL (80.0-98.0); Mean Platelet Volume 9.7 fL (9.4-12.3); Platelet Count 167 X10*3/uL (160-400); Red Cell Distribution Width 11.9 % (11.0-16.0); White Blood Count 3.7 X10*3/uL (4.8-10.8)
[2022-11-02 06:09] LABS: Anion Gap 16 (12-20); Blood Urea Nitrogen 20 mg/dL (9-16); Calcium 8.2 mg/dL (8.4-10.2); Carbon Dioxide 20 mmol/L (22-29); Chloride 101 mmol/L (96-108); Creatinine Clr Calc Pharmacy 44.4; Estimated Glomerular Filt Rate > 60; Glucose Random 83 mg/dL (60-115); Potassium 3.9 mmol/L (3.3-5.1); Sodium 133 mmol/L (135-145)
[2022-11-02 06:57] LABS: Glucose, Whole Blood 88 mg/dL (60-115)
[2022-11-02 08:00] VITALS: BP 159/69; PULSE 85; RESP 18; TEMP 36.5; O2SAT 97
--- NOTE | 2022-11-02 08:37 | HO.PM.IMPN ---
Subjective Subjective Date of Service: 11/02/22 Review of Systems follow-up sepsis secondary to UTI mostly nonverbal,but able to say she has no pain Review of Systems: Yes Unobtainable due to mental status Physical Exam Vital Signs: Vital Signs: Last Vital Signs Temp 97.7 F 11/02/22 08:00 Pulse 85 11/02/22 08:00 Resp 18 11/02/22 08:00 BP 159/69 H 11/02/22 08:00 Pulse Ox 97 11/02/22 08:00 O2 Del Method 11/02/22 08:00 BMI result Body Mass Index 23.6 Appearing in no acute distress lung sounds are clear to auscultation heart regular rate rhythm, clear S1, S2 positive bowel sounds, abdomen is soft, nontender neuro patient is alert Objective Data Active Medications Acetaminophen (Acetaminophen 325 Mg Tablet) 650 mg PO Q6H PRN PRN Reason: Pain, Mild (Pain Scale 1-3) Last Admin: 11/01/22 20:58 Dose: 650 mg Documented By: KRISTEN Amlodipine Besylate (Amlodipine Besylate 2.5 Mg Tablet) 2.5 mg PO DAILY@1700 EDUARDO; Protocol Last Admin: 11/01/22 17:27 Dose: 2.5 mg Documented By: NARINDER Dextrose (Dextrose 50 % 25 Gm/50 Ml Syringe) 25 gm IVPUSH Q15M PRN; Protocol PRN Reason: per Hypoglycemia Standing Ord. Last Admin: 11/01/22 06:30 Dose: 25 gm Documented By: ANATOLY Enoxaparin Sodium (Enoxaparin Sodium 30 Mg/0.3 Ml Syringe) 30 mg SUBCUT Q24H [facility] Last Admin: 11/01/22 23:55 Dose: 30 mg Documented By: KRISTEN Fluticasone Propionate (Fluticasone Propionate Nasal 16 Gm Wheeler) 2 spray NOSTRIL-B DAILY [facility] Glucose (Glucose Gel 15 Gm Gel..Gram.) 15 gm PO Q15M PRN; Protocol PRN Reason: per Hypoglycemia Standing Ord. Last Admin: 11/01/22 01:06 Dose: 15 gm Documented By: ANATOLY Ceftriaxone Sodium 1 gm/ (Sodium Chloride) 50 mls @ 100 mls/hr IV Q24H [facility] Last Infusion: 11/02/22 00:25 Dose: 0 mls/hr Documented By: KRISTEN Insulin Human Lispro (Insulin Lispro 100 Unit/Ml 3 Ml Vial) 0 unit SUBCUT Q6H [facility]; Protocol Last Admin: 11/02/22 08:00 Dose: Not Given Documented By: NARINDER Non-Admin Reason: No Insulin Coverage Loratadine (Loratadine 10 Mg Tablet) 10 mg PO DAILY [facility] Losartan Potassium (Losartan Potassium 50 Mg Tablet) 100 mg PO DAILY EDUARDO; Protocol Melatonin (Melatonin 3 Mg Tablet) 6 mg PO BEDTIME PRN PRN Reason: Insomnia Ondansetron HCl (Ondansetron Hcl 4 Mg/2 Ml Vial) 4 mg IVPUSH Q8H PRN PRN Reason: Nausea and Vomiting Pharmacy Consult (Consult Rx Perform Med Rec) 1 each MISCELLANE ONCE PRN PRN Reason: Consult order Phenytoin Sodium (Phenytoin Sodium Extended 100 Mg Capsule) 200 mg PO DAILY [facility] Pravastatin Sodium (Pravastatin Sodium 40 Mg Tablet) 40 mg PO BEDTIME [facility] Last Admin: 11/01/22 20:58 Dose: 40 mg Documented By: KRISTEN Sodium Chloride (0.9 % Sodium Chloride Flush 3 Ml Syringe) 3 ml IVFLUSH QSHIFT [facility] Last Admin: 11/01/22 20:59 Dose: 3 ml Documented By: KRISTEN Labs 11/02/22 05:29 11/02/22 05:29 Labs: Laboratory Results - last 24 hr 11/01/22 11/01/22 11/01/22 13:11 17:27 20:04 MCV MCH MCHC RDW Plt Count MPV Absolute Nucleated RBC Nucleated RBC % (auto) Anion Gap Estim Creat Clear Calc Estimated GFR POC Glucose 100 128 H 121 H Random Glucose Calcium 11/02/22 11/02/22 11/02/22 01:15 05:29 05:29 MCV 87.8 MCH 30.0 MCHC 34.2 RDW 11.9 Plt Count 167 MPV 9.7 Absolute Nucleated RBC 0.000 Nucleated RBC % (auto) 0.0 Anion Gap 16 Estim Creat Clear Calc 44.4 Estimated GFR > 60 POC Glucose 98 Random Glucose 83 Calcium 8.2 L D 11/02/22 06:52 MCV MCH MCHC RDW Plt Count MPV Absolute Nucleated RBC Nucleated RBC % (auto) Anion Gap Estim Creat Clear Calc Estimated GFR POC Glucose 88 Random Glucose Calcium Microbiology Microbiology Results: Microbiology 10/31/22 23:19 Blood Culture - Preliminary Blood - Venous No growth after 24 hours. 10/31/22 23:19 Blood Culture - Preliminary Blood - Venous No growth after 24 hours. 10/31/22 22:30 Urine Culture - Preliminary Urine Catheterized - Crum Catheter Culture too young to evaluate. Assessment and Plan (1) Acute UTI: Status: Acute Plan This is a 77-year-old female with pertinent history of tmo-pyartqe-aqzbhonxs diabetes mellitus, essential hypertension, seizure disorder on Dilantin, mixed hyperlipidemia was brought to the emergency department for evaluation of lethargy. Sepsis due to acute UTI Failed p.o. antibiotics.? Continue Rocephin neg blood cx after 24hrs Follow urine culture? Acute metabolic encephalopathy in the setting of above Mild hyponatremia, likely hypovolemic Monitor sodium with fluid resuscitation hold HCTZ Essential hypertension continue home medications Seizure disorder Dilantin Seizure precautions Waq-szkqsag-umwxagrhp diabetes mellitus ada diet, ss Chronic normocytic anemia DVT prophylaxis: Lovenox 30 mg daily attending and Dr. Orr NPO until mentation improves continued hospital stay for IV antibiotics Time Spent With Patient Time: Total time managing care of this patient today ____ minutes. Quality Stroke Does the patient have a stroke diagnosis?: No VTE Prior VTE?: No VTE Risk Level:: Medical - moderate - high VTE Device Contraindication: Treatment Not Indicated VTE Drug Contraindication: N/A - Med Ordered
[2022-11-02] MEDS: 0.9 % Sodium Chloride Flush 3 ML SYRINGE IVFLUSH ×3 (09:26→22:12)
[2022-11-02] MEDS: Phenytoin Sodium Extended 100 MG CAPSULE 200 MG PO (09:34)
[2022-11-02] MEDS: Loratadine 10 MG TABLET PO (09:34)
[2022-11-02] MEDS: Losartan Potassium 50 MG TABLET 100 MG PO (09:38)
[2022-11-02 13:17] LABS: Glucose, Whole Blood 155 mg/dL (60-115)
[2022-11-02 16:00] VITALS: BP 156/66; PULSE 82; RESP 18; TEMP 36.9; O2SAT 100
[2022-11-02 17:12] LABS: Glucose, Whole Blood 102 mg/dL (60-115)
[2022-11-02] MEDS: amLODIPine Besylate 2.5 MG TABLET PO (17:44)
[2022-11-02 19:16] VITALS: BP 141/80; PULSE 88; RESP 16; TEMP 36.6; O2SAT 96
[2022-11-02 20:01] LABS: Glucose, Whole Blood 134 mg/dL (60-115)
[2022-11-02] MEDS: cefTRIAXone sodium 1 GM in 0.9 % Sodium Chloride 50 ML IV (22:11)
[2022-11-02] MEDS: Pravastatin Sodium 40 MG TABLET PO (22:11)
[2022-11-02] MEDS: Enoxaparin Sodium 30 MG/0.3 ML SYRINGE SUBCUT (23:31)
[2022-11-03 03:59] VITALS: BP 178/72; PULSE 78; RESP 18; TEMP 36.2; O2SAT 94
[2022-11-03 05:29] LABS: Glucose, Whole Blood 86 mg/dL (60-115)
[2022-11-03 06:36] LABS: Anion Gap 15 (12-20); Blood Urea Nitrogen 15 mg/dL (9-16); Calcium 8.5 mg/dL (8.4-10.2); Carbon Dioxide 22 mmol/L (22-29); Chloride 100 mmol/L (96-108); Creatinine Clr Calc Pharmacy 51.4; Estimated Glomerular Filt Rate > 60; Glucose Random 82 mg/dL (60-115); Potassium 3.9 mmol/L (3.3-5.1); Sodium 133 mmol/L (135-145)
[2022-11-03 07:46] LABS: Glucose, Whole Blood 89 mg/dL (60-115)
[2022-11-03 07:50] VITALS: BP 151/68; PULSE 76; RESP 18; TEMP 36.3; O2SAT 97
[2022-11-03 08:23] LABS: Glucose, Whole Blood 100 mg/dL (60-115)
--- NOTE | 2022-11-03 09:20 | P.DS_ITS ---
DS: Providers Provider Date of Service: 11/03/22 Date of admission: 10/31/22 23:41 Primary care physician: Unknown Physician Attending physician on discharge: Selene Orr Discharging clinician: Angelica Teixeira DS: Diagnosis Discharge Diagnosis (1) Acute UTI: Status: Acute DS: Summary Status at Discharge Cognitive/behavioral status at discharge: HP as per admitting provider This is a 77-year-old female with pertinent history of ifc-fdhqisj-ppjsnvebs diabetes mellitus, essential hypertension, seizure disorder on Dilantin, mixed hyperlipidemia was brought to the emergency department for evaluation of lethargy.? Patient was diagnosed with UTI 5 days ago and was on Bactrim.? However nursing staff noted that patient continue to be weak and was not responding to questions.? At baseline patient is not conversational but responds in one-word answers.? Heparin Lenora patient was not responding prior to being brought to the ER.? Also had episode of diarrhea and vomiting.? Nursing staff did report fevers and chills.? Unable to obtain review of systems. In the emergency department, patient was found to be septic and urine was concerning for UTI . Sepsis due to acute UTI Failed p.o. antibiotics.? treated with Rocephin neg blood and urine cx home with 2 more days of ceftin Acute metabolic encephalopathy in the setting of above Mild hyponatremia, likely hypovolemic check labs in 3 days continue to hold HCTZ until sodium recheck Essential hypertension continue home medications Seizure disorder no seizure activity during admission Dilantin Gmt-vcjrcun-tptximrbf diabetes mellitus continue home medications Chronic normocytic anemia Time Spent with Patient Time attestation: Total time managing care of this patient today ____ minutes. Discharge coordination time: Greater than 30 minutes Quality: Safe Use of Opioids Does Pt have an Active Cancer Diagnosis on the Problem List?: No Quality: Stroke Does the patient have a stroke diagnosis?: No Physical Exam Vital Signs: Vital Signs: Last Vital Signs Temp 97.3 F 11/03/22 07:50 Pulse 76 11/03/22 07:50 Resp 18 11/03/22 07:50 BP 151/68 H 11/03/22 07:50 Pulse Ox 97 11/03/22 07:50 O2 Del Method 11/03/22 07:50 BMI result Body Mass Index 23.6 Appearing in no acute distress head is normocephalic atraumatic eyes pupils are PERRLA sclera is anicteric mouth throat mucous membranes are intact and moist neck is supple no lymphadenopathy, no JVD noted lung sounds are clear to auscultation heart regular rate rhythm, clear S1, S2 positive bowel sounds, abdomen is soft, nontender neuro patient is alert,confused chronically DS: Data Data Completed and Pending Labs on day of discharge: Laboratory Results - last 24 hr 11/02/22 11/02/22 11/02/22 13:13 17:01 19:23 Sodium Potassium Chloride Carbon Dioxide Anion Gap BUN Creatinine Estim Creat Clear Calc Estimated GFR POC Glucose 155 H 102 134 H Random Glucose Calcium 11/03/22 11/03/22 11/03/22 00:43 05:25 05:42 Sodium 133 L Potassium 3.9 Chloride 100 Carbon Dioxide 22 Anion Gap 15 BUN 15 Creatinine 0.69 Estim Creat Clear Calc 51.4 Estimated GFR > 60 POC Glucose 100 86 Random Glucose 82 Calcium 8.5 11/03/22 07:25 Sodium Potassium Chloride Carbon Dioxide Anion Gap BUN Creatinine Estim Creat Clear Calc Estimated GFR POC Glucose 89 Random Glucose Calcium Preliminary micro results at discharge 10/31/22 23:19 Blood Culture - Preliminary Blood - Venous No growth after 48 hours. 10/31/22 23:19 Blood Culture - Preliminary Blood - Venous No growth after 48 hours. Discharge Plan Discharge Anticipated Discharge Date/Time: 11/03/22 07:41 Patient Disposition: Xfer Other Discharge Diagnosis: UTI Discharge Medications: New cefuroxime axetil 500 mg tablet 500 mg PO BID Qty: 4 0RF Continued cetirizine 10 mg tablet 1 tab PO DAILY pravastatin 40 mg tablet 1 tab PO BEDTIME alendronate 70 mg tablet 70 mg PO QWEEK Rx Instructions: MO amlodipine 2.5 mg tablet 1 tab PO DAILY@1700 phenytoin sodium extended 100 mg capsule 200 mg PO DAILY glimepiride 2 mg tablet 1 tab PO DAILY metformin 1,000 mg tablet 1 tab PO BID hydrochlorothiazide 25 mg tablet 1 tab PO DAILY losartan 100 mg tablet 1 tab PO DAILY fluticasone propionate 50 mcg/actuation spray,suspension 2 spray intranasal DAILY Discontinued sulfamethoxazole-trimethoprim [Bactrim] 400-80 mg Tablet 1 tab PO BID Rx Instructions: prescribed 10 tablets on 10/27 bid. might have 2 doses left per family member Discharge Orders: Discharge Order (Routine); Ordered 11/03/22 Ordered By: Angelica Puneet Diet: Advance to usual diet Activity on Discharge: As tolerated Stand Alone Forms: Patient Portal Discharge page Care Plan Goals: return back to [facility] Health Concerns: UTI Plan of Treatment: Follow-up with primary care provider as needed Take all medications as prescribed Assessment: Discharge summary
[2022-11-03] MEDS: Phenytoin Sodium Extended 100 MG CAPSULE 200 MG PO (10:22)
[2022-11-03] MEDS: Loratadine 10 MG TABLET PO (10:22)
[2022-11-03] MEDS: 0.9 % Sodium Chloride Flush 3 ML SYRINGE IVFLUSH (10:23)
[2022-11-03] MEDS: Losartan Potassium 50 MG TABLET 100 MG PO (10:23)
--- NOTE | 2022-11-03 13:23 | MHC.CM.PN ---
IMM DELIVERED TO PT'S [facility] AT 9:35AM, COPY TO BE SENT CERTIFIED MAIL PER DISCUSSION, PT RESIDES AT A [facility] AND PLAN IS TO RETURN TODAY, PT HAS ALREADY DISCHARGED HOME W/ STAFF TRANSPORTING AT TIME OF THIS NOTE. CM UPDATED PT'S NURSE WILLIAM [phone], OFFICE [phone] [id number] FAX [phone], D/C SUMMARY FAXED.
== END 2022-11-03 11:53 | disposition other institution (70) | DRG 871 ==
LOC: HO.ED 23:17 → HO.EDOVER 23:46 → HO.S3 11-01 15:13
PROVIDERS: Admitting Provider Student in an Organized Health Care Education/Training Program; Emergency Provider Emergency Medicine; PCP Internal Medicine; Visit Provider Nurse Practitioner Acute Care
DX: A41.9 Sepsis, unspecified organism (principal); G93.41 Metabolic encephalopathy; N39.0 Urinary tract infection, site not specified; E87.1 Hypo-osmolality and hyponatremia; E86.1 Hypovolemia; D64.9 Anemia, unspecified; E11.9 Type 2 diabetes mellitus without complications; E78.2 Mixed hyperlipidemia; G40.909 Epilepsy, unspecified, not intractable, without status epilepticus; I10 Essential (primary) hypertension; Z20.822 Contact with and (suspected) exposure to COVID-19; Z79.51 Long term (current) use of inhaled steroids; Z79.84 Long term (current) use of oral hypoglycemic drugs; Z79.899 Other long term (current) drug therapy
CPT/HCPCS: 36415; 71045; 80048; 80053; 81001; 82248; 82947; 83605; 84484; 85025; 85027; 87040; 87086; 87635; 93005; 99285; J0696; J1650

== ENCOUNTER 2023-02-20 16:25 | Emergency (ER) | payer MEDICARE, MEDICAID, SELFPAY ==
--- NOTE | ~2023-02-20 | XR_ITS ---
EXAMINATION: XR CHEST CLINICAL INFORMATION: COVID. COMPARISON: Chest radiograph 10/31/2022. TECHNIQUE: Frontal view of the chest was obtained. FINDINGS: Stable appearance of the cardiomediastinal silhouette. Minimal diffuse interstitial prominence not significantly changed. No focal airspace opacity. No pleural effusion or pneumothorax. No acute osseous abnormalities. The visualized upper abdomen is within normal limits. XR/XR chest 1V IMPRESSION: No acute cardiopulmonary findings.
[2023-02-20 16:57] VITALS: BP 154/76; BP 177/69; PULSE 92; PULSE 96; RESP 18; TEMP 36.9; O2SAT 95; O2SAT 96; BMI 21.9
--- NOTE | 2023-02-20 17:01 | ECG_ITS ---
Test Reason : SOB Blood Pressure : / mmHG Vent. Rate : 091 BPM Atrial Rate : 091 BPM P-R Int : 156 ms QRS Dur : 058 ms QT Int : 346 ms P-R-T Axes : 043 005 053 degrees QTc Int : 425 ms Normal sinus rhythm Low voltage QRS Cannot rule out Anterior infarct , age undetermined Abnormal ECG When compared with ECG of 31-OCT-2022 22:54, No significant change was found Referred By: Ruthie Rosas Electronically Signed By:VIVIAN HINDS
--- NOTE | 2023-02-20 17:02 | ED_ITS ---
HPI - General Adult General Chief complaint: General Medical Stated complaint: covid Time Seen by Provider: 02/20/23 16:51 Source: EMS Mode of arrival: EMS Limitations: other (non verbal ) History of Present Illness HPI narrative: 76 year old female who is nonverbal at baseline currently residing at retirement with PMHx of non-insulin dependent diabetes, HTN, HLD, seizure disorder who is presenting to the ED with covid-19 for evaluation unclear how many days patient has had sx. This is information obtained from EMS however patient unable to provide me history. Appears nontoxic. Unable to provide me a review of systems. Limited history and review of systems. Later obtained hx from manufacturing group leader tells me that patient has been fatigued and not eating as much for a few days. No URI sx. Related Data Home Medications Medication Instructions Recorded Confirmed alendronate 70 mg tablet 70 mg PO QWEEK 11/01/22 11/01/22 amlodipine 2.5 mg tablet 1 tab PO DAILY@1700 11/01/22 11/01/22 cetirizine 10 mg tablet 1 tab PO DAILY 11/01/22 11/01/22 fluticasone propionate 50 2 spray intranasal DAILY 11/01/22 11/01/22 mcg/actuation nasal spray,suspension glimepiride 2 mg tablet 1 tab PO DAILY 11/01/22 11/01/22 hydrochlorothiazide 25 mg tablet 1 tab PO DAILY 11/01/22 11/01/22 losartan 100 mg tablet 1 tab PO DAILY 11/01/22 11/01/22 metformin 1,000 mg tablet 1 tab PO BID 11/01/22 11/01/22 phenytoin sodium extended 100 mg 200 mg PO DAILY 11/01/22 11/01/22 capsule pravastatin 40 mg tablet 1 tab PO BEDTIME 11/01/22 11/01/22 Previous Rx's Medication Instructions Recorded cefuroxime axetil 500 mg tablet 500 mg PO BID #4 tabs 11/03/22 Allergies Allergy/AdvReac Type Severity Reaction Status Date / Time JULIET Inhibitors Allergy Unknown UNKNOWN Verified 11/01/22 02:03 [JULIET INHIBITORS] Review of Systems Review of Systems: Yes Unobtainable due to mental status PMFSH Past Medical History Attestation statement: The following information was validated with the patient. Source: old records reviewed and nursing notes reviewed Medical History COVID-19 Diabetes Hyperlipidemia Hypertension Intellectual disability Osteoporosis Seizures Swallowing difficulty Social History Social History Household Members: Other Housing Other:: retirement Do you presently have visiting nurse or other home services: No (manufacturing group leader at bedside is unsure) Alcohol intake: never Patient Tobacco Use Status: Never used Tobacco e-Cigarette/Vaping Use: Never Used Advance Directives: No Advance Directives Information Provided: No service: No Current occupational status: disabled Physical Exam ED Vital Signs: Vital Signs - 24 hr 02/20/23 16:57 02/20/23 19:15 Temperature 98.4 F 98.2 F Pulse Rate 92 93 Respiratory Rate 18 26 H Blood Pressure 177/69 H 165/73 H Pulse Oximetry 95 99 Oxygen Delivery Method Room Air Room Air BMI result Body Mass Index 21.9 Vital signs stable Appearance: Alert.? Awake. Moving all extremities. Nonverbal at baseline. Following commands. No acute distress.? Head: Normocephalic, atraumatic, no step-offs or deformities Eyes: Pupils equal, round and reactive to light.? ENT: Pharynx normal.? Neck: Normal inspection.? Neck supple.? CVS: Normal heart rate and rhythm.? Pulses normal.? Respiratory: No respiratory distress.? Breath sounds normal.? Abdomen: Soft and nontender.? Skin: Skin warm and dry.? Normal skin color.? Normal skin turgor.? Extremities: No lower extremity edema.? No calf ttp. 5/5 strength to bilateral upper and lower extremities Back: No midline tenderness, no C-spine tenderness, full range of motion, no CVA tenderness bilaterally Neuro: Alert.? Awake. Moving all extremities. Nonverbal at baseline. Following commands. No acute distress.? Course Reevaluation(s) Reevaluation #1: CBC appears to be around patient's baseline with a normocytic anemia. Chemistry no acute electrolyte abnormalities requiring intervention, patient's BUN is noted to be slightly elevated however this appears to be around patient's baseline, patient tolerating p.o. fluids, will encourage oral hydration. Troponin negative, EKG nonischemic unlikely ACS. COVID positive. X-ray unremarkable. No signs of pneumonia. Patient well appearing vital signs stable. Will discharge home with CDC guidelines. Medical Decision Making Medical Decision Making [facility] Narrative: 1700 77 year old female presents as known covid + for evaluation from retirement nonverbal. Limited history PE benign Likely viral illness. Will rule out pneumonia although unlikely, unlikely pu lmonary embolism. No signs of respiratory distress. Patient comfortable appearing. Will rule out electrolyte abnormalities. Mentation at baseline per report. Plan labs, imaging. Differential Diagnosis Differential Diagnoses: The differential diagnosis associated with the presentation includes Likely viral illness. Will rule out pneumonia although unlikely, unlikely pulmonary embolism. No signs of respiratory distress. Patient comfortable appearing. Will rule out electrolyte abnormalities. Mentation at baseline per report. Admission/Observation Consideration of admission/observation: Escalation of care including admission/observation considered unlikely Lab Data [facility] Lab Attestation statement: I reviewed the patient's lab results. 02/20/23 17:46 02/20/23 17:46 Labs: Lab Results 02/20/23 02/20/23 02/20/23 Range/Units 17:46 17:46 17:46 WBC 5.1 (4.8-10.8) X10*3/uL RBC 3.71 L (4.20-5.50) X10*6/uL Hgb 10.8 L (12.0-16.0) g/dl Hct 32.9 L (37.0-47.0) % MCV 88.7 (80.0-98.0) fL MCH 29.1 (27.0-33.0) pg MCHC 32.8 (31.0-35.0) g/dl RDW 12.0 (11.0-16.0) % Plt Count 253 D (160-400) X10*3/uL MPV 9.7 (9.4-12.3) fL Immature Gran % (Auto) 0.2 (0.0-0.4) % Neut % (Auto) 43.4 L (45-73) % Lymph % (Auto) 44.9 H (20-40) % [place] % (Auto) 9.5 (2-11) % Eos % (Auto) 1.6 (0-4) % Baso % (Auto) 0.4 (0-2) % Lymph # (Auto) 2.3 (1.2-4.9) X10*3/uL [place] # (Auto) 0.5 (0.1-1.2) X10*3/uL Eos # (Auto) 0.1 (0.0-0.4) X10*3/uL Baso # (Auto) 0.0 (0.0-0.2) X10*3/uL Abs Immat Gran (auto) 0.01 (0.00-0.03) X10*3/uL Absolute Neuts (auto) 2.2 (2.0-8.3) x10*3/uL Absolute Nucleated RBC 0.000 (0.0-0.012) X10*3/uL Nucleated RBC % (auto) 0.0 (0.0-0.2) /100WBC Sodium 136 (135-145) mmol/L Potassium 4.9 D (3.3-5.1) mmol/L Chloride 101 (96-108) mmol/L Carbon Dioxide 24 (22-29) mmol/L Anion Gap 16 (12-20) BUN 23 H (9-16) mg/dL Creatinine 0.76 (0.5-1.4) mg/dL Estim Creat Clear Calc 43.1 Estimated GFR > 60 Random Glucose 112 (60-115) mg/dL Calcium 9.5 D (8.4-10.2) mg/dL Magnesium 1.6 (1.6-2.6) mg/dL Total Bilirubin 0.2 (0.0-1.0) mg/dL AST 18 (5-31) U/L ALT 13 (0-31) U/L Alkaline Phosphatase 101 (39-117) U/L Troponin I High Sens < 2.7 D (<3.5-17.0) ng/L B-Natriuretic Peptide (<100) pg/mL Total Protein 7.2 (6.5-8.0) g/dL Albumin 3.6 (3.5-5.0) g/dL COVID-19 (GIL) (Negative) COVID-19 Clin Com 02/20/23 02/20/23 Range/Units 17:46 17:46 WBC (4.8-10.8) X10*3/uL RBC (4.20-5.50) X10*6/uL Hgb (12.0-16.0) g/dl Hct (37.0-47.0) % MCV (80.0-98.0) fL MCH (27.0-33.0) pg MCHC (31.0-35.0) g/dl RDW (11.0-16.0) % Plt Count (160-400) X10*3/uL MPV (9.4-12.3) fL Immature Gran % (Auto) (0.0-0.4) % Neut % (Auto) (45-73) % Lymph % (Auto) (20-40) % [place] % (Auto) (2-11) % Eos % (Auto) (0-4) % Baso % (Auto) (0-2) % Lymph # (Auto) (1.2-4.9) X10*3/uL [place] # (Auto) (0.1-1.2) X10*3/uL Eos # (Auto) (0.0-0.4) X10*3/uL Baso # (Auto) (0.0-0.2) X10*3/uL Abs Immat Gran (auto) (0.00-0.03) X10*3/uL Absolute Neuts (auto) (2.0-8.3) x10*3/uL Absolute Nucleated RBC (0.0-0.012) X10*3/uL Nucleated RBC % (auto) (0.0-0.2) /100WBC Sodium (135-145) mmol/L Potassium (3.3-5.1) mmol/L Chloride (96-108) mmol/L Carbon Dioxide (22-29) mmol/L Anion Gap (12-20) BUN (9-16) mg/dL Creatinine (0.5-1.4) mg/dL Estim Creat Clear Calc Estimated GFR Random Glucose (60-115) mg/dL Calcium (8.4-10.2) mg/dL Magnesium (1.6-2.6) mg/dL Total Bilirubin (0.0-1.0) mg/dL AST (5-31) U/L ALT (0-31) U/L Alkaline Phosphatase (39-117) U/L Troponin I High Sens (<3.5-17.0) ng/L B-Natriuretic Peptide 11 (<100) pg/mL Total Protein (6.5-8.0) g/dL Albumin (3.5-5.0) g/dL COVID-19 (GIL) Positive A (Negative) COVID-19 Clin Com See Note Independent Interpretation I performed an independent interpretation of an: EKG (Ventricular rate of 91, TX normal, QRS normal, QT/QTC normal. EKG with normal sinus rhythm and low voltage. No ST elevations or inversions concerning for acute ischemia.) and Plain X-Ray Radiology Impression Discussion of test interpretation with radiology: I have reviewed the radiologist's reading. Core Measures AMI core measures followed: Yes Measure exclusions: not indicated Critical Care Time Critical Care Time Critical Care Time: No Discharge Plan Discharge Clinical Impression: COVID-19, Physical deconditioning Patient Disposition: Home, Self-Care Instructions: Fatigue (ED) Additional Instructions: Take your medications as prescribed. If you were prescribed antibiotics today, it is important that you take your medication to their entirety, do not skip any doses, do not finish them early. Today you tested positive for COVID-19. Take Ibuprofen or Tylenol as needed for fevers or body aches. Quarantine for 5 days and ensure you wear a mask. After 5 days you should wear a mask for 5 days after that. Practice social distancing and good hand hygiene. Drink plenty of fluids. Follow-up with your primary care provider this week. Return to the emergency department with new or worsening symptoms. In case of emergency call 911 You can purchase a pulse oximeter from your local pharmacy or grocery store, and monitor your oxygen saturation if it goes below 94% you should return to the emergency department for further evaluation XR/XR chest 1V IMPRESSION: No acute cardiopulmonary findings. Prescriptions: No Action cetirizine 10 mg tablet 1 tab PO DAILY pravastatin 40 mg tablet 1 tab PO BEDTIME alendronate 70 mg tablet 70 mg PO QWEEK Rx Instructions: MO amlodipine 2.5 mg tablet 1 tab PO DAILY@1700 phenytoin sodium extended 100 mg capsule 200 mg PO DAILY glimepiride 2 mg tablet 1 tab PO DAILY metformin 1,000 mg tablet 1 tab PO BID hydrochlorothiazide 25 mg tablet 1 tab PO DAILY losartan 100 mg tablet 1 tab PO DAILY fluticasone propionate 50 mcg/actuation spray,suspension 2 spray intranasal DAILY cefuroxime axetil 500 mg tablet 500 mg PO BID Qty: 4 0RF Referrals: Antoine Dominguez III, MD [Primary Care Provider] - 2 days Stand Alone Forms: Work/School Release
[2023-02-20 17:50] LABS: MANUAL DIFF FLAG NO
[2023-02-20 17:53] LABS: Basophils Percent Auto 0.4 % (0-2); Eosinophils Absolute Auto 0.1 X10*3/uL (0.0-0.4); Eosinophils Percent Auto 1.6 % (0-4); Hematocrit 32.9 % (37.0-47.0); Hemoglobin 10.8 g/dl (12.0-16.0); Imm Gran Abs Auto 0.01 X10*3/uL (0.00-0.03); Imm Gran Pct Auto 0.2 % (0.0-0.4); Lymphocytes Absolute Auto 2.3 X10*3/uL (1.2-4.9); Lymphocytes Percent Auto 44.9 % (20-40); Mean Corpuscular HGB Conc 32.8 g/dl (31.0-35.0); Mean Corpuscular Hemoglobin 29.1 pg (27.0-33.0); Mean Corpuscular Volume 88.7 fL (80.0-98.0); Mean Platelet Volume 9.7 fL (9.4-12.3); Monocytes Absolute Auto 0.5 X10*3/uL (0.1-1.2); Monocytes Percent Auto 9.5 % (2-11); Neutrophils Absolute Auto 2.2 x10*3/uL (2.0-8.3); Neutrophils Percent Auto 43.4 % (45-73); Platelet Count 253 X10*3/uL (160-400); Red Blood Count 3.71 X10*6/uL (4.20-5.50); White Blood Count 5.1 X10*3/uL (4.8-10.8)
[2023-02-20 18:09] LABS: COVID-19 Test Positive (Negative); IDNOW Serial# BCCEAD1C
[2023-02-20 18:20] LABS: B Type Natriuretic Peptide 11 pg/mL (<100)
[2023-02-20 18:56] LABS: Troponin-I High Sensitivity < 2.7 ng/L (<3.5-17.0)
[2023-02-20 19:15] VITALS: BP 165/73; PULSE 93; RESP 26; TEMP 36.8; O2SAT 99
[2023-02-20 19:44] LABS: Alanine Aminotransferase 13 U/L (0-31); Albumin Level 3.6 g/dL (3.5-5.0); Alkaline Phosphatase 101 U/L (39-117); Anion Gap 16 (12-20); Aspartate Amino Transferase 18 U/L (5-31); Bilirubin Total 0.2 mg/dL (0.0-1.0); Blood Urea Nitrogen 23 mg/dL (9-16); Calcium 9.5 mg/dL (8.4-10.2); Carbon Dioxide 24 mmol/L (22-29); Chloride 101 mmol/L (96-108); Creatinine Clr Calc Pharmacy 43.1; Estimated Glomerular Filt Rate > 60; Glucose Random 112 mg/dL (60-115); Magnesium 1.6 mg/dL (1.6-2.6); Potassium 4.9 mmol/L (3.3-5.1); Sodium 136 mmol/L (135-145); Total Protein 7.2 g/dL (6.5-8.0)
--- NOTE | 2023-02-20 20:10 | PC.NURSE ---
pt is georgian speaking only. has staff from facility at bedside who reports that pt had vomitted on thursday but was well thereafter. pt endorses no complaints at moment. denies pain/dyspnea/nausea. provided warm blankets. waiting for dispo.
== END 2023-02-20 23:00 | disposition home or self-care (01) ==
PROVIDERS: Physician Assistant; Emergency Provider Internal Medicine; PCP Internal Medicine
DX: U07.1 COVID-19 (principal); R06.02 Shortness of breath; Z79.899 Other long term (current) drug therapy
CPT/HCPCS: 36415; 71045; 80053; 83735; 83880; 84484; 85025; 87635; 93005; 99283

== ENCOUNTER 2023-04-05 10:09 | Emergency (ER) | payer MEDICARE, MEDICAID, SELFPAY ==
--- NOTE | ~2023-04-05 | CT_ITS ---
EXAMINATION: CT HEAD WITHOUT CONTRAST CT CERVICAL SPINE WITHOUT CONTRAST CLINICAL INFORMATION: [age]-year-old female with headache and neck pain following trauma COMPARISON: 07/16/2022 TECHNIQUE: CT of the head and cervical spine were performed without intravenous contrast. Multiplanar reformats were rendered and reviewed. This CT examination was performed using dose optimization techniques as appropriate, variously including the following: *Automated exposure control *Adjustment of mA and/or kV according to patient size (this includes techniques or standardized protocols for targeted exams where dose is matched to indication/reason for exam; i.e. extremities or head) *Use of iterative reconstruction technique DLP: 848 mGy-cm. FINDINGS: CT head: No intracranial hemorrhage, large infarction, or mass lesion is seen. No extra-axial collection is appreciated. The ventricles are normal in size and configuration without evidence of hydrocephalus. There are mild patchy periventricular white matter changes as a sequela of microangiopathy The visualized paranasal sinuses and mastoid air cells are clear. There is hyperostosis interna and there is stable calcified left parietal extra-axial mass measured 1.7 x 1.2 cm and consistent with the appearance of calcified meningioma. There is left frontal cephalohematoma related to fresh trauma. There is no associated fractures. There is mild mucosal thickening of ethmoidal sinuses, less prominent sphenoidal sinuses. Frontal sinuses are poorly developed. Mastoids are well aerated. CT cervical spine: There is no evidence of fractures but there are changes of degenerative spondylosis with narrowing of C6-C7 and marginal spurring at the level of C6-C7 with bridging osteophytes formation. The paraspinal soft tissues are within normal limits. The partially imaged lung apices are clear. CT/CT cervical spine wo IV con IMPRESSION: CT HEAD: No acute intracranial finding. Sequela of microangiopathy. Stable left parietal calcified meningioma. Left frontal cephalohematoma. CT CERVICAL SPINE: No cervical spine fracture or traumatic malalignment identified. Degenerative spondylosis more prominent at the level of C6-C7.
[2023-04-05 10:15] VITALS: BP 177/71; PULSE 103; O2SAT 98
[2023-04-05 10:18] VITALS: BP 156/49; PULSE 96; RESP 20; TEMP 36.4; O2SAT 98; BMI 20.3
--- NOTE | 2023-04-05 10:22 | ED_ITS ---
HPI - Fall General Chief Complaint: Fall Stated Complaint: Fall w/ head strike, [place], No loc per EMS Source: EMS Mode of arrival: EMS Limitations: other ( intellectual disability) History of Present Illness HPI Narrative: this is a 77 years old female who is a resident of a penitentiary, she presented to the emergency department brought by ambulance after she fell from the wheelchair she sustained head injury. There is no vomiting no loss of consciousness according to the staff patient is unable to give any history because the intellectual disability she has a history of hypertension [id number] MD complaint: fall Onset (ago): hour(s) (1) Fall from: wheelchair Fall witnessed: yes, by living facility staff Place fall occurred: other (penitentiary) Loss of consciousness: none Prolonged down time: no Symptoms prior to fall: none Related Data Home Medications Medication Instructions Recorded Confirmed alendronate 70 mg tablet 70 mg PO QWEEK 11/01/22 11/01/22 amlodipine 2.5 mg tablet 1 tab PO DAILY@1700 11/01/22 11/01/22 cetirizine 10 mg tablet 1 tab PO DAILY 11/01/22 11/01/22 fluticasone propionate 50 2 spray intranasal DAILY 11/01/22 11/01/22 mcg/actuation nasal spray,suspension glimepiride 2 mg tablet 1 tab PO DAILY 11/01/22 11/01/22 hydrochlorothiazide 25 mg tablet 1 tab PO DAILY 11/01/22 11/01/22 losartan 100 mg tablet 1 tab PO DAILY 11/01/22 11/01/22 metformin 1,000 mg tablet 1 tab PO BID 11/01/22 11/01/22 phenytoin sodium extended 100 mg 200 mg PO DAILY 11/01/22 11/01/22 capsule pravastatin 40 mg tablet 1 tab PO BEDTIME 11/01/22 11/01/22 Previous Rx's Medication Instructions Recorded cefuroxime axetil 500 mg tablet 500 mg PO BID #4 tabs 11/03/22 Allergies Allergy/AdvReac Type Severity Reaction Status Date / Time JULIET Inhibitors Allergy Unknown UNKNOWN Verified 11/01/22 02:03 [JULIET INHIBITORS] Review of Systems Eyes: Eyes: Reports no additional eye complaints ENT: Reports system reviewed and no additional complaints, except as documented Cardiovascular: Cardiovascular: Reports no additional cardiovascular complaints PMFSH Past Medical History Medical History Adult failure to thrive COVID-19 Diabetes Hyperlipidemia Hypertension Intellectual disability Osteoporosis Seizures Swallowing difficulty Social History Social History Household Members: Other Housing Other:: penitentiary Do you presently have visiting nurse or other home services: No (group leader wafer polishing at bedside is unsure) Alcohol intake: never Patient Tobacco Use Status: Never used Tobacco e-Cigarette/Vaping Use: Never Used Advance Directives: No Advance Directives Information Provided: No service: No Current occupational status: disabled Physical Exam Vital Signs: Vital Signs: Last Vital Signs Temp 97.6 F 04/05/23 10:18 Pulse 94 04/05/23 13:03 Resp 16 04/05/23 13:03 BP 168/69 H 04/05/23 13:03 Pulse Ox 98 04/05/23 13:03 O2 Del Method Room Air 04/05/23 13:03 BMI result Body Mass Index 20.3 Const: General: cooperative Nutritional Appearance: well nourished Orientation/consciousness: patient oriented x3 HEENT: Other: abrasion left forehead Ears: hearing grossly normal bilaterally General nose exam: Normal external nose present Mouth: Normal oral and palatal mucosa present Throat: Yes posterior oropharynx normal Neck: Neck: Yes normal visual inspection and Yes full ROM Chest: Chest palpation & inspection: normal inspection of the chest Resp: Effort & Inspection: normal respiratory effort Auscultation: clear to auscultation bilaterally Cardio: Jugular venous distension: no JVD Rate: regular rate Rhythm: regular rhythm GI: Inspection: Yes normal to inspection Palpation (GI): Soft to palpation Skin: General skin exam: no rashes or lesions noted and elasticity normal Rashes: no rashes Neuro: General: patient oriented x3 Course Reevaluation(s) Reevaluation #1: imaging negative remain stable will d/c home Medical Decision Making Medical Decision Making MDM Narrative: she presented to ED complaining of fall with head injury will obtain imaging Differential Diagnosis Differential Diagnoses: The differential diagnosis associated with the presentation includes subdural hematoma /epidural hematoma/concussion Admission/Observation Consideration of admission/observation: Escalation of care including admission/observation considered Independent Interpretation I performed an independent interpretation of an: CT Scan Interpretation: no subdural,no fx Radiology Impression Discussion of test interpretation with radiology: I have reviewed the radiologist's reading. Radiologist Impression: ening of ethmoidal sinuses, less prominent sphenoidal sinuses. Frontal sinuses are poorly developed. Mastoids are well aerated. CT cervical spine: There is no evidence of fractures but there are changes of degenerative spondylosis with narrowing of C6-C7 and marginal spurring at the level of C6-C7 with bridging osteophytes formation. The paraspinal soft tissues are within normal limits. The partially imaged lung apices are clear. CT/CT head/brain wo IV con IMPRESSION: CT HEAD: No acute intracranial finding. Sequela of microangiopathy. Stable left parietal calcified meningioma. Left frontal cephalohematoma. ? CT CERVICAL SPINE: No cervical spine fracture or traumatic malalignment identified. Degenerative spondylosis more prominent at the level of C6-C7. ? Dictated By: Arian Cao MD Signed By: <Electronically signed by Arian Cao MD in OV> 04/05/23 1240 DD/ 1210 TD/TT:? 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 History obtained from or confirmed by: Other (penitentiary staff) Chronic Conditions intellectual disability Discharge Plan Discharge Clinical Impression: Head injury Patient Disposition: Home, Self-Care Instructions: Head Injury (ED) Prescriptions: No Action cetirizine 10 mg tablet 1 tab PO DAILY pravastatin 40 mg tablet 1 tab PO BEDTIME alendronate 70 mg tablet 70 mg PO QWEEK Rx Instructions: MO amlodipine 2.5 mg tablet 1 tab PO DAILY@1700 phenytoin sodium extended 100 mg capsule 200 mg PO DAILY glimepiride 2 mg tablet 1 tab PO DAILY metformin 1,000 mg tablet 1 tab PO BID hydrochlorothiazide 25 mg tablet 1 tab PO DAILY losartan 100 mg tablet 1 tab PO DAILY fluticasone propionate 50 mcg/actuation spray,suspension 2 spray intranasal DAILY cefuroxime axetil 500 mg tablet 500 mg PO BID Qty: 4 0RF Referrals: Antoine Dominguez III, MD [Primary Care Provider] - 2 days Interventions: ED Discharge Assessment Last Done: 04/05/23 14:39 Discharge Date/Time: 04/05/23 14:39 Print Language: Faroese
--- NOTE | 2023-04-05 10:23 | PC.NURSE ---
patient brought in by ems with staff member from [facility], pt was reaching for a slipper on the floor in her wheelchair when she fell forward and hit her head. pt has bump on the left side of her head, patient states she has pain in her head 10/10. patient awaiting ct scan
[2023-04-05 13:03] VITALS: BP 168/69; PULSE 94; RESP 16; O2SAT 98
== END 2023-04-05 14:39 | disposition home or self-care (01) ==
PROVIDERS: Emergency Provider Emergency Medicine; PCP Internal Medicine
DX: S09.90XA Unspecified injury of head, initial encounter (principal); R51.9 Headache, unspecified; M54.2 Cervicalgia; W01.0XXA Fall on same level from slipping, tripping and stumbling without subsequent striking against object, initial encounter; Y93.9 Activity, unspecified; Y92.9 Unspecified place or not applicable; Y99.9 Unspecified external cause status; Z79.899 Other long term (current) drug therapy
CPT/HCPCS: 70450; 72125; 99284

== ENCOUNTER 2023-12-25 15:59 | Emergency (ER) | payer MEDICARE, MEDICAID, SELFPAY ==
--- NOTE | ~2023-12-25 | CT_ITS ---
EXAMINATION: CT HEAD WITHOUT CONTRAST CLINICAL INFORMATION: Fall. COMPARISON: CT head dated 04/05/2023. TECHNIQUE: Contiguous axial imaging was performed from the skull base to vertex without intravenous administration of contrast. This CT examination was performed using dose optimization techniques as appropriate, variously including the following: *Automated exposure control *Adjustment of mA and/or kV according to patient size (this includes techniques or standardized protocols for targeted exams where dose is matched to indication/reason for exam; i.e. extremities or head) *Use of iterative reconstruction technique DLP: 585 mGy-cm FINDINGS: There is no acute intracranial hemorrhage. There is no evidence of acute/subacute cerebral or cerebellar infarction. There is no midline shift or mass effect. There is no extra-axial fluid collection. The ventricles are normal in size. There is mild microvascular ischemic change. A calcified lesion along the inner table of the left parietal calvarium is unchanged in size and likely represents a calcified meningioma. The ocular lenses are surgically absent. The calvarium is intact. The mastoid air cells are well aerated. There is mild circumferential mucosal thickening throughout the left maxillary sinus. There is scattered ethmoid air cell mucosal disease. There is frothy material throughout the sphenoid sinuses bilaterally. CT/CT head/brain wo IV con IMPRESSION: No acute intracranial abnormality. Mild microvascular ischemic change. Paranasal sinus disease as described. Acute sphenoid sinusitis is not excluded.
--- NOTE | ~2023-12-25 | XR_ITS ---
EXAMINATION: XR PELVIS CLINICAL INFORMATION: Fall COMPARISON: None TECHNIQUE: Single frontal view. FINDINGS: There is no radiographic evidence of acute fracture or dislocation. No osteolytic or osteoblastic lesions. Hip joints are normal. Adjacent pubic rami are intact. Surrounding soft tissue is unremarkable. Excess amount of stool in the rectum suggests possible fecal impaction. XR/XR pelvis 1-2V IMPRESSION: 1. No radiographic evidence of acute fracture. 2. Excess amount of stool in the rectum suggests possible fecal impaction.
--- NOTE | ~2023-12-25 | CT_ITS ---
EXAMINATION: CT CERVICAL SPINE WITHOUT CONTRAST CLINICAL INFORMATION: Fall. COMPARISON: CT cervical spine dated 04/05/2023. TECHNIQUE: Noncontrast CT of the cervical spine was performed. This CT examination was performed using dose optimization techniques as appropriate, variously including the following: *Automated exposure control *Adjustment of mA and/or kV according to patient size (this includes techniques or standardized protocols for targeted exams where dose is matched to indication/reason for exam; i.e. extremities or head) *Use of iterative reconstruction technique DLP: 230 mGy-cm FINDINGS: Cervical spinal alignment is anatomic in the sagittal projection. The facet joints demonstrate anatomic alignment bilaterally. Vertebral body heights are maintained. There is severe degenerative disc disease at C6-C7 characterized by severe intervertebral disc space narrowing, severe endplate sclerosis, and large anterior bridging osteophytes. There is a disc osteophyte complex at this level which indents the ventral thecal sac. There is multilevel facet arthropathy. The C1-C2 relationship is anatomic. The dens is intact. Prevertebral soft tissue is normal in appearance. The paraspinal soft tissue is normal in appearance. There is no acute cervical spine fracture. The lung apices are clear. Thyroid gland is normal in appearance. CT/CT cervical spine wo IV con IMPRESSION: No acute osseous cervical spine abnormality. Degenerative disease, most pronounced at C6-C7 as described. Fleischner guidelines were followed.
[2023-12-25 16:07] VITALS: BP 212/90; PULSE 70; O2SAT 95
[2023-12-25 16:14] VITALS: BP 170/94; PULSE 92; RESP 18; TEMP 36.8; O2SAT 97; BMI 22.1
[2023-12-25 16:24] LABS: Glucose, Whole Blood 99 mg/dL (60-115)
--- NOTE | 2023-12-25 16:37 | ED.FALL ---
HPI - Fall General Chief Complaint: Fall Stated Complaint: witnessed fall from wheelchair Time Seen by Provider: 12/25/23 16:37 Source: patient and other (home care rn) Mode of arrival: EMS History of Present Illness HPI Narrative: Patient with history of diabetes hypertension seizure chair walk with 1 assist mostly stays on the wheelchair was trying to get up lost balance and fell on her left side at a day program witnessed by the staff complaining of pain in the left forehead and left hip Related Data Home Medications ?Medication ?Instructions ?Recorded ?Confirmed alendronate 70 mg tablet 70 mg PO QWEEK 11/01/22 11/01/22 amlodipine 2.5 mg tablet 1 tab PO DAILY@1700 11/01/22 11/01/22 cetirizine 10 mg tablet 1 tab PO DAILY 11/01/22 11/01/22 fluticasone propionate 50 2 spray intranasal DAILY 11/01/22 11/01/22 mcg/actuation nasal spray,suspension glimepiride 2 mg tablet 1 tab PO DAILY 11/01/22 11/01/22 hydrochlorothiazide 25 mg tablet 1 tab PO DAILY 11/01/22 11/01/22 losartan 100 mg tablet 1 tab PO DAILY 11/01/22 11/01/22 metformin 1,000 mg tablet 1 tab PO BID 11/01/22 11/01/22 phenytoin sodium extended 100 mg 200 mg PO DAILY 11/01/22 11/01/22 capsule pravastatin 40 mg tablet 1 tab PO BEDTIME 11/01/22 11/01/22 Previous Rx's ?Medication ?Instructions ?Recorded cefuroxime axetil 500 mg tablet 500 mg PO BID #4 tabs 11/03/22 Allergies Allergy/AdvReac Type Severity Reaction Status Date / Time JULIET Inhibitors Allergy Unknown UNKNOWN Verified 12/25/23 16:15 [JULIET INHIBITORS] Review of Systems Review of Systems: Yes all other systems are reviewed and are negative PMF Past Medical History Medical History Adult failure to thrive Swallowing difficulty COVID-19 Seizures Osteoporosis Hyperlipidemia Hypertension Diabetes Intellectual disability Social History Social History Household Members: Other Housing Other:: detention Do you presently have visiting nurse or other home services: No (group insurance specialist at bedside is unsure) Alcohol intake: never Patient Tobacco Use Status: Never used Tobacco e-Cigarette/Vaping Use: Never Used Advance Directives: No Advance Directives Information Provided: Yes Do you have a plan to hurt others: No Plan service: No Current occupational status: disabled Physical Exam Vital Signs: Vital Signs: Last Vital Signs Temp 98.4 F 12/25/23 19:34 Pulse 95 12/25/23 19:34 Resp 18 12/25/23 19:34 BP 175/68 H 12/25/23 19:34 Pulse Ox 97 12/25/23 19:34 O2 Del Method Room Air 12/25/23 19:34 BMI result Body Mass Index 22.1 Appearance: Alert. Oriented X3. No acute distress. Eyes: PERRLA, No Nystagmus ENT: Pharynx normal. Oral Mucosa moist soft tissue swelling left forehead Neck: Normal inspection. Neck supple. CVS: Normal heart rate and rhythm. Pulses normal. Respiratory: No respiratory distress. Equal air entry bilateral, no wheezing/rales/rhonchi Abdomen: Soft and nontender. Bowel sounds are present, no mass palpable, no CVA tenderness Skin: Skin warm and dry. Normal skin color. Normal skin turgor. Extremities: No lower extremity edema. No calf tenderness left hip tenderness good range of movement Neuro: Oriented X 3. No motor deficit. No sensory deficit.No cerebellar signs , cranial nerves II-XII intact Medical Decision Making Medical Decision Making [facility] Narrative: Patient is status post mechanical fall with stable vitals CT scan of the C-spine and head negative for acute pelvis x-ray also negative for fracture discharge patient back to detention Differential Diagnosis Differential Diagnoses: The differential diagnosis associated with the presentation includes Subdural bleed/subarachnoid bleed/cervical fracture Lab Data [facility] Lab Attestation statement: I reviewed the patient's lab results. Labs: Lab Results 12/25/23 Range/Units 16:21 POC Glucose 99 (60-115) mg/dL Independent Interpretation I performed an independent interpretation of an: CT Scan Radiology Impression Discussion of test interpretation with radiology: I have reviewed the radiologist's reading. Discharge Plan Discharge Clinical Impression: Fall Patient Disposition: Home, Self-Care Instructions: Fall Prevention for Older Adults (ED) Additional Instructions: Care and cautions as advised Your head CT and cervical spine CT and x-ray of the pelvis negative for acute Prescriptions: No Action cetirizine 10 mg tablet 1 tab PO DAILY pravastatin 40 mg tablet 1 tab PO BEDTIME alendronate 70 mg tablet 70 mg PO QWEEK Rx Instructions: MO amlodipine 2.5 mg tablet 1 tab PO DAILY@1700 phenytoin sodium extended 100 mg capsule 200 mg PO DAILY glimepiride 2 mg tablet 1 tab PO DAILY metformin 1,000 mg tablet 1 tab PO BID hydrochlorothiazide 25 mg tablet 1 tab PO DAILY losartan 100 mg tablet 1 tab PO DAILY fluticasone propionate 50 mcg/actuation spray,suspension 2 spray intranasal DAILY cefuroxime axetil 500 mg tablet 500 mg PO BID Qty: 4 0RF Interventions: ED Discharge Assessment Last Done: 12/25/23 19:34 Discharge Date/Time: 12/25/23 19:46 Print Language: Upper Sorbian
[2023-12-25 18:35] VITALS: BP 175/68; PULSE 95; RESP 18; TEMP 36.9; O2SAT 97
[2023-12-25 19:34] VITALS: BP 175/68; PULSE 95; RESP 18; TEMP 36.9; O2SAT 97
== END 2023-12-25 19:46 | disposition home or self-care (01) ==
PROVIDERS: Emergency Provider Internal Medicine; PCP Internal Medicine
DX: M25.552 Pain in left hip (principal); Z91.81 History of falling; E11.9 Type 2 diabetes mellitus without complications; I10 Essential (primary) hypertension; E78.5 Hyperlipidemia, unspecified; Z79.02 Long term (current) use of antithrombotics/antiplatelets; Z79.84 Long term (current) use of oral hypoglycemic drugs; Z79.899 Other long term (current) drug therapy
CPT/HCPCS: 70450; 72125; 72170; 82947; 99284

== ENCOUNTER 2025-07-11 12:30 | Outpatient (AMB) | payer MEDICARE, MEDICAID, SELFPAY ==
--- OUTSIDE RECORDS SUMMARY | 2025-05-02 05:30 | XMS_ITS ---
Author Organization [facility] satish [place] Address [address] [place] [id number] Care Team Providers Care Area Field Person Name Role Phone David Dominguez MD Primary Care Provider Pat Shields Unavailable [phone] Encounters Encounter Location Date Provider Diagnosis [facility] [address] [place] [address] 05/02/2025 Pat Figueroa Plan Of Treatment No Information Progress Notes * Raegan MCLEAN GDOB:1945 (79 yo F)Acc No.[id number]:05/02/2025 Progress Notes Patient: Raegan JOHNSON Provider: Abel Figueroa DPM :1945 A ge:79 Y S ex:Female Date:05/02/2025 Address:[address] [place], [place] [id number] Pcp:David Dominguez MD Subjective: * Chief Complaints: * * Medical History: Objective: * Vitals: Assessment: Plan: * Treatment: * Images: * The named appointment provid er may or may not be the originator of this progress note, and it is not deemed complete until electronically signed by the appointment provider. Sign off status: Pending * Provider: Abel Figueroa DPM Date: 0 05/02/2025 Generated for Khalida jaime/Wilman/eTransmitting on: 09/10/2024 02:20 PM EST
--- NOTE | 2025-07-11 12:45 | MHC.OFFVIS ---
Intake Visit Reasons: Controlled Type 2 Diabetes mellitus w/Complication Intake Note: Raegan is a 79 year old female who presents today as a new patient for a diabetic foot exam. Patient glucose was checked this morning and it read 117. Patient denies experiencing numbness or tingling in her feet and she has no previous history of wounds to her feet. Patient case worked notices that patient has swelling and discoloration on her bilateral calf and foot Allergies JULIET Inhibitors (JULIET INHIBITORS) Allergy (Unknown, Verified 07/11/25 12:50) UNKNOWN HPI Comments Details: The patient is an 79-year-old female with a past medical history as seen below presenting for a diabetic foot exam. Patient was accompanied by her director of managed services who provided the history. Patient is a poor historian. Patient has a recent blood sugar level of 117 mg/dL. She primarily uses a wheelchair at home but walks with a walker during her program sessions 3 times a week. She wears sneakers during these sessions and slippers at home. The director of managed services states they have noticed when her legs are not elevated there is discoloration noted to the legs. They deny any recent pedal injuries. Denies any other pedal concerns. [facility] Medical History (Updated 07/11/25 @ 17:26 by Светлана Naranjo DPM) Pes planus Tinea unguium PVD (peripheral vascular disease) Varicose veins of both lower extremities Adult failure to thrive Swallowing difficulty COVID-19 Seizures Osteoporosis Hyperlipidemia Hypertension Diabetes Intellectual disability Social History Household Members: Other Housing Other:: [facility] Do you presently have visiting nurse or other home services: No (group dynamics instructor at bedside is unsure) Alcohol intake: never Patient Tobacco Use Status: Never used Tobacco e-Cigarette/Vaping Use: Never Used service: No Current occupational status: disabled Review of Systems Const Details: - Vascular: Reports bilateral lower extremity color changes when legs are not elevated. - Endocrine: Reports blood glucose level of 117 mg/dL. All systems reviewed & are unremarkable except as noted in HPI and below Physical Exam Extrem Other: B/L LE Focused Physical Exam: Derm: Thickened and slightly discolored toenails x10. No open lesions, abrasions, or wounds noted. Mottling of skin noted to B/L LEs. No maceration noted. No hyperkeratotic areas noted. No clinical signs of infections noted. Vasc: DP pulses palpable. PT pulses nonpalpable. CFT > 3 secs. Temp gradient warm to cold. Pedal hair absent. Varicosities noted. Rubor on dependency and blanching upon elevation. Mild nonpitting edema noted. Neuro: Unable to fully assess status due to limited verbal communication. MSK: Unable to fully assess due to limited verbal communication. Patient seen in a wheelchair. Pes planus foot type. Office Procedures Diabetic Foot Exam G9226 - Diabetic Foot Exam Results Reviewed Results Reviewed: Most recent blood glucose - 117 mg/dL. Assessment & Plan Assessment & Plan (1) Diabetes: Code(s): E11.9 - Type 2 diabetes mellitus without complications Category: Medical Qualifiers: Diabetes mellitus type: type 2 Diabetes mellitus complication status: with circulatory complication Qualified Code(s): E11.51 - Type 2 diabetes mellitus with diabetic peripheral angiopathy without gangrene (2) Varicose veins of both lower extremities: Code(s): I83.93 - Asymptomatic varicose veins of bilateral lower extremities Category: Medical Qualifiers: Varicose vein complication: inflammation Qualified Code(s): I83.11 - Varicose veins of right lower extremity with inflammation; I83.12 - Varicose veins of left lower extremity with inflammation (3) PVD (peripheral vascular disease): Code(s): I73.9 - Peripheral vascular disease, unspecified Category: Medical (4) Pes planus: Code(s): M21.40 - Flat foot [pes planus] (acquired), unspecified foot Category: Medical Qualifiers: Laterality: bilateral Qualified Code(s): M21.41 - Flat foot [pes planus] (acquired), right foot; M21.42 - Flat foot [pes planus] (acquired), left foot (5) Tinea unguium: Code(s): B35.1 - Tinea unguium Category: Medical Plan Patient was informed and verbally consented to the use of an ambient scribe for clinic note documentation during this visit. I discussed with the patient and her home visit field care manager the likelihood of a vascular issue contributing to the discoloration to the lower extremities. I recommended a referral to a vascular specialist for further evaluation. We also discussed the importance of diabetic foot care, including the use of diabetic shoes and regular nail trimming. - Referred patient to Vascular. - Provided prescription for diabetic shoes and inserts. - Recommend patient wear supportive shoe gear. - Recommend daily monitoring of the lower extremities. RTC in 9 weeks. Orders: Orders AMB Diabetic Foot Exam Today B35.1 - Tinea unguium, E11.9 - Type 2 diabetes mellitus without complications, I73.9 - Peripheral vascular disease, unspecified, I83.93 - Asymptomatic varicose veins of bilateral lower extremities, M21.40 - Flat foot [pes planus] (acquired), unspecified foot Referrals Vascular Surgery Referral E11.9 - Type 2 diabetes mellitus without complications, I73.9 - Peripheral vascular disease, unspecified, I83.93 - Asymptomatic varicose veins of bilateral lower extremities Medications: New [Diabetic shoes and inserts] Please dispense 1 pair of shoes and 1-3 pairs of inserts 1 ea 0RF B35.1 - Tinea unguium, E11.9 - Type 2 diabetes mellitus without complications, I73.9 - Peripheral vascular disease, unspecified, I83.93 - Asymptomatic varicose veins of bilateral lower extremities, M21.40 - Flat foot [pes planus] (acquired), unspecified foot Coding Level of Care Code New Pt Level 4 (27944) Diagnoses Type 2 diabetes mellitus with diabetic peripheral angiopathy without gangrene, unspecified whether correction insulin use E11.51 Diabetes mellitus type: type 2 Diabetes mellitus complication status: with circulatory complication Varicose veins of both lower extremities with inflammation I83.11; I83.12 Varicose vein complication: inflammation PVD (peripheral vascular disease) I73.9 Pes planus of both feet M21.41; M21.42 Laterality: bilateral Tinea unguium B35.1 CPT Codes Diabetic Foot Exam - CPT: G9226 - Diabetic Foot Exam ([id number]) Time Spent (min) 48
--- OUTSIDE RECORDS SUMMARY | 2025-07-11 14:21 | XMS_ITS | Patient Health Record ---
Author Organization [facility] Address [address] [place] [address] Care Team Providers Care Skates Operator Name Role Phone Mercy Blanco Primary Care Provider UnavailSon Pollack Jr Unavailable [phone] Reason For Referral No Information Medications Medication SIG (Take, Route, Frequency, Duration) Notes Start Date End Date Status Glimepiride 2 MG 1 tablet with breakf ast or the first main meal of the day Orally Once a day Active metFORMIN HCl 1000 MG 1 tablet with meal s Orally Twice a day Active Pravastatin Sodium 40 MG 1 tablet Orally Once a day Active Losartan Potassium-HCTZ 100-25 MG 1 tablet Orally Once a day Active Phenytoin Sodium Extended 100 MG 1 capsule Orally Three times a day Active Colyte with Flavor Packs 240 GM As directed Orally Over the specified time.; Duration: 1 day(s) 02/14/2015 Active Clotrimazole 1 % 1 application to aff ected area Externally Twice a day Active Problems Problem Type SNOMED Code ICD Code Onset Dates Problem Status W/U Status Risk Notes Problem Colon cancer screening (439304705) Colon cancer screening (V76.51) Active confirmed Plan Of Treatment Future Test Test Name Order Date COLONOSCOPY 02/14/2015 Insurance Providers Payer Name Payer Address Payer Phone Subscriber Number Group Number Insured Name Patient Relationship to Insured Coverage Start Date Coverage End Date [employer] [address] [place] [phone] [id number] GAVIN MCLEAN Self - patient is the insured MEDICAID OF [facility] [address] [place] [address] [phone] [id number] GAVIN MCLEAN Self - patient is the insured Medical (General) History Medical History History ICD Code Down syndrome diabetes mellitus hypertension seizure disorder osteoporosis
--- OUTSIDE RECORDS SUMMARY | 2025-07-11 14:21 | XMS_ITS | Patient Health Record ---
[facility] Address [address] [place] [address] Care Team Providers Care Ab Initio Etl Developer Name Role Phone David Dominguez MD Primary Care Provider Pat Shields Unavailable [phone] Reason For Referral No Information Encounters Encounter Location Date Provider Diagnosis [facility] [address] [place] [address] 04/25/2025 Pat Figueroa [facility] [address] [place] [address] 07/05/2025 Pat Figueroa Plan Of Treatment No Information Insurance Providers Payer Name Payer Address Payer Phone Subscriber Number Group Number Insured Name Patient Relationship to Insured Coverage Start Date Coverage End Date Medicare National [employer] [address] [place] [address] [id number] Raegan Bird Self - patient is the insured
== END 2025-07-11 13:03 | disposition home or self-care (01) ==
LOC: HO.HPODS 12:31
PROVIDERS: PCP Internal Medicine; Visit Provider Student in an Organized Health Care Education/Training Program
DX: E11.51 Type 2 diabetes mellitus with diabetic peripheral angiopathy without gangrene (principal); I83.11 Varicose veins of right lower extremity with inflammation; I83.12 Varicose veins of left lower extremity with inflammation; I73.9 Peripheral vascular disease, unspecified; M21.41 Flat foot [pes planus] (acquired), right foot; M21.42 Flat foot [pes planus] (acquired), left foot; B35.1 Tinea unguium
CPT/HCPCS: 99204; G9226

== ENCOUNTER → 2025-07-11 12:30 | Outpatient (BNVA) | payer MEDICARE, MEDICAID, SELFPAY | PROVIDERS: PCP Internal Medicine; Visit Provider Student in an Organized Health Care Education/Training Program | DX: E11.51 Type 2 diabetes mellitus with diabetic peripheral angiopathy without gangrene (principal); I83.11 Varicose veins of right lower extremity with inflammation; I73.9 Peripheral vascular disease, unspecified; M21.41 Flat foot [pes planus] (acquired), right foot; M21.42 Flat foot [pes planus] (acquired), left foot; B35.1 Tinea unguium | CPT/HCPCS: 99202 ==

== ENCOUNTER 2025-07-12 17:28 | Emergency (ER) | payer MEDICARE, MEDICAID, SELFPAY ==
--- OUTSIDE RECORDS SUMMARY | 2025-05-02 05:30 | XMS_ITS ---
Author Organization [facility] [place] Address [address] [place] [phone] Care Team Providers Care Asp Net Developer Name Role Phone David Dominguez MD Primary Care Provider Pat Shields Unavailable [phone] Encounters Encounter Location Date Provider Diagnosis [facility] [address] [place] [address] 05/02/2025 Pat Figueroa Plan Of Treatment No Information Progress Notes * Raegan MCLEAN GDOB:1945 (79 yo F)Acc No.[id number]:05/02/2025 Progress Notes Patient: Raegan JOHNSON Provider: Abel Figueroa DPM :1945 A ge:79 Y S ex:Female Date:05/02/2025 Address:[address] [place], [place] [id number] Pcp:David Dominguez MD Subjective: * Chief Complaints: [...] 0 05/02/2025 Generated for Khalida jaime/Wilman/eTransmitting on: 1 09/11/2024 07:10 PM EST
--- NOTE | ~2025-07-12 | CT_ITS ---
CLINICAL HISTORY: fall ?head strike, neck pain CT cervical spine without contrast Comparison: CT/REG/SR - CT CERVICAL SPINE WO IV CON - 12/25/23 17:33 EDT Findings: Normal vertebral body alignment. Multilevel degenerative changes of the cervical spine including anterior bridging osteophytes from C5-C7. Endplate sclerosis and uncovertebral hypertrophy is worst at C6-C7 and causes mild spinal canal narrowing. No acute fractures or dislocations. Soft tissues of the neck are normal. Lung apices are clear. IMPRESSION: No acute fracture or traumatic subluxation of the cervical spine. This document has been electronically signed by: Jenny Stephen MD on 07/12/2025 19:22:30
--- NOTE | ~2025-07-12 | CT_ITS ---
CLINICAL HISTORY: fall ?head strike, headache CT Head without contrast Comparison: CT/SR - CT HEAD WITHOUT IV CONTRAST - 12/25/23 17:33 EDT Findings: Moderate right matter hypodensities most likely secondary to chronic ischemic small vessel disease. No large vessel territory infarct. No acute intracranial hemorrhage. No mass effect, midline shift, or herniation. The cerebellar tonsils are appropriately positioned. Orbits: The lenses have been replaced. Paranasal sinuses: Moderate mucoperiosteal thickening of the right sphenoid sinus in the ethmoid sinuses. The mastoid air cells are well aerated. The soft tissues are unremarkable. No acute displaced calvarial fracture. Impression: No acute intracranial abnormality. Moderate mucoperiosteal thickening of the sphenoid and ethmoid sinuses similar to prior exams. Correlate with symptoms of sinusitis. This document has been electronically signed by: Jenny Stephen MD on 07/12/2025 19:11:15
[2025-07-12 17:42] VITALS: BP 136/74; PULSE 94; RESP 18; TEMP 36.2; O2SAT 98; BMI 21.5
--- NOTE | 2025-07-12 17:43 | ED.GENADULT ---
HPI - General Adult General Chief complaint: Fall Stated complaint: fell on right side (program requesting exam) Time Seen by Provider: 07/12/25 19:05 History of Present Illness ED Provider: Jose HALE narrative: The patient is an 79-year-old chronically disabled woman who lives at a residential. She has both physical and intellectual disabilities. She was at a day program today. Apparently she fell over onto her right side. She was transferring from her walker to a wheelchair at the day program. There was no obvious sign of injury at the time and she was transferred back to her residential. After the residential learned of this fall they followed protocol and had her brought to the emergency room. The patient is nonverbal but seemed to indicate that she might be having some head pain. There was no other sign of pain or injury according to residential staff. Related Data Home Medications ?Medication ?Instructions ?Recorded ?Confirmed alendronate 70 mg tablet 70 mg PO QWEEK 11/01/22 11/01/22 amlodipine 2.5 mg tablet 1 tab PO DAILY@1700 11/01/22 11/01/22 cetirizine 10 mg tablet 1 tab PO DAILY 11/01/22 11/01/22 fluticasone propionate 50 2 spray intranasal DAILY 11/01/22 11/01/22 mcg/actuation nasal spray,suspension glimepiride 2 mg tablet 1 tab PO DAILY 11/01/22 11/01/22 hydrochlorothiazide 25 mg tablet 1 tab PO DAILY 11/01/22 11/01/22 losartan 100 mg tablet 1 tab PO DAILY 11/01/22 11/01/22 metformin 1,000 mg tablet 1 tab PO BID 11/01/22 11/01/22 phenytoin sodium extended 100 mg 200 mg PO DAILY 11/01/22 11/01/22 capsule pravastatin 40 mg tablet 1 tab PO BEDTIME 11/01/22 11/01/22 Previous Rx's ?Medication ?Instructions ?Recorded cefuroxime axetil 500 mg tablet 500 mg PO BID #4 tabs 11/03/22 Diabetic shoes and inserts #1 ea 07/11/25 Allergies Allergy/AdvReac Type Severity Reaction Status Date / Time JULIET Inhibitors (JULIET Allergy Unknown UNKNOWN Verified 07/12/25 17:44 INHIBITORS) Review of Systems Review of Systems: Yes Unobtainable due to mental status PMFSH Past Medical History Medical History (Updated 07/13/25 @ 00:00 by Vero Luo) Pes planus Tinea unguium PVD (peripheral vascular disease) Varicose veins of both lower extremities Adult failure to thrive Swallowing difficulty COVID-19 Seizures Osteoporosis Hyperlipidemia Hypertension Diabetes Intellectual disability Social History Social History Household Members: Other Housing Other:: residential Do you presently have visiting nurse or other home services: No (group tester at bedside is unsure) Alcohol intake: never Patient Tobacco Use Status: Never used Tobacco e-Cigarette/Vaping Use: Never Used Advance Directives: Yes Advance Directives Information Provided: No Advance Directives on File: No Do you have a plan to hurt others: No Plan service: No Current occupational status: disabled Physical Exam ED Vital Signs: Vital Signs - 24 hr 07/12/25 17:42 07/12/25 18:13 07/12/25 20:21 Temperature 97.2 F 97.8 F 97.8 F Pulse Rate 94 88 88 Respiratory Rate 18 16 16 Blood Pressure 136/74 143/89 H 143/89 H Pulse Oximetry 98 98 98 Oxygen Delivery Method Room Air Room Air Room Air BMI result Body Mass Index 21.5 Const Other: The patient is a chronically ill-appearing 79-year-old woman who was awake and alert. She is nonverbal but was able to answer simple questions by pointing. She did not seem in distress. HENMT Other: No obvious signs of trauma to the head or the face. No raccoon eyes. No otero sign. Eyes General: appearance normal, both eyes and all related structures Neck Other: No significant posterior C-spine tenderness. she seemed to be moving her neck easily without apparent discomfort. Chest Other: No chest wall tenderness Resp Effort & Inspection: normal respiratory effort Auscultation: clear to auscultation bilaterally Cardio Rate: regular rate Rhythm: regular rhythm Heart sounds: S1 normal heart sound present and S2 normal heart sound present GI Other: the abdomen is soft and nontender Skin Other: no bruising or other signs of trauma. Neuro Other: The patient is awake but nonverbal. She seems to understand certain simple communications. She seems able to point when asked if anything hurts. She points to her head. Pupils are round equal, eye movements are intact, the face is symmetrical, she seemed to have symmetrical tone in her extremities. I think she is probably at her neurological baseline and has a nonfocal exam. Extrem Other: No deformities to the extremities. I was able to move her arms and her legs without causing any apparent discomfort. Specifically her right arm and her right leg including her right hip and her right shoulder did not seem to show signs of injury. Course Course Course Narrative: This is a Rapid Medical Examination (RME) performed by J Luis Saleh PA-C in triage. Full HPI, ROS, assessment and treatment plan per primary provider in the Main ED. Hx: 79 yo F here today w/ nurse behavioral health care following a witnessed fall occurring around 1500 today. patient fell out of her wheelchair onto her right side. staff did not see her hit her head however she is now endorsing headache neck pain. per nurse behavioral health care, she is at her baseline. no other concerns. Plan: imaging Medical Decision Making Medical Decision Making MDM Narrative: The patient is an intellectually and physically disabled 79-year-old woman who lives at a residential. She has been today at a day program. at the day program she apparently had a fall, falling onto her right side when she was transferring from her walker to a wheelchair. There was no loss of consciousness. She was subsequently transferred back to her residential. She was then sent to the emergency room as part of their protocol because of falls. Here she does not seem obviously injured. A head CT and a cervical spine CT has been ordered prior to my evaluation. These are unremarkable. I think the patient seems to be without significant injury and may return to her residential. Discharge Plan Discharge Clinical Impression: Fall, Head pain Patient Disposition: Home, Self-Care Additional Instructions: There are no signs of any injuries from the fall earlier today. She has a CAT scan of her head that was negative. Also a CAT scan of the bones of the neck. Please continue her regular medications and any other usual care. I do not see any indication to change her current management. Please have her follow up with her regular doctor. Return to the emergency room if significantly worse. Prescriptions: No Action cetirizine 10 mg tablet 1 tab PO DAILY pravastatin 40 mg tablet 1 tab PO BEDTIME alendronate 70 mg tablet 70 mg PO QWEEK Rx Instructions: MO amlodipine 2.5 mg tablet 1 tab PO DAILY@1700 phenytoin sodium extended 100 mg capsule 200 mg PO DAILY glimepiride 2 mg tablet 1 tab PO DAILY metformin 1,000 mg tablet 1 tab PO BID hydrochlorothiazide 25 mg tablet 1 tab PO DAILY losartan 100 mg tablet 1 tab PO DAILY fluticasone propionate 50 mcg/actuation spray,suspension 2 spray intranasal DAILY cefuroxime axetil 500 mg tablet 500 mg PO BID Qty: 4 0RF (DME) Diabetic shoes and inserts See Rx Instructions .Route .MEDSUPPLY Qty: 1 0RF Rx Instructions: Please dispense 1 pair of shoes and 1-3 pairs of inserts Referrals: [facility] [Provider Group] Interventions: ED Discharge Assessment Last Done: 07/12/25 20:21 Discharge Date/Time: 07/12/25 20:21 Print Language: Divehi
[2025-07-12 18:13] VITALS: BP 143/89; PULSE 88; RESP 16; TEMP 36.6; O2SAT 98
--- OUTSIDE RECORDS SUMMARY | 2025-07-12 19:11 | XMS_ITS | Patient Health Record ---
Author Organization [facility] Address [address] [place] [address] Care Team Providers Care Cylindrical Mixer Name Role Phone Mercy Blanco Primary Care Provider UnavailSon Pollack Jr Unavailable [phone] Reason For Referral No Information Medications Medication [...] Status Risk Notes Problem Colon cancer screening ([id number]) Colon cancer screening (V76.51) Active confirmed Plan Of Treatment Future Test Test Name Order Date COLONOSCOPY 02/14/2015 Insurance Providers Payer Name Payer Address Payer Phone Subscriber Number Group Number Insured Name Patient Relationship to Insured Coverage Start Date Coverage End Date [employer] [address] [place] [phone] [id number] GAVIN MCLEAN Self - patient is the insured MEDICAID OF [facility] [address] [place] [address] [id number] GAVIN MCLEAN Self - patient is the insured Medical (General) History Medical History History ICD Code Down syndrome diabetes mellitus hypertension seizure disorder osteoporosis
--- OUTSIDE RECORDS SUMMARY | 2025-07-12 19:11 | XMS_ITS | Patient Health Record ---
[facility] Address [address] [place] [address] Care Team Providers Care Gi Technician Name Role Phone David Dominguez MD Primary Care Provider Pat Shields Unavailable [phone] Reason For Referral No Information Encounters Encounter Location Date Provider Diagnosis [facility] [address] [place] [address] 04/25/2025 Pat Figueroa [facility] [address] [place] [address] 07/05/2025 Pat Figueroa Plan Of Treatment No Information Insurance Providers Payer Name Payer Address Payer Phone Subscriber Number Group Number Insured Name Patient Relationship to Insured Coverage Start Date Coverage End Date Medicare National [employer] [address] [facility] [place] [address] [id number] Raegan Bird Self - patient is the insured
[2025-07-12 20:21] VITALS: BP 143/89; PULSE 88; RESP 16; TEMP 36.6; O2SAT 98
== END 2025-07-12 20:21 | disposition home or self-care (01) ==
PROVIDERS: Emergency Provider Emergency Medicine
DX: Z04.3 Encounter for examination and observation following other accident (principal); R51.9 Headache, unspecified; I10 Essential (primary) hypertension; E11.9 Type 2 diabetes mellitus without complications; F79 Unspecified intellectual disabilities; Z91.81 History of falling; Z73.6 Limitation of activities due to disability
CPT/HCPCS: 70450; 72125; 99283; 99284